=== PATIENT | male | born 1955 | race Caucasian/White ===

== ENCOUNTER 2020-05-30 06:30 | Day surgery (SDC) | payer BC, SELFPAY ==
[2020-05-26 14:44] VITALS: BMI 31.6
--- NOTE | 2020-05-29 09:39 | HO.ANESPROP2 ---
Documented by User: Eve Olivares 05/29/20 09:40 HPI - Anesthesia Eval Consult details Narrative: 64yo M for Colonoscopy FOR[facility]LY [facility] Past Medical History Medical History BPH (benign prostatic hyperplasia) Diabetes mellitus Elevated cholesterol HTN (hypertension) Renal calculi Surgical History Surgical History History of bilateral inguinal hernia repair Social History Social History Alcohol intake: current Alcohol intake frequency: a few times a month Use of substances other than those prescribed or required for medical reasons: No Advance Directives: No Advance Directives Information Provided: No Advance Directives on File: No Meds Allergies Allergy/AdvReac Type Severity Reaction Status Date / Time No Known Allergies Allergy Unverified 04/03/20 17:08 Home Medications Medication Instructions Recorded Confirmed Type atenolol 100 mg PO DAILY 05/26/20 05/26/20 History cholecalciferol (vitamin D3) 25 mcg PO DAILY 05/26/20 05/26/20 History [Vitamin D3] lisinopril 40 mg PO DAILY 05/26/20 05/26/20 History metformin 500 mg PO BID 05/26/20 05/26/20 History nifedipine 30 mg PO DAILY 05/26/20 05/26/20 History oxybutynin chloride 10 mg PO DAILY 05/26/20 05/26/20 History simvastatin 20 mg PO BEDTIME 05/26/20 05/26/20 History tamsulosin 0.4 mg PO BEDTIME 05/26/20 05/26/20 History Exam Exam Date and Time: May 29, 2020 0939 Height,Weight and Vital Signs: Height 5 ft 5 in Weight 86.183 kg Assessment and Plan Assessment Anesthesia Assessment: Chart Reviewed Documented by User: Dmitry Marks 05/30/20 07:53 [facility] Past Medical History Medical History BPH (benign prostatic hyperplasia) Diabetes mellitus Elevated cholesterol HTN (hypertension) Renal calculi Surgical History Surgical History History of bilateral inguinal hernia repair Social History Social History Alcohol intake: current Alcohol intake frequency: a few times a month Use of substances other than those prescribed or required for medical reasons: No Advance Directives: No Advance Directives Information Provided: No Advance Directives on File: No Meds Allergies Allergy/AdvReac Type Severity Reaction Status Date / Time No Known Allergies Allergy Unverified 04/03/20 17:08 Home Medications Medication Instructions Recorded Confirmed Type atenolol 100 mg PO DAILY 05/26/20 05/26/20 History cholecalciferol (vitamin D3) 25 mcg PO DAILY 05/26/20 05/26/20 History [Vitamin D3] lisinopril 40 mg PO DAILY 05/26/20 05/26/20 History metformin 500 mg PO BID 05/26/20 05/26/20 History nifedipine 30 mg PO DAILY 05/26/20 05/26/20 History oxybutynin chloride 10 mg PO DAILY 05/26/20 05/26/20 History simvastatin 20 mg PO BEDTIME 05/26/20 05/26/20 History tamsulosin 0.4 mg PO BEDTIME 05/26/20 05/26/20 History Exam Airway Mallampati Class: II TM Dist: >3cm Neck ROM: Full Denture: Upper Loose/Missing/Broken Teeth: Yes (Lower poor dentition) Heart: [id number] Lungs: cta b/l Assessment and Plan Assessment Anesthesia Assessment: Anesthesia Plan Discussed, Smoking Cess. Discussed, PAT Visit and Chart Reviewed Final Anesthetic Review NPO: Yes ASA Class: III Final Preanesthetic Review: No Changes in Pt Med Stat, Meds/Allgs Chart Reviewed, Consent Obtained/Reviewed and Anes Risks/Benef Reviewed Patient Risk: Low Procedure Risk: Low Assessment/Block/Sedation in SS: Assess/Block/Sedation-SS Anesthetic Plan Anesthetic Plan: MAC: Disposition: Standard PACU
[2020-05-30 07:02] VITALS: BP 170/89; PULSE 72; RESP 18; TEMP 36.1; O2SAT 97
[2020-05-30 07:04] LABS: Glucose, Whole Blood 125 mg/dL (60-115)
[2020-05-30] MEDS: Lactated Ringers 1,000 ML 100 ML IVCONT (07:15)
[2020-05-30 08:35] VITALS: BP 98/63; PULSE 75; RESP 16; TEMP 36.4; O2SAT 96
--- NOTE | 2020-05-30 08:40 | PM.OP ---
Brief Operative Note Date of Service: 05/30/20 Pre-op diagnosis: Screening Post-op diagnosis: other (Colon polyp) Procedure: Colonoscopy to cecum with biopsy and removal of polyp Surgeon: Ravinder Montana Anesthesia: MAC Estimated blood loss (mL): 2.0 Pathology: other (A. Ascending colon polyp) Condition: stable Disposition: PACU
[2020-05-30 08:50] VITALS: BP 109/77; PULSE 69; RESP 17; TEMP 36.4; O2SAT 97
--- NOTE | 2020-05-30 09:05 | HO.POSTANES ---
Post Anesthesia Evaluation Post Anesthesia Evaluation Vital Signs: Vital Signs Temp Pulse Resp BP Pulse Ox 05/30/20 08:35 97.6 F 75 16 98/63 96 05/30/20 07:02 96.9 F 72 18 170/89 H 97 Anesthesia: Monitored Mental Status: Awake Pain Control: Satisfactory Nausea/Vomiting: None Hydration: Adequate Anesthesia-Related Issues: No Anes. Related Issues
--- NOTE | 2020-05-30 09:26 | OP_ITS ---
SURGEON: Ravinder Montana MD INDICATIONS: The patient presents for evaluation of colorectal cancer screening. Full consent obtained from him for this, including risks of bleeding and perforation. PREOPERATIVE DIAGNOSIS: Colorectal cancer screening. POSTOPERATIVE DIAGNOSIS: Colorectal cancer screening, small colon polyp, sigmoid diverticulosis, and internal hemorrhoids. PROCEDURE PERFORMED: Colonoscopy to cecum with biopsy and removal of polyp. ESTIMATED BLOOD LOSS: COMPLICATIONS: ANESTHESIA: Monitored anesthesia care. ASSISTANTS: SPECIMENS: DESCRIPTION OF PROCEDURE: The patient was placed in the left lateral decubitus position. The digital rectal exam revealed no abnormalities. The Olympus video pediatric colonoscope was entered into the rectum and advanced to the cecum with the assistance of abdominal wall pressure. Once in the cecum, I did identify normal-appearing cecal pouch with appendiceal orifice and a normal-appearing ileocecal valve. The entire cecum and ileocecal valve appeared normal. There was transillumination of light deep in the right lower quadrant. The scope was then slowly withdrawn assessing all mucosal surfaces carefully. Preparation was excellent. In the distal ascending colon was a flat approximately 4 mm polyp, which was biopsied and completely removed with cold biopsy forceps. I did not visualize any other polyps, colitis, nor angiodysplasia. There was a mild amount of sigmoid diverticulosis. In the rectum, scope was retroflexed visualizing small internal hemorrhoids, but no other pathology. The rectal mucosa appeared normal. The scope was straightened and withdrawn from the patient. He tolerated the procedure well and was returned to the recovery area in stable condition. IMPRESSION: 1. Small colon polyp, status post biopsy removal. 2. Sigmoid diverticulosis. 3. Internal hemorrhoids. PLAN: The results of the biopsy will be checked. If this is a tubular adenoma, I would recommend a followup colonoscopy in 5 years. If it is only hyperplastic, I would recommend a followup colonoscopy in 10 years. He will otherwise see me on a p.r.n. basis. This has been discussed with his . MD ELIE Oswald/SWATI / [id number]
== END 2020-05-30 09:20 | disposition home or self-care (01) ==
PROVIDERS: PCP Internal Medicine Medical Oncology; Visit Provider Internal Medicine
PROC: 0DJD8ZZ Inspection of Lower Intestinal Tract, Via Natural or Artificial Opening Endoscopic (ICD-10-PCS; CPT 45378; principal; 2020-05-30 07:30)
DX: Z12.11 Encounter for screening for malignant neoplasm of colon (principal); D12.2 Benign neoplasm of ascending colon; K57.30 Diverticulosis of large intestine without perforation or abscess without bleeding; K64.8 Other hemorrhoids; I10 Essential (primary) hypertension; E11.9 Type 2 diabetes mellitus without complications; N40.0 Benign prostatic hyperplasia without lower urinary tract symptoms; E78.00 Pure hypercholesterolemia, unspecified; Z79.84 Long term (current) use of oral hypoglycemic drugs; Z79.899 Other long term (current) drug therapy
CPT/HCPCS: 45380; 82947; 88305

== ENCOUNTER 2020-06-06 08:01 | Outpatient (REF) | payer BC, SELFPAY ==
[2020-06-06 10:06] LABS: MANUAL DIFF FLAG NO
[2020-06-06 10:13] LABS: Basophils Percent Auto 0.7 % (0-2); Eosinophils Absolute Auto 0.2 X10*3/uL (0.0-0.4); Eosinophils Percent Auto 3.6 % (0-4); Hemoglobin 15.6 g/dl (14.0-18.0); Imm Gran Abs Auto 0.02 X10*3/uL (0.00-0.03); Imm Gran Pct Auto 0.4 % (0.0-0.4); Lymphocytes Absolute Auto 1.5 X10*3/uL (1.2-4.9); Lymphocytes Percent Auto 27.2 % (20-40); Mean Corpuscular HGB Conc 33.9 g/dl (31.0-36.0); Mean Corpuscular Hemoglobin 29.8 pg (27.0-33.0); Mean Platelet Volume 10.4 fL (9.4-12.4); Monocytes Absolute Auto 0.4 X10*3/uL (0.1-1.2); Neutrophils Absolute Auto 3.3 X10*3/uL (2.0-8.3); Neutrophils Percent Auto 60.1 % (45-73); Platelet Count 208 X10*3/uL (160-400); Red Blood Count 5.23 X10*6/uL (4.60-5.80); Red Cell Distribution Width 11.9 % (11.0-16.0); White Blood Count 5.5 X10*3/uL (4.8-10.8)
[2020-06-06 10:36] LABS: Estimated Average Glucose 137 mg/dL; Hemoglobin A1c % 6.4 %
[2020-06-06 10:41] LABS: Alanine Aminotransferase 13 U/L (0-40); Albumin Level 4.3 g/dL (3.5-5.0); Alkaline Phosphatase 97 U/L (39-117); Anion Gap 11 (12-20); Aspartate Amino Transferase 10 U/L (5-37); Bilirubin Total 0.7 mg/dL (0.0-1.0); Blood Urea Nitrogen 14 mg/dL (9-16); Carbon Dioxide 29 mmol/L (22-29); Chloride 103 mmol/L (96-108); Cholesterol 156 mg/dL; Estimated Glomerular Filt Rate > 60; Glucose Fasting 139 mg/dL (60-99); HDL Cholesterol 46 mg/dL; LDL Cholesterol Calculated 89 mg/dl; Potassium 4.2 mmol/l (3.3-5.1); Sodium 139 mmol/L (135-145); Total Protein 6.8 g/dL (6.5-8.0); Triglycerides 108 mg/dL
== END 2020-06-06 08:02 | disposition home or self-care (01) ==
LOC: HO.10HDL 08:01
PROVIDERS: Visit Provider Internal Medicine Medical Oncology
DX: E11.9 Type 2 diabetes mellitus without complications (principal); E78.5 Hyperlipidemia, unspecified; I10 Essential (primary) hypertension
CPT/HCPCS: 36415; 80053; 80061; 83036; 85025

== ENCOUNTER 2020-08-18 12:47 | Outpatient (REF) | payer BC, SELFPAY | END 2020-08-18 12:48 | disposition home or self-care (01) | LOC: HO.LAB 12:47 | PROVIDERS: Visit Provider Internal Medicine | DX: Z20.822 Contact with and (suspected) exposure to COVID-19 (principal) | CPT/HCPCS: 36415; C9803; U0003; U0005 ==

== ENCOUNTER 2020-09-24 07:32 | Outpatient (REF) | payer BC, SELFPAY ==
[2020-09-24 09:57] LABS: MANUAL DIFF FLAG NO
[2020-09-24 10:07] LABS: Basophils Absolute Auto 0.1 X10*3/uL (0.0-0.2); Eosinophils Absolute Auto 0.3 X10*3/uL (0.0-0.4); Eosinophils Percent Auto 5.6 % (0-4); Hematocrit 42.4 % (42-52); Hemoglobin 14.5 g/dl (14.0-18.0); Imm Gran Abs Auto 0.02 X10*3/uL (0.00-0.03); Imm Gran Pct Auto 0.3 % (0.0-0.4); Lymphocytes Absolute Auto 1.6 X10*3/uL (1.2-4.9); Lymphocytes Percent Auto 26.1 % (20-40); Mean Corpuscular HGB Conc 34.2 g/dl (31.0-36.0); Mean Corpuscular Hemoglobin 29.7 pg (27.0-33.0); Mean Corpuscular Volume 86.9 fL (80-98); Mean Platelet Volume 10.3 fL (9.4-12.4); Monocytes Absolute Auto 0.6 X10*3/uL (0.1-1.2); Monocytes Percent Auto 9.4 % (2-11); Neutrophils Absolute Auto 3.5 X10*3/uL (2.0-8.3); Neutrophils Percent Auto 57.6 % (45-73); Platelet Count 230 X10*3/uL (160-400); Red Blood Count 4.88 X10*6/uL (4.60-5.80); Red Cell Distribution Width 12.9 % (11.0-16.0); White Blood Count 6.1 X10*3/uL (4.8-10.8)
[2020-09-24 10:41] LABS: Alanine Aminotransferase 12 U/L (0-40); Albumin Level 4.4 g/dL (3.5-5.0); Alkaline Phosphatase 94 U/L (39-117); Anion Gap 13 (12-20); Aspartate Amino Transferase 10 U/L (5-37); Blood Urea Nitrogen 15 mg/dL (9-16); Carbon Dioxide 27 mmol/L (22-29); Chloride 104 mmol/L (96-108); Cholesterol 162 mg/dL; Estimated Glomerular Filt Rate > 60; Glucose Fasting 146 mg/dL (60-99); HDL Cholesterol 44 mg/dL; LDL Cholesterol Calculated 103 mg/dl; Potassium 3.9 mmol/L (3.3-5.1); Sodium 140 mmol/L (135-145); Total Protein 6.8 g/dL (6.5-8.0); Triglycerides 76 mg/dL
[2020-09-24 11:04] LABS: Prostate Specific Antigen 1.26 ng/mL (<0.05-4.0)
== END 2020-09-24 07:33 | disposition home or self-care (01) ==
LOC: HO.10HDL 07:32
PROVIDERS: Visit Provider Internal Medicine Medical Oncology
DX: E78.5 Hyperlipidemia, unspecified (principal); E11.9 Type 2 diabetes mellitus without complications; I10 Essential (primary) hypertension; N40.1 Benign prostatic hyperplasia with lower urinary tract symptoms
CPT/HCPCS: 36415; 80053; 80061; 84153; 85025

== ENCOUNTER 2021-02-04 07:34 | Outpatient (REF) | payer MEDICARE, SELFPAY ==
[2021-02-04 10:24] LABS: MANUAL DIFF FLAG NO
[2021-02-04 10:29] LABS: Basophils Percent Auto 0.6 % (0-2); Eosinophils Absolute Auto 0.4 X10*3/uL (0.0-0.4); Eosinophils Percent Auto 5.2 % (0-4); Hematocrit 43.4 % (42-52); Hemoglobin 14.6 g/dl (14.0-18.0); Imm Gran Abs Auto 0.03 X10*3/uL (0.00-0.03); Imm Gran Pct Auto 0.4 % (0.0-0.4); Lymphocytes Absolute Auto 1.8 X10*3/uL (1.2-4.9); Lymphocytes Percent Auto 24.5 % (20-40); Mean Corpuscular HGB Conc 33.6 g/dl (31.0-36.0); Mean Corpuscular Hemoglobin 29.5 pg (27.0-33.0); Mean Corpuscular Volume 87.7 fL (80-98); Mean Platelet Volume 10.6 fL (9.4-12.4); Monocytes Absolute Auto 0.6 X10*3/uL (0.1-1.2); Monocytes Percent Auto 8.8 % (2-11); Neutrophils Absolute Auto 4.4 X10*3/uL (2.0-8.3); Neutrophils Percent Auto 60.5 % (45-73); Platelet Count 212 X10*3/uL (160-400); Red Blood Count 4.95 X10*6/uL (4.60-5.80); Red Cell Distribution Width 12.8 % (11.0-16.0); White Blood Count 7.3 X10*3/uL (4.8-10.8)
[2021-02-04 10:40] LABS: Alanine Aminotransferase 10 U/L (0-40); Albumin Level 4.3 g/dL (3.5-5.0); Alkaline Phosphatase 101 U/L (39-117); Anion Gap 14 (12-20); Aspartate Amino Transferase 12 U/L (5-37); Bilirubin Total 1.1 mg/dL (0.0-1.0); Blood Urea Nitrogen 14 mg/dL (9-16); Calcium 9.3 mg/dL (8.4-10.2); Carbon Dioxide 25 mmol/L (22-29); Chloride 105 mmol/L (96-108); Cholesterol 146 mg/dL; Estimated Glomerular Filt Rate > 60; Glucose Fasting 145 mg/dL (60-99); HDL Cholesterol 46 mg/dL; LDL Cholesterol Calculated 80 mg/dl; Potassium 3.6 mmol/L (3.3-5.1); Sodium 140 mmol/L (135-145); Total Protein 6.9 g/dL (6.5-8.0); Triglycerides 102 mg/dL
[2021-02-04 10:41] LABS: Estimated Average Glucose 148 mg/dL; Hemoglobin A1c % 6.8 %
[2021-02-04 10:53] LABS: Creatinine Urine 70.66 mg/dL; Microalbum/Creatinine Ratio Ur 50.9 ug/mg cr
== END 2021-02-04 07:35 | disposition home or self-care (01) ==
LOC: HO.10HDL 07:34
PROVIDERS: PCP Internal Medicine Medical Oncology; Visit Provider Internal Medicine Medical Oncology
DX: E11.9 Type 2 diabetes mellitus without complications (principal); E78.5 Hyperlipidemia, unspecified; I10 Essential (primary) hypertension; E66.9 Obesity, unspecified
CPT/HCPCS: 36415; 80053; 80061; 82043; 83036; 85025

== ENCOUNTER 2021-06-17 08:13 | Outpatient (REF) | payer MEDICARE, SELFPAY ==
[2021-06-17 10:11] LABS: MANUAL DIFF FLAG NO
[2021-06-17 10:18] LABS: Basophils Absolute Auto 0.1 X10*3/uL (0.0-0.2); Basophils Percent Auto 0.8 % (0-2); Eosinophils Absolute Auto 0.3 X10*3/uL (0.0-0.4); Eosinophils Percent Auto 4.8 % (0-4); Hematocrit 46.4 % (42.0-52.0); Hemoglobin 15.8 g/dl (14.0-18.0); Imm Gran Abs Auto 0.02 X10*3/uL (0.00-0.03); Imm Gran Pct Auto 0.3 % (0.0-0.4); Lymphocytes Absolute Auto 1.5 X10*3/uL (1.2-4.9); Lymphocytes Percent Auto 23.3 % (20-40); Mean Corpuscular HGB Conc 34.1 g/dl (31.0-36.0); Mean Corpuscular Hemoglobin 29.8 pg (27.0-33.0); Mean Corpuscular Volume 87.4 fL (80.0-98.0); Mean Platelet Volume 10.5 fL (9.4-12.4); Monocytes Absolute Auto 0.5 X10*3/uL (0.1-1.2); Neutrophils Absolute Auto 3.9 x10*3/uL (2.0-8.3); Neutrophils Percent Auto 62.8 % (45-73); Platelet Count 217 X10*3/uL (160-400); Red Blood Count 5.31 X10*6/uL (4.60-5.80); White Blood Count 6.3 X10*3/uL (4.8-10.8)
[2021-06-17 10:28] LABS: Estimated Average Glucose 140 mg/dL; Hemoglobin A1c % 6.5 %
[2021-06-17 10:53] LABS: Alanine Aminotransferase 14 U/L (0-40); Albumin Level 4.5 g/dL (3.5-5.0); Alkaline Phosphatase 101 U/L (39-117); Anion Gap 14 (12-20); Aspartate Amino Transferase 12 U/L (5-37); Blood Urea Nitrogen 15 mg/dL (9-16); Calcium 9.6 mg/dL (8.4-10.2); Carbon Dioxide 26 mmol/L (22-29); Chloride 103 mmol/L (96-108); Cholesterol 176 mg/dL; Estimated Glomerular Filt Rate > 60; Glucose Fasting 160 mg/dL (60-99); HDL Cholesterol 41 mg/dL; LDL Cholesterol Calculated 112 mg/dl; Potassium 3.7 mmol/L (3.3-5.1); Sodium 139 mmol/L (135-145); Total Protein 7.1 g/dL (6.5-8.0); Triglycerides 115 mg/dL
[2021-06-17 11:02] LABS: Prostate Specific Antigen 1.28 ng/mL (<0.05-4.0)
== END 2021-06-17 08:14 | disposition home or self-care (01) ==
LOC: HO.10HDL 08:13
PROVIDERS: Visit Provider Internal Medicine Medical Oncology
DX: Z12.5 Encounter for screening for malignant neoplasm of prostate (principal); E11.9 Type 2 diabetes mellitus without complications; E78.5 Hyperlipidemia, unspecified; E66.9 Obesity, unspecified
CPT/HCPCS: 36415; 80053; 80061; 83036; 84153; 85025

== ENCOUNTER 2021-09-18 08:27 | Outpatient (REF) | payer MEDICARE, SELFPAY ==
[2021-09-18 12:06] LABS: MANUAL DIFF FLAG NO
[2021-09-18 12:09] LABS: Basophils Absolute Auto 0.1 X10*3/uL (0.0-0.2); Basophils Percent Auto 0.8 % (0-2); Eosinophils Absolute Auto 0.3 X10*3/uL (0.0-0.4); Eosinophils Percent Auto 4.6 % (0-4); Hematocrit 46.1 % (42.0-52.0); Hemoglobin 15.7 g/dl (14.0-18.0); Imm Gran Abs Auto 0.03 X10*3/uL (0.00-0.03); Imm Gran Pct Auto 0.4 % (0.0-0.4); Lymphocytes Absolute Auto 1.5 X10*3/uL (1.2-4.9); Lymphocytes Percent Auto 20.8 % (20-40); Mean Corpuscular HGB Conc 34.1 g/dl (31.0-36.0); Mean Platelet Volume 10.9 fL (9.4-12.4); Monocytes Absolute Auto 0.6 X10*3/uL (0.1-1.2); Monocytes Percent Auto 7.8 % (2-11); Neutrophils Absolute Auto 4.8 x10*3/uL (2.0-8.3); Neutrophils Percent Auto 65.6 % (45-73); Platelet Count 209 X10*3/uL (160-400); Red Blood Count 5.24 X10*6/uL (4.60-5.80); Red Cell Distribution Width 12.3 % (11.0-16.0); White Blood Count 7.3 X10*3/uL (4.8-10.8)
[2021-09-18 12:21] LABS: Estimated Average Glucose 146 mg/dL; Hemoglobin A1c % 6.7 %
[2021-09-18 12:32] LABS: Alanine Aminotransferase 14 U/L (0-40); Albumin Level 4.3 g/dL (3.5-5.0); Alkaline Phosphatase 101 U/L (39-117); Anion Gap 14 (12-20); Aspartate Amino Transferase 10 U/L (5-37); Bilirubin Total 1.1 mg/dL (0.0-1.0); Blood Urea Nitrogen 15 mg/dL (9-16); Calcium 9.7 mg/dL (8.4-10.2); Carbon Dioxide 27 mmol/L (22-29); Chloride 102 mmol/L (96-108); Cholesterol 172 mg/dL; Estimated Glomerular Filt Rate > 60; Glucose Fasting 166 mg/dL (60-99); HDL Cholesterol 43 mg/dL; LDL Cholesterol Calculated 102 mg/dl; Potassium 3.8 mmol/L (3.3-5.1); Sodium 139 mmol/L (135-145); Total Protein 6.9 g/dL (6.5-8.0); Triglycerides 136 mg/dL
[2021-09-18 12:42] LABS: Creatinine Urine 55.56 mg/dL; Microalbum/Creatinine Ratio Ur 21.5 ug/mg cr
== END 2021-09-18 08:28 | disposition home or self-care (01) ==
LOC: HO.10HDL 08:27
PROVIDERS: Visit Provider Internal Medicine Medical Oncology
DX: E11.9 Type 2 diabetes mellitus without complications (principal); E78.5 Hyperlipidemia, unspecified
CPT/HCPCS: 36415; 80053; 80061; 82043; 83036; 85025

== ENCOUNTER 2021-12-17 06:22 | Outpatient (REF) | payer MEDICARE, SELFPAY ==
[2021-12-17 11:19] LABS: MANUAL DIFF FLAG NO
[2021-12-17 11:27] LABS: Basophils Absolute Auto 0.1 X10*3/uL (0.0-0.2); Basophils Percent Auto 0.9 % (0-2); Eosinophils Absolute Auto 0.4 X10*3/uL (0.0-0.4); Eosinophils Percent Auto 5.7 % (0-4); Hematocrit 45.5 % (42.0-52.0); Hemoglobin 15.3 g/dl (14.0-18.0); Imm Gran Abs Auto 0.02 X10*3/uL (0.00-0.03); Imm Gran Pct Auto 0.3 % (0.0-0.4); Lymphocytes Absolute Auto 1.4 X10*3/uL (1.2-4.9); Lymphocytes Percent Auto 22.1 % (20-40); Mean Corpuscular HGB Conc 33.6 g/dl (31.0-36.0); Mean Corpuscular Hemoglobin 30.3 pg (27.0-33.0); Mean Corpuscular Volume 90.1 fL (80.0-98.0); Mean Platelet Volume 10.7 fL (9.4-12.4); Monocytes Absolute Auto 0.5 X10*3/uL (0.1-1.2); Monocytes Percent Auto 8.3 % (2-11); Neutrophils Absolute Auto 4.1 x10*3/uL (2.0-8.3); Neutrophils Percent Auto 62.7 % (45-73); Platelet Count 225 X10*3/uL (160-400); Red Blood Count 5.05 X10*6/uL (4.60-5.80); Red Cell Distribution Width 12.7 % (11.0-16.0); White Blood Count 6.5 X10*3/uL (4.8-10.8)
[2021-12-17 11:31] LABS: Estimated Average Glucose 146 mg/dL; Hemoglobin A1c % 6.7 %
[2021-12-17 11:42] LABS: Microalbum/Creatinine Ratio Ur 27.8 ug/mg cr
[2021-12-17 11:45] LABS: Alanine Aminotransferase 12 U/L (0-40); Albumin Level 4.4 g/dL (3.5-5.0); Alkaline Phosphatase 104 U/L (39-117); Anion Gap 11 (12-20); Aspartate Amino Transferase 11 U/L (5-37); Bilirubin Total 0.8 mg/dL (0.0-1.0); Blood Urea Nitrogen 10 mg/dL (9-16); Calcium 9.5 mg/dL (8.4-10.2); Carbon Dioxide 26 mmol/L (22-29); Chloride 103 mmol/L (96-108); Cholesterol 162 mg/dL; Estimated Glomerular Filt Rate > 60; Glucose Fasting 163 mg/dL (60-99); HDL Cholesterol 43 mg/dL; LDL Cholesterol Calculated 99 mg/dl; Potassium 3.7 mmol/L (3.3-5.1); Sodium 136 mmol/L (135-145); Total Protein 6.9 g/dL (6.5-8.0); Triglycerides 103 mg/dL
[2021-12-17 12:10] LABS: Prostate Specific Antigen 1.56 ng/mL (<0.05-4.0)
== END 2021-12-17 06:23 | disposition home or self-care (01) ==
LOC: HO.HMGCLDS 06:22
PROVIDERS: PCP Internal Medicine Medical Oncology; Visit Provider Internal Medicine Medical Oncology
DX: E11.9 Type 2 diabetes mellitus without complications (principal); E78.5 Hyperlipidemia, unspecified; I10 Essential (primary) hypertension; N40.1 Benign prostatic hyperplasia with lower urinary tract symptoms; Z12.5 Encounter for screening for malignant neoplasm of prostate
CPT/HCPCS: 36415; 80053; 80061; 82043; 83036; 84153; 85025

== ENCOUNTER 2022-03-18 06:57 | Outpatient (REF) | payer MEDICARE, SELFPAY ==
[2022-03-18 11:36] LABS: MANUAL DIFF FLAG NO
[2022-03-18 11:42] LABS: Basophils Absolute Auto 0.1 X10*3/uL (0.0-0.2); Basophils Percent Auto 0.6 % (0-2); Eosinophils Absolute Auto 0.4 X10*3/uL (0.0-0.4); Eosinophils Percent Auto 5.5 % (0-4); Hematocrit 42.6 % (42.0-52.0); Hemoglobin 14.6 g/dl (14.0-18.0); Imm Gran Abs Auto 0.06 X10*3/uL (0.00-0.03); Imm Gran Pct Auto 0.7 % (0.0-0.4); Lymphocytes Percent Auto 24.3 % (20-40); Mean Corpuscular HGB Conc 34.3 g/dl (31.0-36.0); Mean Corpuscular Volume 87.7 fL (80.0-98.0); Mean Platelet Volume 10.5 fL (9.4-12.4); Monocytes Absolute Auto 0.7 X10*3/uL (0.1-1.2); Monocytes Percent Auto 8.2 % (2-11); Neutrophils Absolute Auto 4.9 x10*3/uL (2.0-8.3); Neutrophils Percent Auto 60.7 % (45-73); Platelet Count 263 X10*3/uL (160-400); Red Blood Count 4.86 X10*6/uL (4.60-5.80); White Blood Count 8.1 X10*3/uL (4.8-10.8)
[2022-03-18 11:51] LABS: Estimated Average Glucose 146 mg/dL; Hemoglobin A1c % 6.7 %
[2022-03-18 11:58] LABS: Alanine Aminotransferase 14 U/L (0-40); Albumin Level 4.3 g/dL (3.5-5.0); Alkaline Phosphatase 103 U/L (39-117); Anion Gap 17 (12-20); Aspartate Amino Transferase 11 U/L (5-37); Bilirubin Total 0.7 mg/dL (0.0-1.0); Blood Urea Nitrogen 16 mg/dL (9-16); Calcium 9.5 mg/dL (8.4-10.2); Carbon Dioxide 24 mmol/L (22-29); Chloride 103 mmol/L (96-108); Cholesterol 164 mg/dL; Estimated Glomerular Filt Rate > 60; Glucose Fasting 200 mg/dL (60-99); HDL Cholesterol 42 mg/dL; LDL Cholesterol Calculated 100 mg/dl; Sodium 140 mmol/L (135-145); Total Protein 6.9 g/dL (6.5-8.0); Triglycerides 114 mg/dL
== END 2022-03-18 06:58 | disposition home or self-care (01) ==
LOC: HO.HMGCLDS 06:57
PROVIDERS: PCP Internal Medicine Medical Oncology; Visit Provider Internal Medicine Medical Oncology
DX: E11.9 Type 2 diabetes mellitus without complications (principal); E78.5 Hyperlipidemia, unspecified; I10 Essential (primary) hypertension
CPT/HCPCS: 36415; 80053; 80061; 83036; 85025

== ENCOUNTER 2022-06-03 06:22 | Outpatient (REF) | payer MEDICARE, SELFPAY ==
[2022-06-03 11:24] LABS: MANUAL DIFF FLAG NO
[2022-06-03 11:43] LABS: Basophils Absolute Auto 0.1 X10*3/uL (0.0-0.2); Basophils Percent Auto 0.9 % (0-2); Eosinophils Absolute Auto 0.3 X10*3/uL (0.0-0.4); Eosinophils Percent Auto 5.3 % (0-4); Hematocrit 44.9 % (42.0-52.0); Imm Gran Abs Auto 0.02 X10*3/uL (0.00-0.03); Imm Gran Pct Auto 0.3 % (0.0-0.4); Lymphocytes Absolute Auto 1.8 X10*3/uL (1.2-4.9); Lymphocytes Percent Auto 28.5 % (20-40); Mean Corpuscular HGB Conc 33.4 g/dl (31.0-36.0); Mean Corpuscular Hemoglobin 29.8 pg (27.0-33.0); Mean Corpuscular Volume 89.3 fL (80.0-98.0); Mean Platelet Volume 10.9 fL (9.4-12.4); Monocytes Absolute Auto 0.5 X10*3/uL (0.1-1.2); Monocytes Percent Auto 8.1 % (2-11); Neutrophils Absolute Auto 3.7 x10*3/uL (2.0-8.3); Neutrophils Percent Auto 56.9 % (45-73); Platelet Count 210 X10*3/uL (160-400); Red Blood Count 5.03 X10*6/uL (4.60-5.80); Red Cell Distribution Width 12.7 % (11.0-16.0); White Blood Count 6.5 X10*3/uL (4.8-10.8)
[2022-06-03 12:10] LABS: Alanine Aminotransferase 13 U/L (0-40); Albumin Level 4.2 g/dL (3.5-5.0); Alkaline Phosphatase 94 U/L (39-117); Anion Gap 12 (12-20); Aspartate Amino Transferase 10 U/L (5-37); Bilirubin Total 0.8 mg/dL (0.0-1.0); Blood Urea Nitrogen 16 mg/dL (9-16); Calcium 9.3 mg/dL (8.4-10.2); Carbon Dioxide 29 mmol/L (22-29); Chloride 102 mmol/L (96-108); Cholesterol 158 mg/dL; Estimated Glomerular Filt Rate > 60; Glucose Fasting 176 mg/dL (60-99); HDL Cholesterol 46 mg/dL; LDL Cholesterol Calculated 94 mg/dl; Sodium 139 mmol/L (135-145); Total Protein 6.6 g/dL (6.5-8.0); Triglycerides 94 mg/dL
[2022-06-03 12:16] LABS: Creatinine Urine 96.59 mg/dL; Microalbum/Creatinine Ratio Ur 25.8 ug/mg cr
[2022-06-03 12:43] LABS: Estimated Average Glucose 151 mg/dL; Hemoglobin A1c % 6.9 %
== END 2022-06-03 06:23 | disposition home or self-care (01) ==
LOC: HO.HMGCLDS 06:22
PROVIDERS: PCP Internal Medicine Medical Oncology; Visit Provider Internal Medicine Medical Oncology
DX: E11.9 Type 2 diabetes mellitus without complications (principal); E66.9 Obesity, unspecified; E78.5 Hyperlipidemia, unspecified; I10 Essential (primary) hypertension
CPT/HCPCS: 36415; 80053; 80061; 82043; 83036; 85025

== ENCOUNTER 2022-10-06 07:57 | Outpatient (REF) | payer MEDICARE, SELFPAY ==
[2022-10-06 11:52] LABS: MANUAL DIFF FLAG NO
[2022-10-06 12:12] LABS: Basophils Absolute Auto 0.1 X10*3/uL (0.0-0.2); Basophils Percent Auto 1.1 % (0-2); Eosinophils Absolute Auto 0.4 X10*3/uL (0.0-0.4); Hematocrit 45.4 % (42.0-52.0); Hemoglobin 15.3 g/dl (14.0-18.0); Imm Gran Abs Auto 0.04 X10*3/uL (0.00-0.03); Imm Gran Pct Auto 0.6 % (0.0-0.4); Lymphocytes Absolute Auto 1.5 X10*3/uL (1.2-4.9); Lymphocytes Percent Auto 23.1 % (20-40); Mean Corpuscular HGB Conc 33.7 g/dl (31.0-36.0); Mean Corpuscular Hemoglobin 29.3 pg (27.0-33.0); Mean Platelet Volume 10.8 fL (9.4-12.4); Monocytes Absolute Auto 0.5 X10*3/uL (0.1-1.2); Monocytes Percent Auto 7.4 % (2-11); Neutrophils Absolute Auto 3.9 x10*3/uL (2.0-8.3); Neutrophils Percent Auto 60.8 % (45-73); Platelet Count 226 X10*3/uL (160-400); Red Blood Count 5.22 X10*6/uL (4.60-5.80); Red Cell Distribution Width 12.6 % (11.0-16.0); White Blood Count 6.3 X10*3/uL (4.8-10.8)
[2022-10-06 12:50] LABS: Estimated Average Glucose 189 mg/dL; Hemoglobin A1c % 8.2 %
[2022-10-06 12:54] LABS: Alanine Aminotransferase 12 U/L (0-40); Albumin Level 4.2 g/dL (3.5-5.0); Alkaline Phosphatase 105 U/L (39-117); Anion Gap 13 (12-20); Aspartate Amino Transferase 10 U/L (5-37); Blood Urea Nitrogen 13 mg/dL (9-16); Calcium 9.3 mg/dL (8.4-10.2); Carbon Dioxide 27 mmol/L (22-29); Chloride 103 mmol/L (96-108); Cholesterol 160 mg/dL; Estimated Glomerular Filt Rate > 60; Glucose Fasting 262 mg/dL (60-99); HDL Cholesterol 43 mg/dL; LDL Cholesterol Calculated 95 mg/dl; Potassium 3.9 mmol/L (3.3-5.1); Prostate Specific Antigen 1.47 ng/mL (<0.05-4.0); Sodium 139 mmol/L (135-145); Total Protein 6.5 g/dL (6.5-8.0); Triglycerides 110 mg/dL
== END 2022-10-06 07:58 | disposition home or self-care (01) ==
LOC: HO.HMGCLDS 07:57
PROVIDERS: PCP Internal Medicine Medical Oncology; Visit Provider Internal Medicine Medical Oncology
DX: Z00.00 Encounter for general adult medical examination without abnormal findings (principal); E11.9 Type 2 diabetes mellitus without complications; Z12.5 Encounter for screening for malignant neoplasm of prostate
CPT/HCPCS: 36415; 80053; 80061; 83036; 84153; 85025

== ENCOUNTER 2023-02-08 06:42 | Outpatient (REF) | payer MEDICARE, SELFPAY ==
[2023-02-08 11:12] LABS: MANUAL DIFF FLAG NO
[2023-02-08 12:00] LABS: Basophils Absolute Auto 0.1 X10*3/uL (0.0-0.2); Basophils Percent Auto 0.8 % (0-2); Eosinophils Absolute Auto 0.3 X10*3/uL (0.0-0.4); Eosinophils Percent Auto 5.1 % (0-4); Hematocrit 44.4 % (42.0-52.0); Hemoglobin 14.7 g/dl (14.0-18.0); Imm Gran Abs Auto 0.01 X10*3/uL (0.00-0.03); Imm Gran Pct Auto 0.2 % (0.0-0.4); Lymphocytes Absolute Auto 1.6 X10*3/uL (1.2-4.9); Lymphocytes Percent Auto 26.8 % (20-40); Mean Corpuscular HGB Conc 33.1 g/dl (31.0-36.0); Mean Corpuscular Hemoglobin 29.9 pg (27.0-33.0); Mean Corpuscular Volume 90.4 fL (80.0-98.0); Mean Platelet Volume 10.9 fL (9.4-12.4); Monocytes Absolute Auto 0.5 X10*3/uL (0.1-1.2); Monocytes Percent Auto 8.8 % (2-11); Neutrophils Absolute Auto 3.5 x10*3/uL (2.0-8.3); Neutrophils Percent Auto 58.3 % (45-73); Platelet Count 221 X10*3/uL (160-400); Red Blood Count 4.91 X10*6/uL (4.60-5.80); Red Cell Distribution Width 12.3 % (11.0-16.0); White Blood Count 6.1 X10*3/uL (4.8-10.8)
[2023-02-08 12:09] LABS: Estimated Average Glucose 169 mg/dL; Hemoglobin A1c % 7.5 %
[2023-02-08 12:32] LABS: Alanine Aminotransferase 14 U/L (0-40); Albumin Level 4.2 g/dL (3.5-5.0); Alkaline Phosphatase 87 U/L (39-117); Anion Gap 10 (12-20); Aspartate Amino Transferase 14 U/L (5-37); Bilirubin Total 0.6 mg/dL (0.0-1.0); Blood Urea Nitrogen 13 mg/dL (9-16); Calcium 9.2 mg/dL (8.4-10.2); Carbon Dioxide 28 mmol/L (22-29); Chloride 105 mmol/L (96-108); Cholesterol 139 mg/dL; Estimated Glomerular Filt Rate > 60; Glucose Fasting 178 mg/dL (60-99); HDL Cholesterol 38 mg/dL; LDL Cholesterol Calculated 75 mg/dl; Potassium 3.7 mmol/L (3.3-5.1); Sodium 139 mmol/L (135-145); Total Protein 6.8 g/dL (6.5-8.0); Triglycerides 132 mg/dL
[2023-02-08 12:45] LABS: Creatinine Urine 58.19 mg/dL
== END 2023-02-08 06:43 | disposition home or self-care (01) ==
LOC: HO.HMGCLDS 06:42
PROVIDERS: PCP Internal Medicine Medical Oncology; Visit Provider Internal Medicine Medical Oncology
DX: E11.9 Type 2 diabetes mellitus without complications (principal); E78.5 Hyperlipidemia, unspecified; I10 Essential (primary) hypertension; E66.9 Obesity, unspecified
CPT/HCPCS: 36415; 80053; 80061; 82043; 83036; 85025

== ENCOUNTER 2023-06-06 07:41 | Outpatient (REF) | payer MEDICARE, SELFPAY ==
[2023-06-06 11:31] LABS: MANUAL DIFF FLAG NO
[2023-06-06 11:38] LABS: Basophils Absolute Auto 0.1 X10*3/uL (0.0-0.2); Basophils Percent Auto 0.9 % (0-2); Eosinophils Absolute Auto 0.3 X10*3/uL (0.0-0.4); Hematocrit 43.6 % (42.0-52.0); Hemoglobin 14.9 g/dl (14.0-18.0); Imm Gran Abs Auto 0.01 X10*3/uL (0.00-0.03); Imm Gran Pct Auto 0.2 % (0.0-0.4); Lymphocytes Absolute Auto 1.5 X10*3/uL (1.2-4.9); Lymphocytes Percent Auto 26.8 % (20-40); Mean Corpuscular HGB Conc 34.2 g/dl (31.0-36.0); Mean Corpuscular Volume 87.7 fL (80.0-98.0); Mean Platelet Volume 10.8 fL (9.4-12.4); Monocytes Absolute Auto 0.5 X10*3/uL (0.1-1.2); Monocytes Percent Auto 8.8 % (2-11); Neutrophils Absolute Auto 3.2 x10*3/uL (2.0-8.3); Neutrophils Percent Auto 58.3 % (45-73); Platelet Count 202 X10*3/uL (160-400); Red Blood Count 4.97 X10*6/uL (4.60-5.80); White Blood Count 5.5 X10*3/uL (4.8-10.8)
[2023-06-06 11:48] LABS: Estimated Average Glucose 197 mg/dL; Hemoglobin A1c % 8.5 % (<6.0)
[2023-06-06 12:03] LABS: Creatinine Urine 63.66 mg/dL; Microalbum/Creatinine Ratio Ur 21.9 ug/mg cr (<30)
[2023-06-06 13:01] LABS: Alanine Aminotransferase 12 U/L (0-40); Albumin Level 4.2 g/dL (3.5-5.0); Alkaline Phosphatase 87 U/L (39-117); Anion Gap 11 (12-20); Aspartate Amino Transferase 10 U/L (5-37); Bilirubin Total 0.7 mg/dL (0.0-1.0); Blood Urea Nitrogen 17 mg/dL (9-16); Carbon Dioxide 28 mmol/L (22-29); Chloride 105 mmol/L (96-108); Cholesterol 163 mg/dL (<200); Estimated Glomerular Filt Rate > 60; Glucose Fasting 201 mg/dL (60-99); HDL Cholesterol 44 mg/dL (>40); LDL Cholesterol Calculated 96 mg/dL (<100); Potassium 3.5 mmol/L (3.3-5.1); Sodium 140 mmol/L (135-145); Total Protein 6.6 g/dL (6.5-8.0); Triglycerides 115 mg/dL (<150)
== END 2023-06-06 07:42 | disposition home or self-care (01) ==
LOC: HO.HMGCLDS 07:41
PROVIDERS: PCP Internal Medicine Medical Oncology; Visit Provider Internal Medicine Medical Oncology
DX: Z12.5 Encounter for screening for malignant neoplasm of prostate (principal); E11.9 Type 2 diabetes mellitus without complications; E78.5 Hyperlipidemia, unspecified; I10 Essential (primary) hypertension; E66.9 Obesity, unspecified; N40.1 Benign prostatic hyperplasia with lower urinary tract symptoms
CPT/HCPCS: 36415; 80053; 80061; 82043; 82570; 83036; 84153; 85025

== ENCOUNTER 2023-09-24 06:41 | Outpatient (REF) | payer MEDICARE, SELFPAY ==
[2023-09-24 11:09] LABS: MANUAL DIFF FLAG NO
[2023-09-24 11:11] LABS: Basophils Absolute Auto 0.1 X10*3/uL (0.0-0.2); Basophils Percent Auto 1.2 % (0-2); Eosinophils Absolute Auto 0.3 X10*3/uL (0.0-0.4); Eosinophils Percent Auto 5.7 % (0-4); Hematocrit 44.6 % (42.0-52.0); Imm Gran Abs Auto 0.01 X10*3/uL (0.00-0.03); Imm Gran Pct Auto 0.2 % (0.0-0.4); Lymphocytes Absolute Auto 1.6 X10*3/uL (1.2-4.9); Lymphocytes Percent Auto 27.2 % (20-40); Mean Corpuscular HGB Conc 33.6 g/dl (31.0-36.0); Mean Corpuscular Hemoglobin 29.5 pg (27.0-33.0); Mean Corpuscular Volume 87.8 fL (80.0-98.0); Mean Platelet Volume 10.6 fL (9.4-12.4); Monocytes Absolute Auto 0.6 X10*3/uL (0.1-1.2); Monocytes Percent Auto 9.2 % (2-11); Neutrophils Absolute Auto 3.4 x10*3/uL (2.0-8.3); Neutrophils Percent Auto 56.5 % (45-73); Platelet Count 219 X10*3/uL (160-400); Red Blood Count 5.08 X10*6/uL (4.60-5.80); Red Cell Distribution Width 12.7 % (11.0-16.0)
[2023-09-24 11:23] LABS: Estimated Average Glucose 169 mg/dL; Hemoglobin A1c % 7.5 % (<6.0)
[2023-09-24 11:58] LABS: Creatinine Urine 114.39 mg/dL; Microalbum/Creatinine Ratio Ur 24.4 ug/mg cr (<30)
[2023-09-24 12:13] LABS: Alanine Aminotransferase 13 U/L (0-40); Albumin Level 4.4 g/dL (3.5-5.0); Alkaline Phosphatase 85 U/L (39-117); Anion Gap 13 (12-20); Aspartate Amino Transferase 11 U/L (5-37); Bilirubin Total 1.1 mg/dL (0.0-1.0); Blood Urea Nitrogen 16 mg/dL (9-16); Calcium 9.4 mg/dL (8.4-10.2); Carbon Dioxide 26 mmol/L (22-29); Chloride 106 mmol/L (96-108); Cholesterol 154 mg/dL (<200); Estimated Glomerular Filt Rate > 60; Glucose Fasting 183 mg/dL (60-99); HDL Cholesterol 45 mg/dL (>40); LDL Cholesterol Calculated 91 mg/dL (<100); Potassium 3.4 mmol/L (3.3-5.1); Sodium 142 mmol/L (135-145); Triglycerides 90 mg/dL (<150)
== END 2023-09-24 06:42 | disposition home or self-care (01) ==
LOC: HO.HMGCLDS 06:41
PROVIDERS: PCP Internal Medicine Medical Oncology; Visit Provider Internal Medicine Medical Oncology
DX: E11.9 Type 2 diabetes mellitus without complications (principal); E78.5 Hyperlipidemia, unspecified; E66.9 Obesity, unspecified
CPT/HCPCS: 36415; 80053; 80061; 82043; 82570; 83036; 85025

== ENCOUNTER 2023-12-29 06:15 | Outpatient (REF) | payer MEDICARE, SELFPAY ==
[2023-12-29 11:03] LABS: Prostate Specific Antigen 1.57 ng/mL (<0.05-4.0)
== END 2023-12-29 06:16 | disposition home or self-care (01) ==
LOC: HO.HMGCLDS 06:15
PROVIDERS: PCP Internal Medicine Medical Oncology; Visit Provider Nurse Practitioner Family
DX: Z12.5 Encounter for screening for malignant neoplasm of prostate (principal); N40.1 Benign prostatic hyperplasia with lower urinary tract symptoms
CPT/HCPCS: 36415; 84153

== ENCOUNTER 2024-01-20 06:23 | Outpatient (REF) | payer MEDICARE, SELFPAY ==
[2024-01-20 10:24] LABS: MANUAL DIFF FLAG NO
[2024-01-20 10:32] LABS: Basophils Absolute Auto 0.1 X10*3/uL (0.0-0.2); Basophils Percent Auto 1.2 % (0-2); Eosinophils Absolute Auto 0.3 X10*3/uL (0.0-0.4); Eosinophils Percent Auto 4.5 % (0-4); Hematocrit 43.6 % (42.0-52.0); Hemoglobin 15.1 g/dl (14.0-18.0); Imm Gran Abs Auto 0.02 X10*3/uL (0.00-0.03); Imm Gran Pct Auto 0.3 % (0.0-0.4); Lymphocytes Absolute Auto 1.5 X10*3/uL (1.2-4.9); Lymphocytes Percent Auto 25.5 % (20-40); Mean Corpuscular HGB Conc 34.6 g/dl (31.0-36.0); Mean Corpuscular Hemoglobin 30.7 pg (27.0-33.0); Mean Corpuscular Volume 88.6 fL (80.0-98.0); Monocytes Absolute Auto 0.5 X10*3/uL (0.1-1.2); Monocytes Percent Auto 8.8 % (2-11); Neutrophils Absolute Auto 3.6 x10*3/uL (2.0-8.3); Neutrophils Percent Auto 59.7 % (45-73); Platelet Count 211 X10*3/uL (160-400); Red Blood Count 4.92 X10*6/uL (4.60-5.80); Red Cell Distribution Width 12.7 % (11.0-16.0); White Blood Count 6.1 X10*3/uL (4.8-10.8)
[2024-01-20 10:41] LABS: Alanine Aminotransferase 13 U/L (0-40); Albumin Level 4.2 g/dL (3.5-5.0); Alkaline Phosphatase 86 U/L (39-117); Anion Gap 13 (12-20); Aspartate Amino Transferase 12 U/L (5-37); Bilirubin Total 0.9 mg/dL (0.0-1.0); Blood Urea Nitrogen 10 mg/dL (9-16); Calcium 9.2 mg/dL (8.4-10.2); Carbon Dioxide 26 mmol/L (22-29); Chloride 102 mmol/L (96-108); Cholesterol 148 mg/dL (<200); Estimated Glomerular Filt Rate > 60; Glucose Fasting 227 mg/dL (60-99); HDL Cholesterol 46 mg/dL (>40); LDL Cholesterol Calculated 81 mg/dL (<100); Potassium 3.4 mmol/L (3.3-5.1); Sodium 138 mmol/L (135-145); Total Protein 6.7 g/dL (6.5-8.0); Triglycerides 106 mg/dL (<150)
[2024-01-20 10:43] LABS: Estimated Average Glucose 197 mg/dL; Hemoglobin A1c % 8.5 % (<6.0)
[2024-01-20 11:12] LABS: Creatinine Urine 50.68 mg/dL; Microalbum/Creatinine Ratio Ur 25.6 ug/mg cr (<30)
== END 2024-01-20 06:24 | disposition home or self-care (01) ==
LOC: HO.HMGCLDS 06:23
PROVIDERS: PCP Internal Medicine Medical Oncology; Visit Provider Internal Medicine Medical Oncology
DX: Z00.00 Encounter for general adult medical examination without abnormal findings (principal); E11.9 Type 2 diabetes mellitus without complications; E78.5 Hyperlipidemia, unspecified; N40.1 Benign prostatic hyperplasia with lower urinary tract symptoms; E66.9 Obesity, unspecified; Z12.5 Encounter for screening for malignant neoplasm of prostate
CPT/HCPCS: 36415; 80053; 80061; 82043; 82570; 83036; 84153; 85025

== ENCOUNTER 2024-04-27 06:27 | Outpatient (REF) | payer MEDICARE, SELFPAY ==
[2024-04-27 10:12] LABS: MANUAL DIFF FLAG NO
[2024-04-27 10:21] LABS: Basophils Absolute Auto 0.1 X10*3/uL (0.0-0.2); Basophils Percent Auto 1.2 % (0-2); Eosinophils Absolute Auto 0.5 X10*3/uL (0.0-0.4); Eosinophils Percent Auto 8.6 % (0-4); Hemoglobin 14.4 g/dl (14.0-18.0); Imm Gran Abs Auto 0.01 X10*3/uL (0.00-0.03); Imm Gran Pct Auto 0.2 % (0.0-0.4); Lymphocytes Absolute Auto 1.6 X10*3/uL (1.2-4.9); Lymphocytes Percent Auto 29.9 % (20-40); Mean Corpuscular HGB Conc 35.1 g/dl (31.0-36.0); Mean Corpuscular Hemoglobin 31.1 pg (27.0-33.0); Mean Corpuscular Volume 88.6 fL (80.0-98.0); Mean Platelet Volume 10.7 fL (9.4-12.4); Monocytes Absolute Auto 0.5 X10*3/uL (0.1-1.2); Neutrophils Absolute Auto 2.7 x10*3/uL (2.0-8.3); Neutrophils Percent Auto 51.1 % (45-73); Platelet Count 212 X10*3/uL (160-400); Red Blood Count 4.63 X10*6/uL (4.60-5.80); Red Cell Distribution Width 12.4 % (11.0-16.0); White Blood Count 5.2 X10*3/uL (4.8-10.8)
[2024-04-27 10:56] LABS: Estimated Average Glucose 166 mg/dL; Hemoglobin A1C 208.9826 umol/L; Hemoglobin A1c % 7.4 % (<6.0); Total Hemoglobin (HGBA1C) 3667.3716 umol/L
[2024-04-27 10:57] LABS: Alanine Aminotransferase 13 U/L (0-40); Albumin Level 4.3 g/dL (3.5-5.0); Alkaline Phosphatase 74 U/L (39-117); Anion Gap 11 (12-20); Aspartate Amino Transferase 14 U/L (5-37); Bilirubin Total 1.2 mg/dL (0.0-1.0); Blood Urea Nitrogen 15 mg/dL (9-16); Calcium 9.1 mg/dL (8.4-10.2); Carbon Dioxide 26 mmol/L (22-29); Chloride 108 mmol/L (96-108); Cholesterol 134 mg/dL (<200); Estimated Glomerular Filt Rate > 60; Glucose Fasting 178 mg/dL (60-99); HDL Cholesterol 46 mg/dL (>40); LDL Cholesterol Calculated 76 mg/dL (<100); Potassium 3.4 mmol/L (3.3-5.1); Sodium 142 mmol/L (135-145); Total Protein 6.5 g/dL (6.5-8.0); Triglycerides 61 mg/dL (<150)
[2024-04-27 11:17] LABS: Creatinine Urine 149.09 mg/dL; Microalbum/Creatinine Ratio Ur 18.7 ug/mg cr (<30)
== END 2024-04-27 06:28 | disposition home or self-care (01) ==
LOC: HO.HMGCLDS 06:27
PROVIDERS: Visit Provider Internal Medicine Medical Oncology
DX: H18.892 Other specified disorders of cornea, left eye (principal); E11.9 Type 2 diabetes mellitus without complications; E78.5 Hyperlipidemia, unspecified; E66.9 Obesity, unspecified
CPT/HCPCS: 36415; 80053; 80061; 82043; 82570; 83036; 85025; 99212

== ENCOUNTER 2024-04-27 14:00 | Outpatient (AMB) | payer MEDICARE, SELFPAY ==
--- NOTE | 2024-04-27 15:16 | AM.OFFWIN_ITS ---
Intake Vital Signs 04/27/24 15:18 Height 5 ft 5 in Weight 141 lb BMI 23.5 BP 180/100 H Blood Pressure Location Lt brachial Position Sitting Pulse 55 Pulse Oximetry (%) 97 Oxygen Delivery Method Room Air Intake Visit Reasons: EP ? something inside the left eye Intake Note: PAtient here for something in his left eye that he noticed this morning and is having blurred vision Patient Tobacco Use Status: Never used Tobacco Allergies No Known Allergies Allergy (Unverified 04/27/24 15:19) Do you need a note to return to daycare/school/sports/work: No HPI HPI Comments History of Present Illness Details This is a 68-year-old male who presented to the walk-in clinic complaining of irritation of his left eye. Patient states he feels as though there is a foreign body in his left eye. His symptoms started this morning. He reports some blurry vision due to eye watering and irritation but otherwise denies any visual disturbances. He denies any eye pain. Patient otherwise denies any acute or active complaints. [facility] Medical History BPH (benign prostatic hyperplasia) Diabetes mellitus Elevated cholesterol HTN (hypertension) Renal calculi Surgical History History of bilateral inguinal hernia repair Social History Alcohol intake: current Alcohol intake frequency: a few times a month Patient Tobacco Use Status: Never used Tobacco Review of Systems Const All systems reviewed & are unremarkable except as noted in HPI and below Reports no additional complaints Eyes Reports no additional complaints ENT Reports no additional complaints Card Reports no additional complaints Resp Reports no additional complaints GI Reports no additional complaints Reports no additional complaints Musc Reports no additional complaints Skin/Breast Reports system reviewed and no additional complaints, except as documented Neuro Reports no additional complaints Psych Reports no additional complaints Endo Reports no additional complaints Kem/Lymph Reports no additional complaints Aller/Immun Reports no additional complaints Physical Exam Vital Signs: Last Vital Signs Pulse 55 04/27/24 15:18 BP 180/100 H 04/27/24 15:18 Pulse Ox 97 04/27/24 15:18 Oxygen Delivery Method Room Air 04/27/24 15:18 BMI result Body Mass Index 23.5 Const Other: Vital signs reviewed. Constitutional: Non-toxic appearing. No acute distress. Well-developed and well-nourished. HEENT: Normocephalic and atraumatic. Mild left conjunctival injection. The left eye was evaluated using fluorescein and Wood's lamp. There was no evidence of foreign body or obvious corneal abrasion. He did have some purulent discharge of the left eye. For/EOMI. Skin: Warm and dry. No rashes or lesions noted. Neck: Full and painless range of motion. No cervical lymphadenopathy. Cardio: Regular rate. No lower extremity edema. No JVD. Pulmonary: No respiratory distress. No accessory muscle usage. Gastrointestinal: Soft, nontender, and nondistended in all 4 quadrants. Musculoskeletal: Normal range of motion in joints throughout the body. No deformity or other signs of injury. Neuro: Alert and oriented x4. Cranial nerves 2-12 grossly intact. No focal deficits appreciated. Psych: Normal mood and affect. Assessment & Plan Assessment & Plan (1) Corneal irritation of left eye: Code(s): H18.892 - Other specified disorders of cornea, left eye Plan: This is a 68-year-old male who presented to the walk-in clinic complaining of left eye irritation. He has a foreign body sensation in his left eye. His left eye was evaluated using fluorescein and Wood's lamp without evidence of foreign body or corneal abrasion although he did have some purulent drainage. Patient possibly had a foreign body that was dislodged and caused some corneal irritation. Recommended symptomatic management including warm/cool compresses. Patient was given a prescription for erythromycin ophthalmic ointment 4 times daily given evidence of purulent drainage. Patient was advised to follow-up here if he were to develop persistent or worsening symptoms. Patient verbalizes understanding and he is in agreement with the plan. Medications: New erythromycin 0.5 inches ophthalmic (eye) QID 3.5 grams 0RF Coding Level of Care Code Est Pt Level 3 (18423) Diagnoses Corneal irritation of left eye H18.892
[2024-04-27 15:18] VITALS: BP 180/100; PULSE 55; O2SAT 97; BMI 23.5
== END 2024-04-27 16:08 | disposition home or self-care (01) ==
PROVIDERS: PCP Internal Medicine Medical Oncology; Visit Provider Physician Assistant Medical
DX: H18.892 Other specified disorders of cornea, left eye (principal)

== ENCOUNTER 2024-09-25 06:13 | Outpatient (REF) | payer MEDICARE, SELFPAY ==
--- OUTSIDE RECORDS SUMMARY | 2024-09-25 06:16 | XMS_ITS | Patient Health Record ---
Author Organization [facility] Address [address] [place] [id number] Care Team Providers Care Automation Consultant Name Role Phone Ravinder Ortiz MD Primary Care Provider Unavailab Ravinder Agustin Unavailable [phone] Reason For Referral No Information Medications Medication SIG (Take, Route, Frequency, Duration) Notes Start Date End Date Status oxyBUTYnin Chloride ER 10 MG TAKE 1 TABLET BY MOUTH EVERY MORNING Oral for 90 Active Sildenafil Citrate 50 MG TAKE 1 TABLET B Y MOUTH EVERY DAY NEEDED *NOT COVERED* Oral for 6 Active Vitamin D 25 MCG (1000 UT) 1 tablet Oral ly Once a day for 30 day(s) Active Tamsulosin HCl 0.4 MG TAKE 1 CAPSULE BY MOUTH EVERYDAY AT BEDTIME Oral for 90 Active Atenolol 100 MG TAKE 1 TABLET BY BRAD TH EVERY DAY Oral for 90 Active Lisinopril 40 MG TAKE 1 TABLET BY BRAD TH EVERY DAY Oral for 90 Active metFORMIN HCl 500 MG TAKE 1 TABLET BY MO UTH TWICE A DAY WITH A MEAL Oral for 90 Active Simvastatin 20 MG TAKE 1 TABLET BY BRAD TH IN THE EVENING Oral for 90 Active NIFEdipine ER 30 MG TAKE 1 TABLET ON AN EMPTY STOMACH ONCE A DAY ORALLY 90 Oral for 90 Active Immunizations Vaccine Route Administration Date Status Comme nts Influenza Unknown 04/10/2020 Refused Social History Tobacco Use: Social History Observation Description Date Details (start date - stop date) Never Smoker NA - NA Tobacco Use/Smoking Question Answer Notes Patient is a nonsmoker Alcohol Screen Question Answer Notes Did you have a drink contain ing alcohol in the past year? Yes How often did you have a dri nk containing alcohol in the past year? 2 to 3 times a week (3 points) How many drinks did you have on a typical day when you were drinking in the past year? 1 or 2 drinks (0 point) Points 3 Interpretation Negative Section Notes: Nosmoker; occ alcohol Problems Problem Type SNOMED Code ICD Code Onset Dates Problem Status W/U Status Risk Notes Problem [id number] Encounter for screening for malignant neoplasm of colon (Z12.11) Active confirmed Problem [id number] Preprocedural examination (Z01.818) Active confirmed Plan Of Treatment Future Test Test Name Order Date COLONOSCOPY 04/10/2020 Insurance Providers Payer Name Payer Address Payer Phone Subscriber Number Group Number Insured Name Patient Relationship to Insured Coverage Start Date Coverage End Date [facility] [address] [place] [address] [id number] YAMILEX IBARRA Self - patient is the insured Medicare of [place] [employer] [address] [place] [address] [id number] YAMILEX IBARRA Self - patient is the insured Medical (General) History Medical History History ICD Code Hypertension Kidney stones NIDDM BPH Hyperlipidemia Denies MS,CVA,Lung disease,renal disease Surgical History Surgery Date(Month/Year) Bilateral inguinal hernia repair
--- OUTSIDE RECORDS SUMMARY | 2024-09-25 06:17 | XMS_ITS ---
Author Organization Ravinder Ortiz III, MD Address [address] [place] [address] [place] [address] Care Team Providers Care Telemarketing Fundraiser Name Role Phone Ravinder Ortiz Primary Care Provider Allergies Allergen (clinical drug [...] Date Provider Diagnosis Ravinder Ortiz III, MD [address] [place] [address] [place] [address] 05/03/2024 Ravinder Ortiz Type 2 diabetes jordy [...] Appt Details Follow Up: As Scheduled, [facility], Reason: OV, Regular check-up Provider Name:Ravinder Ortiz, 10/01/2024 10:00:00 AM, [address] [place] [address] [address] [address], [place], [phone], Progress Notes * YAMILEX IBARRADOB: 5 (68 yo M)Acc No.[id number]:05/03/2024 Progress Notes Patient:?EVGENY IBARRAES Provider:?Ravinder Ortiz MD :1955???Age:68 Y???Sex:Male Genaro e:05/03/2024 Address:[address] [place] [address], [place] [phone] Subjective: * Chief Complaints: * ???DiabetesHyperlipidemiaHyp ertensionObesity * HPI: ???COVID-19 Screening:?Questions?Have you experienced fever, chills, cough, sore throat, shortness of breath, difficulty breathing, muscle aches, loss of taste or smell??No ?Have you been exposed to the virus within the last 10 days??No ?Have you travelled internationally in the last 10 days??No ?Have you been exposed to COVID-19 in the past??Yes ???:? The 68-year-old male patient came in for [...] normal. Blood Sugar Level is 178. * ROS:?General/Constitutional:?pain?only normal aches and pains.?Chills?denies.?Fatigue?admits.?Fever?denies.?ENT:?Decreased hearing?denies.?Respiratory:?Cough?denies.?Cardiovascular:?Chest pain with exertion?denies.?Dyspnea on exertion?denies.?Shortness of breath?denies.?Gastrointestinal:?Constipation?occasional.?Decreased appetite?denies.?Diarrhea?denies.?Heartburn?denies.?Nausea?denies.?Rectal bleeding?denies.?Vomiting?denies.?Hematology:?bruising?denies.?petechiae?denies.?Swollen glands?none have been noted.?Genitourinary:?Frequent urination?once a night.?Musculoskeletal:?Muscle aches?denies.?Painful joints?denies.?Sciatica?denies.?Weakness?denies.?Skin:?Itching?denies.?Rash?denies.?Skin lesion(s)?denies.?Neurologic:?Difficulty speaking?denies.?Dizziness?denies.?Headache?denies.?Low back pain?denies.?Psychiatric:?Depressed mood?denies.? * Medical History:? * Surgical History:?appendecto my 1976hernia removal 1999colonoscopy,, [facility] 05/2020No history * Hospitalization/Major Diagno stic Procedure:?No history * Family History:?Father: dece ased, diagnosed with HTN.?Mother: alive.?2 brother(s) , 3 sister(s) - healthy. 1 son(s) , 1 daughter(s) - healthy. .? His father had chronic lung disease and hypertension. His mother is living with macular degeneration. One daughter has arthritis. He has 2 brothers and 2 sisters. He is not aware of any inherited cancer family syndrome. He is not aware of any history of substance abuse or mental illness in the family. * Social History:?Tobacco Use:?Tobacco Use/Smoking?Patient is a?nonsmoker ?Additional Findings: Tobacco Non-User?Aggressive non-smoker ???He was born in [place] and raised at [facility] near [facility]. He has been to [place] for 44 years. 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 * Medications:?TakingNIFEdipin e ER 30 MG Tablet Extended Release 24 [...] reviewed and reconciled with the patient * Allergies:?No Known Drug All ergyno[Allergies Verified] Objective: * Vitals:?Ht: 65, Wt:193, BMI: 32.11, BP:139/75, HR:62, Temp:97.3, Wt-k.54. * ???Past Orders: Lab:[facility] * Collection Date 04/27/2024 01/20/2024 09/24/2023 Collection Time 06:33 AM 06:41 AM 07:09 AM Order Date 04/27/2024 01/20/2024 09/24/2023 Sodium 142 (Ref Range: 135-145 mmol/L) 138 (Ref Range: 135-145 mmol/L) 142 (Ref Range: 135-145 mmol/L) Bilirubin Total 1.2?H (Ref Range: 0.0-1.0 mg/dL) 0.9 (Ref Range: 0.0-1.0 mg/dL) 1.1?H (Ref Range: 0.0-1.0 mg/dL) Aspartate Amino Transferase [...] 26 (Ref Range: 22-29 mmol/L) Anion Gap 11?L (Ref Range: 12-20) 13 (Ref Range: 12-20) 13 (Ref Range: 12-20) Blood Urea Nitrogen 15 (Ref Range: 9-16 mg/dL) 10 (Ref Range: 9-16 mg/dL) 16 (Ref Range: 9-16 mg/dL) Creatinine 0.87 (Ref Range: 0.5-1.4 mg/dL) 0.86 (Ref Range: 0.5-1.4 mg/dL) 0.90 (Ref Range: 0.5-1.4 mg/dL) Estimated Glomerular Filt Rate > 60 > 60 > 60 Glucose Fasting 178?H (Ref Range: 60-99 mg/dL) 227?H (Ref Range: 60-99 mg/dL) 183?H (Ref Range: 60-99 mg/dL) Calcium 9.1 (Ref [...] Date 04/27/2024 01/20/2024 09/24/2023 Hemoglobin A1c % 7.4?H (Ref Range: <6.0 %) 8.5?H (Ref Range: <6.0 %) 7.5?H (Ref Range: <6.0 %) Estimated Average Glucose [...] g/dl) 15.0 (Ref Range: 14.0-18.0 g/dl) Hematocrit 41.0?L (Ref Range: 42.0-52.0 %) 43.6 (Ref Range: [...] (Ref Range: 2-11 %) Eosinophils Percent Auto 8.6?H (Ref Range: 0-4 %) 4.5?H (Ref Range: 0-4 %) 5.7?H (Ref Range: 0-4 %) Basophils Percent Auto [...] (Ref Range: 0.1-1.2 X10*3/uL) Eosinophils Absolute Auto 0.5?H (Ref Range: 0.0-0.4 X10*3/uL) 0.3 (Ref Range: 0.0-0.4 X10*3/uL) 0.3 (Ref Range: 0.0-0.4 X10*3/uL) Basophils Absolute Auto 0.1 (Ref Range: 0.0-0.2 X10*3/uL) 0.1 (Ref Range: 0.0-0.2 X10*3/uL) 0.1 (Ref Range: 0.0-0.2 X10*3/uL) NRBC Abs Auto 0.000 (Ref Range: 0.0-0.012 X10*3/uL) 0.000 (Ref Range: 0.0-0.012 X10*3/uL) 0.000 (Ref Range: 0.0-0.012 X10*3/uL) * Examination: ???General Examination: ?GENERAL APPEARANCE:?pleasant, well nourished, well developed, in no acute distress, calm and relaxed, obese, man.?HEAD:?atraumatic, normocephalic.?EYES:?eomi, perrla, anicteric, conjugate.?EARS:?normal.?NOSE:?septum intact.?ORAL CAVITY:?normal, unremarkable.?NECK/THYROID:?no jugular venous distention, no carotid bruit, thyroid normal.?LYMPH NODES:?no enlarged lymph nodes,spleen normal.?SKIN:?no suspicious lesions, anicteric.?HEART:?no clicks, gallops, murmurs, or rubs, regular rhythm, S1, S2 normal, no s3, or vascular bruits.?LUNGS:?clear to auscultation .?BREASTS:??no masses palpable bilaterally.?ABDOMEN:?bowel sounds normal, no ascites, no organomegaly, no mass, centripital obesity.?RECTAL EXAM:?not examined.?MUSCULOSKELETAL:?extremities unremarkable, no clubbing, cyanosis or edema.?PERIPHERAL PULSES:?normal.?NEUROLOGIC:?alert and oriented, cranial nerves 2-12 grossly intact, deep tendon reflexes 2+ symmetrical, motor strength normal upper and lower extremities, sensory exam intact.?PSYCH:?alert, oriented.? Assessment: * Assessment: 1.?Type 2 diabetes mellitus without complication, without long-term current use of insulin - E11.9 (Primary)???Notes :His hemoglobin A1c has decreased to 7.4.He was continued on the metformin dose of one thousand milligrams twice a day.???2.?Hyperlipidemia, unspecified hyperlipidemia type - E78.5???Notes :His lipids are currently stable.? No change in his medication was made.? I have encouraged aggrressive weight loss and adherence to a diabetic weight reduction diet.???3.?Obesity (BMI 30-39.9) - E66.9???Notes :His body mass index is 32 and his weight has been stable.? We reviewed his weight loss strategy in detail today.???4.?Benign prostatic hyperplasia with lower urinary tract symptoms - N40.1???Notes :He rises from sleep on the average of once a night to urinate.? We discussed lifestyle modifications he could make reduce this.??? Plan: * Treatment: 2.?Hyperlipidemia, unspecifi ed hyperlipidemia type?LAB: PROFILE, FASTING (COMPREHENSIVE METABOLIC) ?LAB: PSA, TOTAL ?LAB: CBC WITH AUTO DIFF ?LAB: Lipid Panel ?LAB: Microalbumin, Random ?LAB: Hemoglobin A1c 3.?Obesity (BMI 30-39.9)?LAB: PROFILE, FASTING (COMPREHENSIVE METABOLIC) ?LAB: PSA, TOTAL ?LAB: CBC WITH AUTO DIFF ?LAB: Lipid Panel ?LAB: Microalbumin, Random ?LAB: Hemoglobin A1c 4.?Benign prostatic hyperpla margo with lower urinary tract symptoms?LAB: PROFILE, FASTING (COMPREHENSIVE METABOLIC) ?LAB: PSA, TOTAL ?LAB: CBC WITH AUTO DIFF ?LAB: Lipid Panel ?LAB: Microalbumin, Random ?LAB: Hemoglobin A1c 5.?Others? Continue NIFEdipine ER Tablet Extended Release 24 Hour, 30 MG, TAKE 1 TABLET BY MOUTH EVERY DAY ON EMPTY STOMACH;?Continue Simvastatin Tablet, 20 MG, TAKE 1 TABLET BY MOUTH EVERY DAY IN THE EVENING;?Continue Paxlovid (300/100) Tablet Therapy Pack, 20 x 150 MG & 10 x 100MG, as directed, Orally, twice a day;?Continue Atenolol Tablet, 100 MG, TAKE 1 TABLET BY MOUTH EVERY DAY;?Continue Sildenafil Citrate Tablet, 50 MG, TAKE 1 TABLET BY MOUTH EVERY DAY NEEDED;?Continue metFORMIN HCl Tablet, 500 MG, TAKE 1 TABLET BY MOUTH TWICE A DAY WITH MEALS FOR 90 DAYS;?Continue Lisinopril Tablet, 40 MG, TAKE 1 TABLET BY MOUTH EVERY DAY.?? * Procedure Codes:? * Preventive Medicine:? ??Counseling:?Care goal follow-up plan:?Counseling for abnormal BMI given?Yes ?Above Normal BMI Follow-up?Dietary management education, guidance, and counseling, Dietary needs education, Exercise promotion: strength training, Exercise promotion: stretching, Feeding regime, Giving encouragement to exercise, Lifestyle education regarding diet, Nutrition / feeding management, Nutrition therapy, Prescribed activity/exercise education, Prescribed diet education, Prescribed dietary intake, Special diet education, Weight monitoring , Intervention, Order not done: Medical or Other reason not done ??DM Care Plan:?Patient Lifestyle Goals?Patient wants to be able to manage diabetes without too much effort.?Treatment Goals?Blood Sugars less than < 115.?Barriers?no barriers.?Self-Managment Goals?Work on weight loss, with a goal of losing 1 lb per week.? * Follow Up:?As Scheduled, [facility] (Reason: OV, Regular check-up) * Images: * Sign off status: Completed true * Provider:?Ravinder Ortiz MD Date:?04/17 Generated for Heriberto gill/Candida/Lanette on:?09/25/2024 06:16 AM EDT History and Physical Notes * HPI (History of Present Illness) Category Sub-Category Detail Notes COVID-19 Screening Questions Have you had any new onset fever, chills, cough, congestion, sore throat, shortness of breath, muscle aches?: No Have you been exposed to the virus with n the last 10 days?: No Have you travelled internationally in [facility] last 10 days?: No Have you [...]
--- OUTSIDE RECORDS SUMMARY | 2024-09-25 06:17 | XMS_ITS ---
Author Organization Ravinder Ortiz III, MD Address [address] [place] [address] [place] [address] Care Team Providers Care Practicing Md Anesthesiologist Name Role Phone Ravinder Ortiz Primary Care [...] 500 MG TAKE 1 TABLET BY MO [facility] TWICE A DAY WITH MEALS FOR 90 [...] Date Provider Diagnosis Ravinder Ortiz III, MD [address] [place] [address] [place] [address] 01/27/2024 Ravinder Ortiz Type 2 diabetes jordy [...] Up: 3 Months, Reason: OV Provider Name:Ravinder Ortiz, 10/01/2024 10:00:00 AM, [address] [place] [address] [address] [address], [place], [phone], Progress Notes * YAMILEX IBARRADOB: 5 (68 yo M)Acc No.[id number]:01/27/2024 Progress Notes Patient:?YAMILEX IBARRA Provider:?Ravinder Ortiz MD :1955???Age:68 Y???Sex:Male Genaro e:01/27/2024 Address:[address] [place] [address], [place], [id number] Subjective: * Chief Complaints: * ???DiabetesHyperlipidemiaHyp ertensionObesityBenign prostatic hypertrophyDJD L5-S1 * HPI: ???COVID-19 Screening:? He returns for management of his metabolic [...] work was reviewed with him in detail. ?Questions?Have you experienced fever, chills, cough, sore throat, shortness of breath, difficulty breathing, muscle aches, loss of taste or smell??No ?Have you been exposed to the virus within the last 10 days??No ?Have you travelled internationally in the last 10 days??No ?Have you been exposed to COVID-19 in the past??Yes * ROS:?General/Constitutional:?pain?only normal aches and pains.?Chills?denies.?Fatigue?admits.?Fever?denies.?ENT:?Decreased hearing?mild.?Respiratory:?Cough?denies.?Cardiovascular:?Chest pain with exertion?denies.?Dyspnea on exertion?denies.?Shortness of breath?denies.?Gastrointestinal:?Constipation?occasional.?Decreased appetite?denies.?Diarrhea?denies.?Heartburn?denies.?Nausea?denies.?Rectal bleeding?denies.?Vomiting?denies.?Hematology:?bruising?denies.?petechiae?denies.?Swollen glands?none have been noted.?Genitourinary:?Frequent urination?twice a night.?Musculoskeletal:?Muscle aches?denies.?Painful joints?denies.?Sciatica?denies.?Weakness?denies.?Skin:?Itching?denies.?Rash?denies.?Skin lesion(s)?denies.?Neurologic:?Difficulty speaking?denies.?Dizziness?denies.?Headache?denies.?Low back pain?denies.?Psychiatric:?Depressed mood?denies.? * Medical History:? * Surgical History:?appendecto my 1976hernia removal 1999colonoscopy,, [facility] 05/2020 * Hospitalization/Major Diagno stic Procedure:?Denies Past Hospitalization * Family History:?Father: dece ased, diagnosed with [...] Tobacco Non-User?Aggressive non-smoker ???He was born in [place] and raised at [facility] near [facility]. He has been to [place] for 44 years. 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 * Medications:?TakingSimvastat in 20 MG Tablet TAKE 1 TABLET BY [...] Objective: * Vitals:?Ht: 65, Wt:193, BMI: 32.11, BP:140/79, HR:62, Temp:98.2, Wt-k.54. * ???Past Orders: Lab:Prostate Specific Antige n * Order [...] 44 (Ref Range: >40 mg/dL) * Lab:[facility] [place] * Order Date 01/20/2024 09/24/2023 06/06/2023 Sodium 138 (Ref Range: 135-145 mmol/L) 142 (Ref Range: 135-145 mmol/L) 140 (Ref Range: 135-145 mmol/L) Bilirubin Total 0.9 (Ref Range: 0.0-1.0 mg/dL) 1.1?H (Ref Range: 0.0-1.0 mg/dL) 0.7 (Ref Range: [...] (Ref Range: 12-20) 13 (Ref Range: 12-20) 11?L (Ref Range: 12-20) Blood Urea Nitrogen 10 (Ref Range: 9-16 mg/dL) 16 (Ref Range: 9-16 mg/dL) 17?H (Ref Range: 9-16 mg/dL) Creatinine 0.86 (Ref Range: 0.5-1.4 mg/dL) 0.90 (Ref Range: 0.5-1.4 mg/dL) 0.81 (Ref Range: 0.5-1.4 mg/dL) Estimated Glomerular Filt Rate > 60 > 60 > 60 Glucose Fasting 227?H (Ref Range: 60-99 mg/dL) 183?H (Ref Range: 60-99 mg/dL) 201?H (Ref Range: 60-99 mg/dL) Calcium 9.2 (Ref [...] (Ref Range: 2-11 %) Eosinophils Percent Auto 4.5?H (Ref Range: 0-4 %) 5.7?H (Ref Range: 0-4 %) 5.0?H (Ref Range: 0-4 %) Basophils Percent Auto [...] Date 01/20/2024 09/24/2023 06/06/2023 Hemoglobin A1c % 8.5?H (Ref Range: <6.0 %) 7.5?H (Ref Range: <6.0 %) 8.5?H (Ref Range: <6.0 %) Estimated Average Glucose 197 (Ref Range: mg/dL) 169 (Ref Range: mg/dL) 197 (Ref Range: mg/dL) * Examination: ???General Examination: ?GENERAL APPEARANCE:?pleasant, well nourished, well developed, in no acute distress, calm and relaxed , obese , man.?HEAD:?atraumatic, normocephalic.?EYES:?eomi, perrla, anicteric, conjugate.?EARS:?normal.?NOSE:?septum intact.?ORAL CAVITY:?normal, unremarkable.?NECK/THYROID:?no jugular venous distention, no carotid bruit, thyroid normal.?LYMPH NODES:?no enlarged lymph nodes,spleen normal.?SKIN:?no suspicious lesions, anicteric.?HEART:?no clicks, gallops, murmurs, or rubs, regular rhythm, S1, S2 normal, no s3, or vascular bruits.?LUNGS:?clear to auscultation .?BREASTS:??no masses palpable bilaterally.?ABDOMEN:?bowel sounds normal, no ascites, no organomegaly, no mass , centripital obesity.?RECTAL EXAM:?not examined.?MUSCULOSKELETAL:?extremities unremarkable, no clubbing, [...] dose to one thousand milligrams twice a day.?2.?Hyperlipidemia, unspecified hyperlipidemia type - E78.5, His lipids are currently stable and no change in his medication was made.?3.?Obesity (BMI 30-39.9) - E66.9, We have reviewed his weight loss strategy and is diabetic diet. We made a plan to lose weight at a rate of one half of a pound per week.?4.?Essential hypertension - I10, His blood pressure is slightly high at 140/80. Will be rechecked again in the near future. We discussed diet and nutrition and the elements of sodium restriction and weight loss in great detail today. 5.?Benign prostatic hyperplasia with lower urinary tract symptoms - N40.1, He is rising from sleep once or twice a night to urinate. We have discussed lifestyle modification as a way to reduce this.? Plan: * Treatment: 2.?Hyperlipidemia, unspecifi ed hyperlipidemia type?LAB: PROFILE, FASTING (COMPREHENSIVE METABOLIC) ?LAB: CBC WITH AUTO DIFF ?LAB: Lipid Panel ?LAB: Microalbumin, Random ?LAB: Hemoglobin A1c 3.?Obesity (BMI 30-39.9)?LAB: PROFILE, FASTING (COMPREHENSIVE METABOLIC) ?LAB: CBC WITH AUTO DIFF ?LAB: Lipid Panel ?LAB: Microalbumin, Random ?LAB: Hemoglobin A1c 4.?Others? Continue NIFEdipine ER Tablet Extended Release 24 [...] much effort.?Treatment Goals?Blood Sugars less than < 115, HbA1C < 7.0.?Barriers?no barriers.?Self-Managment Goals?Work on weight loss, with a goal of losing 1 lb per week, Increase exercise to 3 times a week for 30 mins.? * Follow Up:?3 Months (Reason: OV) * Images: * Sign off status: Completed true * Provider:?Ravinder Ortiz MD Date:?01/15 Generated for Heriberto gill/Candida/eTransmitting on:?09/25/2024 06:16 AM EDT History and Physical Notes * HPI (History of Present Illness) Category Sub-Category Detail Notes COVID-19 Screening Questions Have you had any new onset fever, chills, cough, congestion, sore throat, shortness of breath, muscle aches?: No Have you been exposed to the virus withi n the last 10 days?: No Have you travelled internationally in last 10 days?: No Have you been [...]
--- OUTSIDE RECORDS SUMMARY | 2024-09-25 06:17 | XMS_ITS | Patient Health Record ---
Author Organization Ravinder Ortiz III, MD Address [address] [place] [address] Care Team Providers Care Cupola Repairer Name Role Phone Ravinder Ortiz Primary Care Provider [phone] Allergies Allergen (clinical drug ingredient) Drug/Non Drug Allergy documented on EMR Reaction Allergy Type Onset Date Status No Known Drug Allergy Unknown Drug Allergy Active Results Component Value Reference Range Notes URINE DIP STICK Reviewed date:09/26/2023 02:28:31 PM Interpretation: Performing Lab: Notes/Report: SG 1.020 1.005 - 1.025 pH 6.0 5.0 - 9.0 WAN 70 Negative - NIT Negative Negative - PRO 15 Negative - Trace GLU Negative Negative - KET Negative Negative - UBG 0.2 0.1 - 1.8 JENNIFER Negative 0.2 - 1.3 BLD 50 Negative - Prostate Specific Antigen Reviewed date:12/31/2023 05:39:08 PM Interpretation: Performing Lab:[facility], [address] [place] [phone] Notes/Report: Prostate Specific Antigen 1.57 <0.05-4.0 ng/mL PSA methodology: [place] Alinity i Chemiluminescent Microparticle Immunoassay (CMIA) Complete Blood Count Auto Di ff Reviewed date:01/21/2024 06:42:08 AM Interpretation: Performing Lab:[facility], [address] [place] [phone] Notes/Report: White Blood Count 6.1 4.8-10.8 X10*3/uL Red Blood Count 4.92 4.60-5.80 X10*6/uL Hemoglobin 15.1 14.0-18.0 g/dl Hematocrit 43.6 42.0-52.0 % Mean Corpuscular Volume 88.6 80.0-98.0 fL Mean Corpuscular Hemoglobin 30.7 27.0-33.0 pg Mean Corpuscular HGB Conc 34.6 31.0-36.0 g/dl Red Cell Distribution Width 12.7 11.0-16.0 % Platelet Count 211 160-400 X10*3/uL Mean Platelet Volume 11.0 9.4-12.4 fL Neutrophils Percent Auto 59.7 45-73 % Imm Gran Pct Auto 0.3 0.0-0.4 % Lymphocytes Percent Auto 25.5 20-40 % Monocytes Percent Auto 8.8 2-11 % Eosinophils Percent Auto 4.5 0-4 % Basophils Percent Auto 1.2 0-2 % NRBC Pct Auto 0.0 0.0-0.2 /100WBC Neutrophils Absolute Auto 3.6 2.0-8.3 x10*3/u L Imm Gran Abs Auto 0.02 0.00-0.03 X10*3/uL Lymphocytes Absolute Auto 1.5 1.2-4.9 X10*3/u L Monocytes Absolute Auto 0.5 0.1-1.2 X10*3/uL Eosinophils Absolute Auto 0.3 0.0-0.4 X10*3/u L Basophils Absolute Auto 0.1 0.0-0.2 X10*3/uL NRBC Abs Auto 0.000 0.0-0.012 X10*3/uL Comprehensive Tram. Panel Fa st Reviewed date:01/21/2024 06:42:08 AM Interpretation: Performing Lab:[facility], [address] [place] [phone] Notes/Report: Sodium 138 135-145 mmol/L Potassium 3.4 3.3-5.1 mmol/L Chloride 102 96-108 mmol/L Carbon Dioxide 26 22-29 mmol/L Anion Gap 13 12-20 Blood Urea Nitrogen 10 9-16 mg/dL Creatinine 0.86 0.5-1.4 mg/dL Estimated Glomerular Filt Rate > 60 NOTE: For -Moroccan individuals, multiply the result by 1.210. Chronic Kidney Disease: Estimated GFR < 60 mL/min/1.73m2 Severe Kidney Disease: Estimated GFR < 15 mL/min/1.73m2 Glucose Fasting 227 60-99 mg/dL A fasting glucose of 126 mg/dl or greater on more than one occasion is considered diagnostic of diabetes. Calcium 9.2 8.4-10.2 mg/dL Bilirubin Total 0.9 0.0-1.0 mg/dL Aspartate Amino Transferase 12 5-37 U/L Alanine Aminotransferase 13 0-40 U/L Total Protein 6.7 6.5-8.0 g/dL Albumin Level 4.2 3.5-5.0 g/dL Alkaline Phosphatase 86 39-117 U/L Lipid Panel Reviewed date:01/21/2024 06:42:08 AM Interpretation: Performing Lab:[address] [phone] Notes/Report: Triglycerides 106 <150 mg/dL Desirable Triglyceride: less than 150 mg/dL Borderline High Triglyceride 150-199 mg/dL High Triglyceride: 200-499 mg/dL Very High Triglyceride: greater than or equal to 5OO mg/dL Cholesterol 148 <200 mg/dL Desirable Cholesterol: less than 200 mg/dL Borderline High Cholesterol: 200-239 mg/dL High Cholesterol: greater than 239 mg/dL LDL Cholesterol Calculated 81 <100 mg/dL Desirable LDL: less than 100 mg/dL Near Optimal/Above Optimal LDL: 110-129 mg/dL Borderline High LDL: 130-159 mg/dL High LDL: 160-189 mg/dL Very High LDL: greater than or equal to 190 mg/dL HDL Cholesterol 46 >40 mg/dL Desirable HDL: greater than 40 mg/dL Note: This HDL assay may give artificially low results in patients with liver disease. Prostate Specific Antigen Reviewed date:01/21/2024 06:42:08 AM Interpretation: Performing Lab:[address] [phone] Notes/Report: Prostate Specific Antigen 1.50 <0.05-4.0 ng/mL PSA methodology: [place] Alinity i Chemiluminescent Microparticle Immunoassay (CMIA) Microalbumin, Random Reviewed date:01/21/2024 06:42:08 AM Interpretation: Performing Lab:[address] [place] [address] Notes/Report: Creatinine Urine 50.68 Microalbumin Urine 13.0 Microalbum/Creatinine Ratio Ur 25.6 <30 ug/mg cr Albumin/Creatinine Ratio Reference Ranges: Normal: < 30 ug/mg creatinine Microalbuminuria: 30 - 300 ug/mg creatinine Clinical Albuminuria: > 300 ug/mg creatinine Hemoglobin A1c Reviewed date:01/21/2024 06:42:08 AM Interpretation: Performing Lab:[address] [address] Notes/Report: Hemoglobin A1c % 8.5 <6.0 % Hemoglobin A1C Reference Range Adults: 4.8 - 6.0 % Non diabetic: < 6.0 % Goal: < 7.0 % Additional Action Suggested: > 8.0 % Note: Hemoglobin A1c results are invalid for patients with abnormal amounts of HbF. Blood transfusions may impact the HbA1c concentration in the patient sample. Estimated Average Glucose 197 eAG = Estimated average glucose which is %A1C expressed as average glucose, using the formula of the C2O-Lrnjkwq Average Glucose study (ADAG), Diabetes Care, Vol.31,#8, Feb. 2007 Complete Blood Count Auto Di ff Reviewed date:04/30/2024 07:08:24 AM Interpretation: Performing Lab:[facility], [address] [place] [phone] Notes/Report: White Blood Count 5.2 4.8-10.8 X10*3/uL Red Blood Count 4.63 4.60-5.80 X10*6/uL Hemoglobin 14.4 14.0-18.0 g/dl Hematocrit 41.0 42.0-52.0 % Mean Corpuscular Volume 88.6 80.0-98.0 fL Mean Corpuscular Hemoglobin 31.1 27.0-33.0 pg Mean Corpuscular HGB Conc 35.1 31.0-36.0 g/dl Red Cell Distribution Width 12.4 11.0-16.0 % Platelet Count 212 160-400 X10*3/uL Mean Platelet Volume 10.7 9.4-12.4 fL Neutrophils Percent Auto 51.1 45-73 % Imm Gran Pct Auto 0.2 0.0-0.4 % Lymphocytes Percent Auto 29.9 20-40 % Monocytes Percent Auto 9.0 2-11 % Eosinophils Percent Auto 8.6 0-4 % Basophils Percent Auto 1.2 0-2 % NRBC Pct Auto 0.0 0.0-0.2 /100WBC Neutrophils Absolute Auto 2.7 2.0-8.3 x10*3/u L Imm Gran Abs Auto 0.01 0.00-0.03 X10*3/uL Lymphocytes Absolute Auto 1.6 1.2-4.9 X10*3/u L Monocytes Absolute Auto 0.5 0.1-1.2 X10*3/uL Eosinophils Absolute Auto 0.5 0.0-0.4 X10*3/u L Basophils Absolute Auto 0.1 0.0-0.2 X10*3/uL NRBC Abs Auto 0.000 0.0-0.012 X10*3/uL Comprehensive Tram. Panel Fa st Reviewed date:04/30/2024 07:08:24 AM Interpretation: Performing Lab:[facility], [address] [place] [phone] Notes/Report: Sodium 142 135-145 mmol/L Potassium 3.4 3.3-5.1 mmol/L Chloride 108 96-108 mmol/L Carbon Dioxide 26 22-29 mmol/L Anion Gap 11 12-20 Blood Urea Nitrogen 15 9-16 mg/dL Creatinine 0.87 0.5-1.4 mg/dL Estimated Glomerular Filt Rate > 60 NOTE: For -Moroccan individuals, multiply the result by 1.210. Chronic Kidney Disease: Estimated GFR < 60 mL/min/1.73m2 Severe Kidney Disease: Estimated GFR < 15 mL/min/1.73m2 Glucose Fasting 178 60-99 mg/dL A fasting glucose of 126 mg/dl or greater on more than one occasion is considered diagnostic of diabetes. Calcium 9.1 8.4-10.2 mg/dL Bilirubin Total 1.2 0.0-1.0 mg/dL Aspartate Amino Transferase 14 5-37 U/L Alanine Aminotransferase 13 0-40 U/L Total Protein 6.5 6.5-8.0 g/dL Albumin Level 4.3 3.5-5.0 g/dL Alkaline Phosphatase 74 39-117 U/L Lipid Panel Reviewed date:04/30/2024 07:08:24 AM Interpretation: Performing Lab:[address] [phone] Notes/Report: Triglycerides 61 <150 mg/dL Desirable Triglyceride: less than 150 mg/dL Borderline High Triglyceride 150-199 mg/dL High Triglyceride: 200-499 mg/dL Very High Triglyceride: greater than or equal to 5OO mg/dL Cholesterol 134 <200 mg/dL Desirable Cholesterol: less than 200 mg/dL Borderline High Cholesterol: 200-239 mg/dL High Cholesterol: greater than 239 mg/dL LDL Cholesterol Calculated 76 <100 mg/dL Desirable LDL: less than 100 mg/dL Near Optimal/Above Optimal LDL: 110-129 mg/dL Borderline High LDL: 130-159 mg/dL High LDL: 160-189 mg/dL Very High LDL: greater than or equal to 190 mg/dL HDL Cholesterol 46 >40 mg/dL Desirable HDL: greater than 40 mg/dL Note: This HDL assay may give artificially low results in patients with liver disease. Microalbumin, Random Reviewed date:04/30/2024 07:08:24 AM Interpretation: Performing Lab:[facility], [address] [place] [phone] Notes/Report: Creatinine Urine 149.09 Microalbumin Urine 28.0 Microalbum/Creatinine Ratio Ur 18.7 <30 ug/mg cr Albumin/Creatinine Ratio Reference Ranges: Normal: < 30 ug/mg creatinine Microalbuminuria: 30 - 300 ug/mg creatinine Clinical Albuminuria: > 300 ug/mg creatinine Hemoglobin A1c Reviewed date:04/30/2024 07:08:24 AM Interpretation: Performing Lab:[address] [phone] Notes/Report: Hemoglobin A1c % 7.4 <6.0 % Hemoglobin A1C Reference Range Adults: 4.8 - 6.0 % Non diabetic: < 6.0 % Goal: < 7.0 % Additional Action Suggested: > 8.0 % Note: Hemoglobin A1c results are invalid for patients with abnormal amounts of HbF. Blood transfusions may impact the HbA1c concentration in the patient sample. Estimated Average Glucose 166 eAG = Estimated average glucose which is %A1C expressed as average glucose, using the formula of the B7T-Biagdad Average Glucose study (ADAG), Diabetes Care, Vol.31,#8, 2007 Reason For Referral No Information Medications Medication SIG (Take, Route, Frequency, Duration) Notes Start Date End Date Status Tamsulosin HCl 0.4 MG 2 capsules 30 vera savanah after the same meal each day Orally Once a day 05/04/2019 Active Loratadine 10 MG 1 tablet Orally Once a day Active oxyBUTYnin Chloride ER 10 MG 1 tablet Orally Once a day Active Sildenafil Citrate 50 MG TAKE 1 TABLET B Y MOUTH EVERY DAY NEEDED Active metFORMIN HCl 500 MG TAKE 1 TABLET BY MO UTH TWICE A DAY WITH MEALS FOR 90 DAYS Active Lisinopril 40 MG TAKE 1 TABLET BY BRAD TH EVERY DAY for 90 Active metFORMIN HCl 1000 MG 1 tablet with a me al Orally twice a day 01/27/2024 Active NIFEdipine ER 30 MG TAKE 1 TABLET BY BRAD TH EVERY DAY ON EMPTY STOMACH Active Simvastatin 20 MG TAKE 1 TABLET BY BRAD TH EVERY DAY IN THE EVENING Active Paxlovid (300/100) 20 x 150 MG & 10 x 100MG as directed Orally twice a day 07/07/2023 Active Atenolol 100 MG TAKE 1 TABLET BY BRAD TH EVERY DAY for 90 Active Immunizations Vaccine Route Administration Date Status Comme nts Influenza, quad IM Intramuscular 06/22/2021 Administered COVID- 19 Vaccine Unknown 10/09/2020 Administered COVID- 19 Vaccine Unknown 05/13/2021 Administered PCV13 Unknown 05/13/2021 Administered COVID- 19 Vaccine Unknown 09/11/2020 Administered COVID Moderna Bivalent Unknown 05/03/2022 Administered COVID-19 Comirnaty Pfizer-BioNTech Unknown 08/15/2023 Administered Influenza-iiv4 p-free high dose Unknown 05/03/2022 Administered Social History Tobacco Use: Social History Observation Description Date Details (start date - stop date) Never Smoker NA - NA Sex Assigned At : Social History Observation Description Sex Assigned At Male Tobacco Use/Smoking Question Answer Notes Patient is a nonsmoker Additional Findings: Tobacco Non-User Aggressive non-smoker Alcohol Screen Question Answer Notes Did you have a drink contain ing alcohol in the past year? Yes How often did you have a dri nk containing alcohol in the past year? 4 or more times a week (4 points) How many drinks did you have on a typical day when you were drinking in the past year? 1 or 2 drinks (0 point) How often did you have 6 or more drinks on one occasion in the past year? Never (0 point) Points 4 Interpretation Positive Problems Problem Type SNOMED Code ICD Code Onset Dates Problem Status W/U Status Risk Notes Problem 103305940 Nocturia (R35.1) Active confirmed He says he has been rising at most once a night. No change in his regimen was indicated. We discussed lifestyle modification as a means to reduce nocturia. Problem 036085709 Obesity (BMI 30-39.9) (E66.9) Active confirmed His body ma ss index is 32 and his weight has been stable. We reviewed his weight loss strategy in detail today. Problem [id number] Erectile dysfunction, unspecified erectile dysfunction type (N52.9) Active confirmed He has an established relationship now with a urologist. Problem 62110434 Essential hypertension (I10) Active confirmed His blood pressure is slightly high at 140/80. Will be rechecked again in the near future. We discussed diet and nutrition and the elements of sodium restriction and weight loss in great detail today. Problem Hyperlipidaemia (73632341) Hyperlipidemia, unspecified hyperlipidemia type (E78.5) Active confirmed His lipids are currently stable. No change in his medication was made. I have encouraged aggrressive weight loss and adherence to a diabetic weight reduction diet. Problem 176686072 Renal cyst (N28.1) Active confirmed He will continue to be followed by the radiologist. He has had no hematuria. Problem 833342861 Benign prostatic hyperplasia with lower urinary tract symptoms (N40.1) Active confirmed He rises from sleep on the average of once a night to urinate. We discussed lifestyle modifications he could make reduce this. Problem Type 2 diabetes mellitus without complication (353059348) Type 2 diabetes mellitus without complication, without long-term current use of insulin (E11.9) Active confirmed His hemoglob in A1c has decreased to 7.4.He was continued on the metformin dose of one thousand milligrams twice a day. Problem 81874975 Degenerative disc disease at L5-S1 level (M51.36) Active confirmed This is a minor problem at this time is well controlled with ibuprofen or naproxen. Problem 4983672 Adrenal nodule (E27.9) Active confirmed On a recent CT scan of the abdomen done for other reasons. He had a nodularity in his right adrenal gland measuring 1.7 cm. This will be followed with imaging. This will be imaged as well with the kidney. Vital Signs Heart Rate 62 /min 05/03/2024 Temperature 97.3 degrees Fahrenheit 05/03/2024 Blood pressure diastolic 75 mm Hg 05/03/2024 Height 65 in 05/03/2024 Blood pressure systolic 139 mm Hg 05/03/2024 Weight 193 lbs 05/03/2024 BMI 32.11 kg/m2 05/03/2024 Encounters Encounter Location Date Provider Diagnosis Ravinder Ortiz III, MD [address] [place] [address] [place] [address] 09/26/2023 Ravinder Ortiz Type 2 diabetes jordy itus without complication, without long-term current use of insulin E11.9 ; Hyperlipidemia, unspecified hyperlipidemia type E78.5 ; Obesity (BMI 30-39.9) E66.9 ; Benign prostatic hyperplasia with lower urinary tract symptoms N40.1 and Essential hypertension I10 Ravinder Ortiz III, MD [address] [place] [address] [place] [address] 01/27/2024 Ravinder Ortiz Type 2 diabetes jordy itus without complication, without long-term current use of insulin E11.9 ; Hyperlipidemia, unspecified hyperlipidemia type E78.5 ; Obesity (BMI 30-39.9) E66.9 ; Essential hypertension I10 and Benign prostatic hyperplasia with lower urinary tract symptoms N40.1 Ravinder Ortiz III, MD [address] [place] [address] [place] [address] 05/03/2024 Ravinder Ortiz Type 2 diabetes jordy itus without complication, without long-term current use of insulin E11.9 ; Hyperlipidemia, unspecified hyperlipidemia type E78.5 ; Obesity (BMI 30-39.9) E66.9 and Benign prostatic hyperplasia with lower urinary tract symptoms N40.1 Assessments Encounter Date Diagnosis (ICD Code) Assessment Notes Treat ment Notes Treatment Clinical Notes 09/26/2023 Hyperlipidemia, unspecified hyperlipidemia type (ICD-10 - E78.5) His lipids are stable and in near target range. No change in his regimen was needed. 09/26/2023 Type 2 diabetes mellitus without complication, without long-term current use of insulin (ICD-10 - E11.9) He is trying to lose weight and consume a healthy diabetic diet, low in animal fat. His fasting blood glucose was 183. His hemoglobin A1c has decreased to 7.5.. His fasting cholesterol is 163. I have recommended aggressive continued weight loss and a healthy diet and physical activity. No change in his medications was made. 01/27/2024 Hyperlipidemia, unspecified hyperlipidemia type (ICD-10 - E78.5) His lipids are currently stable and no change in his medication was made. 01/27/2024 Type 2 diabetes mellitus without complication, without long-term current use of insulin (ICD-10 - E11.9) His hemoglobin A1c has increased to 8.5. I increased the metformin dose to one thousand milligrams twice a day. 05/03/2024 Hyperlipidemia, unspecified hyperlipidemia type (ICD-10 - E78.5) His lipids are currently stable. No change in his medication was made. I have encouraged aggrressive weight loss and adherence to a diabetic weight reduction diet. 05/03/2024 Type 2 diabetes mellitus without complication, without long-term current use of insulin (ICD-10 - E11.9) His hemoglobin A1c has decreased to 7.4.He was continued on the metformin dose of one thousand milligrams twice a day. 09/26/2023 Obesity (BMI 30-39.9 ) (ICD-10 - E66.9) He has lost 2 pounds. His BMI is 31.9. We discussed a weight loss diabetic diet at length today. We made a plan to lose weight at a rate of one half of a pound per week. 01/27/2024 Obesity (BMI 30-39.9 ) (ICD-10 - E66.9) We have reviewed his weight loss strategy and is diabetic diet. We made a plan to lose weight at a rate of one half of a pound per week. 05/03/2024 Obesity (BMI 30-39.9 ) (ICD-10 - E66.9) His body mass index is 32 and his weight has been stable. We reviewed his weight loss strategy in detail today. 09/26/2023 Benign prostatic hyperplasia with lower urinary tract symptoms (ICD-10 - N40.1) He is rising from sleep once or twice a night to urinate. We have discussed lifestyle modification as a way to reduce this. 01/27/2024 Essential hypertension (ICD-10 - I10) His blood pressure is slightly high at 140/80. Will be rechecked again in the near future. We discussed diet and nutrition and the elements of sodium restriction and weight loss in great detail today. 05/03/2024 Benign prostatic hyperplasia with lower urinary tract symptoms (ICD-10 - N40.1) He rises from sleep on the average of once a night to urinate. We discussed lifestyle modifications he could make reduce this. 09/26/2023 Essential hypertension (ICD-10 - I10) His blood [...] way to reduce this. Plan Of Treatment Pending Test Test Name Order Date PROFILE, FASTING (COMPREHENSIVE METABOLI C) 06/08/2022 PROFILE, FASTING (COMPREHENSIVE METABOLI C) 04/06/2022 PROFILE, FASTING (COMPREHENSIVE METABOLI C) 02/17/2023 PROFILE, FASTING (COMPREHENSIVE METABOLI C) 05/12/2018 PROFILE, FASTING (COMPREHENSIVE METABOLI C) 10/14/2022 PROFILE, FASTING (COMPREHENSIVE METABOLI C) 09/22/2021 PROFILE, FASTING (COMPREHENSIVE METABOLI C) 03/03/2018 PROFILE, FASTING (COMPREHENSIVE METABOLI C) 06/22/2021 PROFILE, FASTING (COMPREHENSIVE METABOLI C) 12/22/2021 PROFILE, FASTING (COMPREHENSIVE METABOLI C) 02/18/2021 PROFILE, FASTING (COMPREHENSIVE METABOLI C) 10/16/2020 PROFILE, FASTING (COMPREHENSIVE METABOLI C) 06/19/2020 PROFILE, FASTING (COMPREHENSIVE METABOLI C) 09/26/2023 PROFILE, FASTING (COMPREHENSIVE METABOLI C) 09/22/2018 PROFILE, FASTING (COMPREHENSIVE METABOLI C) 05/03/2024 PROFILE, FASTING (COMPREHENSIVE METABOLI C) 06/16/2023 PROFILE, FASTING (COMPREHENSIVE METABOLI C) 01/27/2024 PROFILE, FASTING (COMPREHENSIVE METABOLI C) 05/04/2019 PROFILE, RANDOM (COMPREHENSIVE METABOLIC ) 12/29/2018 PROFILE, RANDOM (COMPREHENSIVE METABOLIC ) 09/14/2019 PROFILE, RANDOM (COMPREHENSIVE METABOLIC ) 02/14/2020 HEMOGLOBIN A1C (GLYCOHEMOGLOBIN) 019 HEMOGLOBIN A1C (GLYCOHEMOGLOBIN) 020 HEMOGLOBIN A1C (GLYCOHEMOGLOBIN) 019 HEMOGLOBIN A1C (GLYCOHEMOGLOBIN) 022 HEMOGLOBIN A1C (GLYCOHEMOGLOBIN) 019 HEMOGLOBIN A1C (GLYCOHEMOGLOBIN) 022 HEMOGLOBIN A1C (GLYCOHEMOGLOBIN) 023 HEMOGLOBIN A1C (GLYCOHEMOGLOBIN) 018 HEMOGLOBIN A1C (GLYCOHEMOGLOBIN) 023 HEMOGLOBIN A1C (GLYCOHEMOGLOBIN) 022 HEMOGLOBIN A1C (GLYCOHEMOGLOBIN) 018 HEMOGLOBIN A1C (GLYCOHEMOGLOBIN) 021 HEMOGLOBIN A1C (GLYCOHEMOGLOBIN) 022 HEMOGLOBIN A1C (GLYCOHEMOGLOBIN) 020 HEMOGLOBIN A1C (GLYCOHEMOGLOBIN) 021 LIPID PANEL 09/22/2018 LIPID PANEL 02/14/2020 LIPID PANEL 06/08/2022 LIPID PANEL 12/29/2018 LIPID PANEL 04/06/2022 LIPID PANEL 02/17/2023 LIPID PANEL 05/12/2018 LIPID PANEL 10/14/2022 LIPID PANEL 02/18/2021 LIPID PANEL 09/22/2021 LIPID PANEL 03/03/2018 LIPID PANEL 12/22/2021 LIPID PANEL 10/16/2020 LIPID PANEL 06/19/2020 PSA, TOTAL 09/26/2023 PSA, TOTAL 06/19/2020 PSA, TOTAL 05/03/2024 PSA, TOTAL 09/22/2018 PSA, TOTAL 06/08/2022 PSA, TOTAL 02/17/2023 PSA, TOTAL 02/18/2021 PSA, TOTAL 09/22/2021 PSA, TOTAL 03/03/2018 MICROALBUMIN, RANDOM 12/29/2018 MICROALBUMIN, RANDOM 04/06/2022 MICROALBUMIN, RANDOM 09/22/2018 MICROALBUMIN, RANDOM 10/14/2022 MICROALBUMIN, RANDOM 06/08/2022 MICROALBUMIN, RANDOM 02/17/2023 MICROALBUMIN, RANDOM 09/22/2021 MICROALBUMIN, RANDOM 10/16/2020 CBC w DIFF 09/22/2021 CBC w DIFF 10/16/2020 CBC w DIFF 06/19/2020 CBC w DIFF 02/14/2020 CBC w DIFF 06/22/2021 CBC w DIFF 05/12/2018 CBC w DIFF 09/14/2019 CBC w DIFF 02/17/2023 CBC w DIFF 12/29/2018 CBC w DIFF 04/06/2022 CBC w DIFF 09/22/2018 CBC w DIFF 12/22/2021 CBC w DIFF 10/14/2022 CBC w DIFF 02/18/2021 CBC w DIFF 03/03/2018 CBC w DIFF 06/08/2022 CBC WITH AUTO DIFF 06/16/2023 CBC WITH AUTO DIFF 01/27/2024 CBC WITH AUTO DIFF 09/26/2023 CBC WITH AUTO DIFF 05/03/2024 Lipid Panel 06/16/2023 Lipid Panel 01/27/2024 Lipid Panel 09/26/2023 Lipid Panel 05/03/2024 Lipid Panel 06/22/2021 Microalbumin, Random 06/22/2021 Microalbumin, Random 06/16/2023 Microalbumin, Random 01/27/2024 Microalbumin, Random 09/26/2023 Microalbumin, Random 05/03/2024 Hemoglobin A1c 02/18/2021 Hemoglobin A1c 06/16/2023 Hemoglobin A1c 01/27/2024 Hemoglobin A1c 09/26/2023 Hemoglobin A1c 05/03/2024 Next Appt Details Provider Name:Ravinder Ortiz, 10/01/2024 10:00:00 AM, [address] [place] [address] [address] [facility] [address], [place], [address], Insurance Providers Payer Name Payer Address Payer Phone Subscriber Number Group Number Insured Name Patient Relationship to Insured Coverage Start Date Coverage End Date [facility] [address] [place], [place] [id number] [phone] [id number] YAMILEX IBARRA Self - patient is the insured 0 MEDICARE NGS [address] [place] [address] [id number] STACEY YAMILEX Self - patient is the insured Medical (General) History Medical History History ICD Code Hypertension, unspecified type I10 Hyperlipidemia, unspecified hyperlipidem ia type E78.5 diabetes mellitus left renal mass on 0.[address] scan 1.7 cm right adrenal nodule 2011 CT scan obesity degenerative disc disease L5-S1 eczema. Left ankle umbilical hernia shingles 2005 benign prostatic hypertrophy tubular adenoma Surgical History Surgery Date(Month/Year) appendectomy 1975 hernia removal 1999 colonoscopy,, [facility] [place] No history Hospitalization History Reason Date(Month/Year) No history
--- OUTSIDE RECORDS SUMMARY | 2024-09-25 06:17 | XMS_ITS ---
Author Organization Ravinder Ortiz III, MD Address [address] [place] [address] Care Team Providers Care Manager Of Pmo Name Role Phone Ravinder Ortiz Primary Care [...] 0.2 - 1.3 BLD 50 Negative - REASON FOR VISIT Annual Exam Medications Medication SIG (Take, Route, Frequency, Duration) Notes Start Date End Date Status Sildenafil Citrate 50 MG TAKE 1 TABLET B Y MOUTH EVERY DAY NEEDED Active metFORMIN HCl 500 MG TAKE 1 TABLET BY MO UTH TWICE A DAY WITH MEALS FOR 90 DAYS Active Lisinopril 40 MG TAKE 1 TABLET BY BRAD TH EVERY DAY Active Simvastatin 20 MG TAKE 1 TABLET BY BRAD TH EVERY DAY IN THE EVENING Active Paxlovid (300/100) 20 x 150 MG & 10 x 100MG as directed Orally twice a day 07/07/2023 Active NIFEdipine ER 30 MG TAKE 1 TABLET BY BRAD TH EVERY DAY ON EMPTY STOMACH Active Atenolol 100 MG TAKE 1 TABLET BY BRAD TH EVERY DAY Active Tamsulosin HCl 0.4 MG 2 capsules 30 vera savanah after the same meal each day Orally Once a day 05/04/2019 Active Loratadine 10 MG 1 tablet Orally Once a day Active oxyBUTYnin Chloride ER 10 MG 1 tablet Orally Once a day Active Social History Tobacco Use: Social History Observation Description Date Details (start date - stop date) Never Smoker NA - NA Sex Assigned At : Social History Observation Description Sex Assigned At Male Tobacco Use/Smoking Question Answer Notes Patient is a nonsmoker Additional Findings: Tobacco Non-User Aggressive non-smoker Vital Signs Temperature 98.4 degrees Fahrenheit 09/26/19 24 Blood pressure systolic 142 mm Hg 09/26/19 24 Blood pressure diastolic 79 mm Hg 024 Heart Rate 55 /min 09/26/2023 Height 65 in 09/26/2023 Weight 192 lbs 09/26/2023 BMI 31.95 kg/m2 09/26/2023 Encounters Encounter Location Date Provider Diagnosis Ravinder Ortiz III, MD [address] [place] [address] [place] [address] 09/26/2023 Ravinder Ortiz Type 2 diabetes jordy itus without complication, without long-term current use of insulin E11.9 ; Hyperlipidemia, unspecified hyperlipidemia type E78.5 ; Obesity (BMI 30-39.9) E66.9 ; Benign prostatic hyperplasia with lower urinary tract symptoms N40.1 and Essential hypertension I10 Assessments Encounter Date Diagnosis (ICD Code) Assessment Notes Treat ment Notes Treatment Clinical Notes 09/26/2023 Type 2 diabetes mellitus without complication, [...] No change in his medications was made. 09/26/2023 Hyperlipidemia, unspecified hyperlipidemia type (ICD-10 - E78.5) His lipids are stable and in near target range. No change in his regimen was needed. 09/26/2023 Obesity (BMI 30-39.9 ) (ICD-10 - E66.9) He has lost 2 pounds. His BMI is 31.9. We discussed a weight loss diabetic diet at length today. We made a plan to lose weight at a rate of one half of a pound per week. 09/26/2023 Benign prostatic hyperplasia with lower urinary tract symptoms (ICD-10 - N40.1) He is rising from sleep once or twice a night to urinate. We have discussed lifestyle modification as a way to reduce this. 09/26/2023 Essential hypertension (ICD-10 - I10) His blood pressure is slightly high at 140/80. Will be rechecked again in the near future. We discussed diet and nutrition and the elements of sodium restriction and weight loss in great detail today. Plan Of Treatment Medication Medication Name Sig Start Date Stop Date Notes Sildenafil Citrate 50 MG TAKE 1 TABLET B Y MOUTH EVERY DAY NEEDED metFORMIN HCl 500 MG TAKE 1 TABLET BY MO UTH TWICE A DAY WITH MEALS FOR 90 DAYS Lisinopril 40 MG TAKE 1 TABLET BY BRAD TH EVERY DAY Simvastatin 20 MG TAKE 1 TABLET BY BRAD TH EVERY DAY IN THE EVENING Paxlovid (300/100) 20 x 150 MG & 10 x 100MG as directed Orally twice a day 07/07/2023 NIFEdipine ER 30 MG TAKE 1 TABLET BY BRAD TH EVERY DAY ON EMPTY STOMACH Atenolol 100 MG TAKE 1 TABLET BY BRAD TH EVERY DAY Tamsulosin HCl 0.4 MG 2 capsules 30 vera savanah after the same meal each day Orally Once a day 05/04/2019 Loratadine 10 MG 1 tablet Orally Once a day oxyBUTYnin Chloride ER 10 MG 1 tablet Orally Once a day Pending Test Test Name Order Date PROFILE, FASTING (COMPREHENSIVE METABOLI C) 09/26/2023 PSA, TOTAL 09/26/2023 CBC WITH AUTO DIFF 09/26/2023 Lipid Panel 09/26/2023 Microalbumin, Random 09/26/2023 Hemoglobin A1c 09/26/2023 Next Appt Details Follow Up: 4 Months, Reason: OV Provider Name:Ravinder Ortiz, 10/01/2024 10:00:00 AM, [address] [place] [address] [address]PER, [place], [id number], Progress Notes * YAMILEX IBARRADOB: 5 (67 yo M)Acc No.[id number]:09/26/2023 Progress Notes Patient:?YAMILEX IBARRA Provider:?Ravinder Ortiz MD :[id number]???Age:67 Y???Sex:Male Genaro e:09/26/2023 Address[address] [id number] Subjective: * Chief Complaints: * ???Annual Exam * HPI: ???Depression Screening:? He returns to the office at the age of 67 for his annual physical examination. He has not been checking his fasting glucose levels regularly. He is experiencing nocturia once a night. His back pain has resolved. He has no new complaints. His blood pressure is stable. Discharge escalating consume a diabetic diet. He denies any hematuria. He has had no chest pain or bleeding. ?PHQ-9?Little interest or pleasure in doing things?Not at all ?Feeling down, depressed, or hopeless?Not at all ?Trouble falling or staying asleep, or sleeping too much?Not at all ?Feeling tired or having little energy?Not at all ?Poor appetite or overeating?Not at all ?Feeling bad about yourself or that you are a failure, or have let yourself or your family down?Not at all ?Trouble concentrating on things, such as reading the newspaper or watching television?Not at all ?Moving or speaking so slowly that other people could have noticed; or the opposite, being so fidgety or restless that you have been moving around a lot more than usual?Not at all ?Thoughts that you would be better off or of hurting yourself in some way?Not at all ?Total Score?0 ???COVID-19 Screening:?Questions?Have you experienced fever, chills, cough, sore throat, shortness of breath, difficulty breathing, muscle aches, loss of taste or smell??No ?Have you been exposed to the virus within the last 10 days??No ?Have you travelled internationally in the last 10 days??No ?Have you been exposed to COVID-19 in the past??Yes ???SDOH Questions:?SDOH Questions?In the past year have you been worried about losing your housing??No ?In the past year have you or any family members you live with been unable to get any of the following when it was really needed? Check all that apply:?None * ROS:?General/Constitutional:?pain?only normal aches and pains.?Chills?denies.?Fatigue?admits.?Fever?denies.?ENT:?Decreased hearing?in both ears.?Respiratory:?Cough?denies.?Cardiovascular:?Chest pain with exertion?denies.?Dyspnea on exertion?denies.?Shortness of breath?denies.?Gastrointestinal:?Constipation?denies.?Decreased appetite?denies.?Diarrhea?denies.?Heartburn?denies.?Nausea?denies.?Rectal bleeding?denies.?Vomiting?denies.?Hematology:?bruising?denies.?petechiae?denies.?Swollen glands?none have been noted.?Genitourinary:?Frequent urination?once a night.?Musculoskeletal:?Muscle aches?denies.?Painful joints?denies.?Sciatica?denies.?Weakness?denies.?Skin:?Itching?denies.?Rash?denies.?Skin lesion(s)?denies.?Neurologic:?Difficulty speaking?denies.?Dizziness?denies.?Headache?denies.?Low back pain?denies.?Psychiatric:?Depressed mood?denies.? * Medical History:? * Surgical History:?appendecto my 1976hernia removal 1999colonoscopy,, [facility] [place] * Hospitalization/Major Diagno stic Procedure:?Denies Past [...] Tobacco Non-User?Aggressive non-smoker ???He was born in [place] and raised at [facility] near [facility]. He has been to [place] for 44 years. 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 * Medications:?TakingTamsulosi n HCl 0.4 MG Capsule 2 capsules 30 minutes after the same meal each day Orally Once a dayLoratadine 10 MG Tablet 1 tablet Orally Once a dayoxyBUTYnin Chloride ER 10 MG Tablet Extended Release 24 Hour 1 tablet Orally Once a dayNIFEdipine ER 30 MG Tablet Extended Release 24 Hour TAKE 1 TABLET BY MOUTH EVERY DAY ON EMPTY STOMACH Sildenafil Citrate 50 MG Tablet TAKE 1 TABLET BY MOUTH EVERY DAY NEEDED metFORMIN HCl 500 MG Tablet TAKE 1 TABLET BY MOUTH TWICE A DAY WITH MEALS FOR 90 DAYS Lisinopril 40 MG Tablet TAKE 1 TABLET BY MOUTH EVERY DAY Atenolol 100 MG Tablet TAKE 1 TABLET BY MOUTH EVERY DAY Simvastatin 20 MG Tablet TAKE 1 TABLET BY MOUTH EVERY DAY IN THE EVENING Medication List reviewed and reconciled with the patientTaking Tamsulosin HCl 0.4 MG Capsule 2 capsules 30 minutes after the same meal each day Orally Once a dayTaking Loratadine 10 MG Tablet 1 tablet Orally Once a dayTaking oxyBUTYnin Chloride ER 10 MG Tablet Extended Release 24 Hour 1 tablet Orally Once a dayTaking NIFEdipine ER 30 MG Tablet Extended Release 24 Hour TAKE 1 TABLET BY MOUTH EVERY DAY ON EMPTY STOMACH Taking Sildenafil Citrate 50 MG Tablet TAKE 1 TABLET BY MOUTH EVERY DAY NEEDED Taking metFORMIN HCl 500 MG Tablet TAKE 1 TABLET BY MOUTH TWICE A DAY WITH MEALS FOR 90 DAYS Taking Lisinopril 40 MG Tablet TAKE 1 TABLET BY MOUTH EVERY DAY Taking Atenolol 100 MG Tablet TAKE 1 TABLET BY MOUTH EVERY DAY Taking Simvastatin 20 MG Tablet TAKE 1 TABLET BY MOUTH EVERY DAY IN THE EVENING Medication List reviewed and reconciled with the patient * Allergies:?No Known Drug All ergyno[Allergies Verified] Objective: * Vitals:?Ht: 65, Wt:192, BMI: 31.95, BP:142/79, HR:55, Temp:98.4, Wt-k.09. * ???Past Orders: Lab:URINE DIP STICK * Order Date 09/26/2023 06/08/2022 09/14/2019 Result: Normal SG 1.020 (Ref Range: 1.005 - 1.025) 1.025 1.020 pH 6.0 (Ref Range: 5.0 - 9.0) 5 5 WAN 70 (Ref Range: Negative -) NEG neg NIT Negative (Ref Range: Negative -) NEG neg PRO 15 (Ref Range: Negative - Trace) TRACE trace GLU Negative (Ref Range: Negative -) NORMAL normal KET Negative (Ref Range: Negative -) NEG neg UBG 0.2 (Ref Range: 0.1 - 1.8) NEG normal JENNIFER Negative (Ref Range: 0.2 - 1.3) NEG neg BLD 50 (Ref Range: Negative -) TRACE trace Menstrating NR N/A n/a * Lab:Hemoglobin A1c * Order Date 09/24/2023 06/06/2023 02/08/2023 Hemoglobin A1c % 7.5?H (Ref Range: <6.0 %) 8.5?H (Ref Range: <6.0 %) 7.5 (Ref Range: %) Estimated Average Glucose 169 (Ref Range: mg/dL) 197 (Ref Range: mg/dL) 169 (Ref Range: mg/dL) * Lab:Complete Blood Count Aut o Diff * Order Date 09/24/2023 06/06/2023 02/08/2023 White Blood Count 6.0 (Ref Range: 4.8-10.8 X10*3/uL) 5.5 (Ref Range: 4.8-10.8 X10*3/uL) 6.1 (Ref Range: 4.8-10.8 X10*3/uL) Red Blood Count 5.08 (Ref Range: 4.60-5.80 X10*6/uL) 4.97 (Ref Range: 4.60-5.80 X10*6/uL) 4.91 (Ref Range: 4.60-5.80 X10*6/uL) Hemoglobin 15.0 (Ref Range: 14.0-18.0 g/dl) 14.9 (Ref Range: 14.0-18.0 g/dl) 14.7 (Ref Range: 14.0-18.0 g/dl) Hematocrit 44.6 (Ref Range: 42.0-52.0 %) 43.6 (Ref Range: 42.0-52.0 %) 44.4 (Ref Range: 42.0-52.0 %) Mean Corpuscular Volume 87.8 (Ref Range: 80.0-98.0 fL) 87.7 (Ref Range: 80.0-98.0 fL) 90.4 (Ref Range: 80.0-98.0 fL) Mean Corpuscular Hemoglobin 29.5 (Ref Range: 27.0-33.0 pg) 30.0 (Ref Range: 27.0-33.0 pg) 29.9 (Ref Range: 27.0-33.0 pg) Mean Corpuscular HGB Conc 33.6 (Ref Range: 31.0-36.0 g/dl) 34.2 (Ref Range: 31.0-36.0 g/dl) 33.1 (Ref Range: 31.0-36.0 g/dl) Red Cell Distribution Width 12.7 (Ref Range: 11.0-16.0 %) 12.0 (Ref Range: 11.0-16.0 %) 12.3 (Ref Range: 11.0-16.0 %) Platelet Count 219 (Ref Range: 160-400 X10*3/uL) 202 (Ref Range: 160-400 X10*3/uL) 221 (Ref Range: 160-400 X10*3/uL) Mean Platelet Volume 10.6 (Ref Range: 9.4-12.4 fL) 10.8 (Ref Range: 9.4-12.4 fL) 10.9 (Ref Range: 9.4-12.4 fL) Neutrophils Percent Auto 56.5 (Ref Range: 45-73 %) 58.3 (Ref Range: 45-73 %) 58.3 (Ref Range: 45-73 %) Imm Gran Pct Auto 0.2 (Ref Range: 0.0-0.4 %) 0.2 (Ref Range: 0.0-0.4 %) 0.2 (Ref Range: 0.0-0.4 %) Lymphocytes Percent Auto 27.2 (Ref Range: 20-40 %) 26.8 (Ref Range: 20-40 %) 26.8 (Ref Range: 20-40 %) Monocytes Percent Auto 9.2 (Ref Range: 2-11 %) 8.8 (Ref Range: 2-11 %) 8.8 (Ref Range: 2-11 %) Eosinophils Percent Auto 5.7?H (Ref Range: 0-4 %) 5.0?H (Ref Range: 0-4 %) 5.1?H (Ref Range: 0-4 %) Basophils Percent Auto 1.2 (Ref Range: 0-2 %) 0.9 (Ref Range: 0-2 %) 0.8 (Ref Range: 0-2 %) NRBC Pct Auto 0.0 (Ref Range: 0.0-0.2 /100WBC) 0.0 (Ref Range: 0.0-0.2 /100WBC) 0.0 (Ref Range: 0.0-0.2 /100WBC) Neutrophils Absolute Auto 3.4 (Ref Range: 2.0-8.3 x10*3/uL) 3.2 (Ref Range: 2.0-8.3 x10*3/uL) 3.5 (Ref Range: 2.0-8.3 x10*3/uL) Imm Gran Abs Auto 0.01 (Ref Range: 0.00-0.03 X10*3/uL) 0.01 (Ref Range: 0.00-0.03 X10*3/uL) 0.01 (Ref Range: 0.00-0.03 X10*3/uL) Lymphocytes Absolute Auto 1.6 (Ref Range: 1.2-4.9 X10*3/uL) 1.5 (Ref Range: 1.2-4.9 X10*3/uL) 1.6 (Ref Range: 1.2-4.9 X10*3/uL) Monocytes Absolute Auto 0.6 (Ref Range: 0.1-1.2 X10*3/uL) 0.5 (Ref Range: 0.1-1.2 X10*3/uL) 0.5 (Ref [...] X10*3/uL) 0.000 (Ref Range: 0.0-0.012 X10*3/uL) * Lab:Zulema jackson Fast * Order Date 09/24/2023 06/06/2023 02/08/2023 Sodium 142 (Ref Range: 135-145 mmol/L) 140 (Ref Range: 135-145 mmol/L) 139 (Ref Range: 135-145 mmol/L) Bilirubin Total 1.1?H (Ref Range: 0.0-1.0 mg/dL) 0.7 (Ref Range: 0.0-1.0 mg/dL) 0.6 (Ref Range: 0.0-1.0 mg/dL) Aspartate Amino Transferase 11 (Ref Range: 5-37 U/L) 10 (Ref Range: 5-37 U/L) 14 (Ref Range: 5-37 U/L) Alanine Aminotransferase 13 (Ref Range: 0-40 U/L) 12 (Ref Range: 0-40 U/L) 14 (Ref Range: 0-40 U/L) Total Protein 7.0 (Ref Range: 6.5-8.0 g/dL) 6.6 (Ref Range: 6.5-8.0 g/dL) 6.8 (Ref Range: 6.5-8.0 g/dL) Albumin Level 4.4 (Ref Range: 3.5-5.0 g/dL) 4.2 (Ref Range: 3.5-5.0 g/dL) 4.2 (Ref Range: 3.5-5.0 g/dL) Alkaline Phosphatase 85 (Ref Range: 39-117 U/L) 87 (Ref Range: 39-117 U/L) 87 (Ref Range: 39-117 U/L) Potassium 3.4 (Ref Range: 3.3-5.1 mmol/L) 3.5 (Ref Range: 3.3-5.1 mmol/L) 3.7 (Ref Range: 3.3-5.1 mmol/L) Chloride 106 (Ref Range: 96-108 mmol/L) 105 (Ref Range: 96-108 mmol/L) 105 (Ref Range: 96-108 mmol/L) Carbon Dioxide 26 (Ref Range: 22-29 mmol/L) 28 (Ref Range: 22-29 mmol/L) 28 (Ref Range: 22-29 mmol/L) Anion Gap 13 (Ref Range: 12-20) 11?L (Ref Range: 12-20) 10?L (Ref Range: 12-20) Blood Urea Nitrogen 16 (Ref Range: 9-16 mg/dL) 17?H (Ref Range: 9-16 mg/dL) 13 (Ref Range: 9-16 mg/dL) Creatinine 0.90 (Ref Range: 0.5-1.4 mg/dL) 0.81 (Ref Range: 0.5-1.4 mg/dL) 0.83 (Ref Range: 0.5-1.4 mg/dL) Estimated Glomerular Filt Rate > 60 > 60 > 60 Glucose Fasting 183?H (Ref Range: 60-99 mg/dL) 201?H (Ref Range: 60-99 mg/dL) 178?H (Ref Range: 60-99 mg/dL) Calcium 9.4 (Ref Range: 8.4-10.2 mg/dL) 9.0 (Ref Range: 8.4-10.2 mg/dL) 9.2 (Ref Range: 8.4-10.2 mg/dL) * Lab:Lipid Panel * Order Date 09/24/2023 06/06/2023 02/08/2023 Triglycerides 90 (Ref Range: <150 mg/dL) 115 (Ref Range: <150 mg/dL) 132 (Ref Range: mg/dL) Cholesterol 154 (Ref Range: <200 mg/dL) 163 (Ref Range: <200 mg/dL) 139 (Ref Range: mg/dL) LDL Cholesterol Calculated 91 (Ref Range: <100 mg/dL) 96 (Ref Range: <100 mg/dL) 75 (Ref Range: mg/dl) HDL Cholesterol 45 (Ref Range: >40 mg/dL) 44 (Ref Range: >40 mg/dL) 38 (Ref Range: mg/dL) * Lab:Microalbumin, Random * Order Date 09/24/2023 06/06/2023 02/08/2023 Creatinine Urine 114.39 (Ref Range: mg/dL) 63.66 (Ref Range: mg/dL) 58.19 (Ref Range: mg/dL) Microalbumin Urine 28.0 (Ref Range: mg/L) 14.0 (Ref Range: mg/L) 14.0 (Ref Range: mg/L) Microalbum Creatinine Ratio Ur 24.4 (Ref Range: <30 ug/mg cr) 21.9 (Ref Range: <30 ug/mg cr) 24.0 (Ref Range: ug/mg cr) * Examination: ???General Examination: ?GENERAL APPEARANCE:?pleasant, well [...] organomegaly, no mass , centripital obesity.?RECTAL EXAM:?not examined, Declined.?MUSCULOSKELETAL:?extremities unremarkable, no clubbing, cyanosis or edema.?PERIPHERAL PULSES:?normal.?NEUROLOGIC:?alert and oriented, cranial nerves 2-12 grossly intact, deep tendon reflexes 2+ symmetrical, motor strength normal upper and lower extremities, sensory exam intact.?PSYCH:?alert, oriented.? Assessment: * Assessment: 1.?Hyperlipidemia, unspecifi ed hyperlipidemia type - E78.5, His lipids are stable and in near target range. No change in his regimen was needed.?2.?Type 2 diabetes mellitus without complication, without long-term current use of insulin - E11.9, He is trying to lose weight and consume a healthy diabetic diet, low in animal fat. His fasting blood glucose was 183. His hemoglobin A1c has decreased to 7.5.. His fasting cholesterol is 163. I have recommended aggressive continued weight loss and a healthy diet and physical activity. No change in his medications was made.?3.?Obesity (BMI 30-39.9) - E66.9, He has lost 2 pounds. His BMI is 31.9. We discussed a weight loss diabetic diet at length today. We made a plan to lose weight at a rate of one half of a pound per week. 4.?Benign prostatic hyperplasia with lower urinary tract symptoms - N40.1, He is rising from sleep once or twice a night to urinate. We have discussed lifestyle modification as a way to reduce this.?5.?Essential hypertension - I10, His blood pressure is slightly high at 140/80. Will be rechecked again in the near future. We discussed diet and nutrition and the elements of sodium restriction and weight loss in great detail today.? Plan: * Treatment: 2.?Type 2 diabetes mellitus without complication, without long-term current use of insulin? Continue Tamsulosin HCl Capsule, 0.4 MG, 2 capsules 30 minutes after the same meal each day, Orally, Once a day;?Continue Loratadine Tablet, 10 MG, 1 tablet, Orally, Once a day;?Continue oxyBUTYnin Chloride ER Tablet Extended Release 24 Hour, 10 MG, 1 tablet, Orally, Once a day.?LAB: PROFILE, FASTING (COMPREHENSIVE METABOLIC) ?LAB: PSA, TOTAL [...] Microalbumin, Random ?LAB: Hemoglobin A1c 5.?Others? Continue Simvastatin Tablet, 20 MG, TAKE 1 TABLET BY MOUTH EVERY DAY IN THE EVENING;?Continue Paxlovid (300/100) Tablet Therapy Pack, 20 x 150 MG & 10 x 100MG, as directed, Orally, twice a day;?Continue Atenolol Tablet, 100 MG, TAKE 1 TABLET BY MOUTH EVERY DAY;?Continue NIFEdipine ER Tablet Extended Release 24 Hour, 30 MG, TAKE 1 TABLET BY MOUTH EVERY DAY ON EMPTY STOMACH;?Continue Sildenafil Citrate Tablet, 50 MG, TAKE 1 TABLET BY MOUTH EVERY DAY NEEDED;?Continue metFORMIN HCl Tablet, 500 MG, TAKE 1 TABLET BY MOUTH TWICE A DAY WITH MEALS FOR 90 DAYS;?Continue Lisinopril Tablet, 40 MG, TAKE 1 TABLET BY MOUTH EVERY DAY.?? * Labs:? * ?Lab: URINE DIP STICK ? Value Reference Range ?SG 1.020 1.005 - 1.025 * ?pH 6.0 5.0 - 9.0 * ?WAN 70 Negative - * ?NIT Negative Negative - * ?PRO 15 Negative - Trac e * ?GLU Negative Negative - * ?KET Negative Negative - * ?UBG 0.2 0.1 - 1.8 * ?JENNIFER Negative 0.2 - 1.3 * ?BLD 50 Negative - * Procedure Codes:?86685 URINE -NO MICRO * Preventive Medicine:? ??Counseling:?Care goal follow-up plan:?Counseling [...] done: Medical or Other reason not done * Follow Up:?4 Months (Reason: OV) * Images: * Sign off status: Completed true * Provider:?Ravinder Ortiz MD Date:?09/15 Generated for Farrahi bridget/Candida/eTransmitting on:?09/25/2024 06:17 AM EDT History and Physical Notes * HPI (History of Present Illness) Category Sub-Category Detail Notes Depression Screening PHQ-9 Little inte rest or pleasure in doing things: Not at all Feeling down, depressed, or hopeless: No t at all Trouble falling or staying asleep, or sl eeping too much: Not at all Feeling tired or having little energy: N ot at all Poor appetite or overeating: Not at all Feeling bad about yourself o r that you are a failure, or have let yourself or your family down: Not at all Trouble concentrating on thi ngs, such as reading the newspaper or watching television: Not at all Moving or speaking so slowly that other people could have noticed; or the opposite, being so fidgety or restless that you have been moving around a lot more than usual: Not at all Thoughts that you would be b hernando off or of hurting yourself in some way: Not at all Total Score: 0 COVID-19 Screening Questions Have you had any new onset fever, chills, cough, congestion, sore throat, shortness of breath, muscle aches?: No Have you been exposed to the virus withi n the last 10 days?: No Have you travelled internationally in e last 10 days?: No Have you been exposed to COVID-19 in the past?: Yes SDOH Questions SDOH Questions In the past year have you been worried about losing your housing?: No In the past year have you or any family members you live with been unable to get any of the following when it was really needed? Check all that apply:: None Examination Category Sub-Category Detail Notes General Examination [...] lymph no joellen,spleen normal RECTAL EXAM: not examined, Declin ed PSYCH: alert, oriented ORAL CAVITY: normal, unremarkable
[2024-09-25 10:25] LABS: MANUAL DIFF FLAG NO
[2024-09-25 10:29] LABS: Basophils Percent Auto 0.5 % (0-2); Eosinophils Absolute Auto 0.3 X10*3/uL (0.0-0.4); Eosinophils Percent Auto 4.3 % (0-4); Hematocrit 42.5 % (42.0-52.0); Hemoglobin 14.9 g/dl (14.0-18.0); Imm Gran Abs Auto 0.03 X10*3/uL (0.00-0.03); Imm Gran Pct Auto 0.5 % (0.0-0.4); Lymphocytes Percent Auto 30.9 % (20-40); Mean Corpuscular HGB Conc 35.1 g/dl (31.0-36.0); Mean Corpuscular Hemoglobin 30.1 pg (27.0-33.0); Mean Corpuscular Volume 85.9 fL (80.0-98.0); Mean Platelet Volume 10.6 fL (9.4-12.4); Monocytes Absolute Auto 0.5 X10*3/uL (0.1-1.2); Monocytes Percent Auto 7.7 % (2-11); Neutrophils Absolute Auto 3.6 x10*3/uL (2.0-8.3); Neutrophils Percent Auto 56.1 % (45-73); Platelet Count 241 X10*3/uL (160-400); Red Blood Count 4.95 X10*6/uL (4.60-5.80); Red Cell Distribution Width 12.2 % (11.0-16.0); White Blood Count 6.3 X10*3/uL (4.8-10.8)
[2024-09-25 10:43] LABS: Creatinine Urine 79.38 mg/dL; Estimated Average Glucose 192 mg/dL; Hemoglobin A1c % 8.3 % (<6.0); Microalbum/Creatinine Ratio Ur 47.8 ug/mg cr (<30)
[2024-09-25 10:51] LABS: Alanine Aminotransferase 16 U/L (0-40); Albumin Level 4.1 g/dL (3.5-5.0); Alkaline Phosphatase 90 U/L (39-117); Anion Gap 10 (12-20); Aspartate Amino Transferase 16 U/L (5-37); Bilirubin Total 0.7 mg/dL (0.0-1.0); Blood Urea Nitrogen 12 mg/dL (9-16); Calcium 8.8 mg/dL (8.4-10.2); Carbon Dioxide 29 mmol/L (22-29); Chloride 104 mmol/L (96-108); Cholesterol 143 mg/dL (<200); Estimated Glomerular Filt Rate > 60; Glucose Fasting 228 mg/dL (60-99); HDL Cholesterol 37 mg/dL (>40); LDL Cholesterol Calculated 80 mg/dL (<100); Potassium 3.5 mmol/L (3.3-5.1); Sodium 139 mmol/L (135-145); Total Protein 7.1 g/dL (6.5-8.0); Triglycerides 130 mg/dL (<150)
[2024-09-25 11:11] LABS: Prostate Specific Antigen 2.03 ng/mL (<0.05-4.0)
== END 2024-09-25 06:14 | disposition home or self-care (01) ==
LOC: HO.HMGCLDS 06:13
PROVIDERS: PCP Internal Medicine Medical Oncology; Visit Provider Internal Medicine Medical Oncology
DX: E11.9 Type 2 diabetes mellitus without complications (principal); E78.5 Hyperlipidemia, unspecified; Z12.5 Encounter for screening for malignant neoplasm of prostate; E66.9 Obesity, unspecified; N40.1 Benign prostatic hyperplasia with lower urinary tract symptoms
CPT/HCPCS: 36415; 80053; 80061; 82043; 82570; 83036; 84153; 85025

== ENCOUNTER 2025-01-21 06:20 | Outpatient (REF) | payer MEDICARE, SELFPAY ==
[2025-01-21 10:47] LABS: MANUAL DIFF FLAG NO
[2025-01-21 10:59] LABS: Hematocrit 40.8 % (42.0-52.0); Hemoglobin 14.3 g/dl (14.0-18.0); Imm Gran Abs Auto 0.01 X10*3/uL (0.00-0.03); Imm Gran Pct Auto 0.2 % (0.0-0.4); Lymphocytes Absolute Auto 1.6 X10*3/uL (1.2-4.9); Mean Corpuscular HGB Conc 35.0 g/dl (31.0-36.0); Mean Corpuscular Hemoglobin 31.0 pg (27.0-33.0); Mean Corpuscular Volume 88.5 fL (80.0-98.0); NRBC Abs Auto 0.000 X10*3/uL (0.0-0.012); NRBC Pct Auto 0.0 /100WBC (0.0-0.2); Platelet Count 206 X10*3/uL (160-400); Red Blood Count 4.61 X10*6/uL (4.60-5.80); White Blood Count 5.5 X10*3/uL (4.8-10.8)
[2025-01-21 11:41] LABS: Prostate Specific Antigen 1.82 ng/mL (<0.05-4.0)
[2025-01-21 11:54] LABS: Alanine Aminotransferase 14 U/L (0-40); Albumin Level 4.2 g/dL (3.5-5.0); Alkaline Phosphatase 67 U/L (39-117); Anion Gap 12 (12-20); Aspartate Amino Transferase 18 U/L (5-37); Blood Urea Nitrogen 13 mg/dL (9-16); Calcium 9.4 mg/dL (8.4-10.2); Carbon Dioxide 26 mmol/L (22-29); Chloride 106 mmol/L (96-108); Cholesterol 137 mg/dL (<200); Estimated Glomerular Filt Rate > 60; HDL Cholesterol 45 mg/dL (>40); Potassium 3.6 mmol/L (3.3-5.1); Sodium 140 mmol/L (135-145); Total Protein 6.2 g/dL (6.5-8.0); Triglycerides 98 mg/dL (<150)
[2025-01-21 14:55] LABS: Microalbum/Creatinine Ratio Ur 13.3 ug/mg cr (<30)
== END 2025-01-21 06:21 | disposition home or self-care (01) ==
LOC: HO.HMGCLDS 06:20
PROVIDERS: PCP Internal Medicine Medical Oncology; Visit Provider Internal Medicine Medical Oncology
DX: E11.9 Type 2 diabetes mellitus without complications (principal); E78.5 Hyperlipidemia, unspecified; I10 Essential (primary) hypertension; E66.9 Obesity, unspecified; N40.1 Benign prostatic hyperplasia with lower urinary tract symptoms; Z12.5 Encounter for screening for malignant neoplasm of prostate
CPT/HCPCS: 36415; 80053; 80061; 82043; 82570; 84153; 85025

== ENCOUNTER 2025-04-22 06:27 | Outpatient (REF) | payer MEDICARE, SELFPAY ==
--- OUTSIDE RECORDS SUMMARY | 2024-01-27 06:45 | XMS_ITS ---
Author Organization Ravinder Ortiz III, MD Address [address] [place] [address] [place] [address] Care Team Providers Care Assurance Senior Manager Name Role Phone Dr. Ravinder Ortiz III Primary Care Provider Allergies Allergen (clinical drug ingredient) Drug/Non Drug Allergy documented on EMR Reaction Allergy Type Onset Date Status No Known Drug Allergy Unknown Drug Allergy Active REASON FOR VISIT Diabetes, Hyperlipidemia, Hypertension, Obesity, Benign prostatic hypertrophy, DJD L5-S1 Medications Medication SIG (Take, Route, Frequency, Duration) Notes Start Date End Date Status metFORMIN HCl 1000 MG 1 tablet with a me al Orally twice a day for 90 days 01/27/2024 Active Lisinopril 40 MG TAKE 1 TABLET BY BRAD TH EVERY DAY Active metFORMIN HCl 500 MG TAKE 1 TABLET BY MO [facility] TWICE A DAY WITH MEALS FOR 90 DAYS Active Sildenafil Citrate 50 MG TAKE 1 TABLET B Y MOUTH EVERY DAY NEEDED Active oxyBUTYnin Chloride ER 10 MG 1 tablet Orally Once a day Active Simvastatin 20 MG TAKE 1 TABLET BY BRAD TH EVERY DAY IN THE EVENING Active Loratadine 10 MG 1 tablet Orally Once a day Active Tamsulosin HCl 0.4 MG 2 capsules 30 vera savanah after the same meal each day Orally Once a day 05/04/2019 Active Atenolol 100 MG TAKE 1 TABLET BY BRAD TH EVERY DAY Active Paxlovid (300/100) 20 x 150 MG & 10 x 100MG as directed Orally twice a day 07/07/2023 Active NIFEdipine ER 30 MG TAKE 1 TABLET BY BRAD TH EVERY DAY ON EMPTY STOMACH Active Social History Tobacco Use: Social History Observation Description Date Details (start date - stop date) Never Smoker NA - NA Sex Assigned At : Social History Observation Description Sex Assigned At Male Tobacco Use/Smoking Question Answer Notes Patient is a nonsmoker Additional Findings: Tobacco Non-User Aggressive non-smoker Vital Signs Temperature 98.2 degrees Fahrenheit 01/27/20 24 Blood pressure systolic 140 mm Hg 01/27/20 24 Blood pressure diastolic 79 mm Hg 024 Heart Rate 62 /min 01/27/2024 Height 65 in 01/27/2024 Weight 193 lbs 01/27/2024 BMI 32.11 kg/m2 01/27/2024 Encounters Encounter Location Date Provider Diagnosis Ravinder Ortiz III, MD [address] [place] [address] [place] [address] 01/27/2024 Ravinder Ortiz Type 2 diabetes jordy itus without complication, without long-term current use of insulin E11.9 ; Hyperlipidemia, unspecified hyperlipidemia type E78.5 ; Obesity (BMI 30-39.9) E66.9 ; Essential hypertension I10 and Benign prostatic hyperplasia with lower urinary tract symptoms N40.1 Assessments Encounter Date Diagnosis (ICD Code) Assessment Notes Treat ment Notes Treatment Clinical Notes 01/27/2024 Type 2 diabetes mellitus without complication, without long-term current use of insulin (ICD-10 - E11.9) His hemoglobin A1c has increased to 8.5. I increased the metformin dose to one thousand milligrams twice a day. 01/27/2024 Hyperlipidemia, unspecified hyperlipidemia type (ICD-10 - E78.5) His lipids are currently stable and no change in his medication was made. 01/27/2024 Obesity (BMI 30-39.9 ) (ICD-10 - E66.9) We have reviewed his weight loss strategy and is diabetic diet. We made a plan to lose weight at a rate of one half of a pound per week. 01/27/2024 Essential hypertension (ICD-10 - I10) His blood pressure is slightly high at 140/80. Will be rechecked again in the near future. We discussed diet and nutrition and the elements of sodium restriction and weight loss in great detail today. 01/27/2024 Benign prostatic hyperplasia with lower urinary tract symptoms (ICD-10 - N40.1) He is rising from sleep once or twice a night to urinate. We have discussed lifestyle modification as a way to reduce this. Plan Of Treatment Medication Medication Name Sig Start Date Stop Date Notes metFORMIN HCl 1000 MG 1 tablet with a me al Orally twice a day for 90 days 01/27/2024 Lisinopril 40 MG TAKE 1 TABLET BY BRAD TH EVERY DAY metFORMIN HCl 500 MG TAKE 1 TABLET BY MO UTH TWICE A DAY WITH MEALS FOR 90 DAYS Sildenafil Citrate 50 MG TAKE 1 TABLET B Y MOUTH EVERY DAY NEEDED oxyBUTYnin Chloride ER 10 MG 1 tablet Orally Once a day Simvastatin 20 MG TAKE 1 TABLET BY BRAD TH EVERY DAY IN THE EVENING Loratadine 10 MG 1 tablet Orally Once a day Tamsulosin HCl 0.4 MG 2 capsules 30 vera savanah after the same meal each day Orally Once a day 05/04/2019 Atenolol 100 MG TAKE 1 TABLET BY BRAD TH EVERY DAY Paxlovid (300/100) 20 x 150 MG & 10 x 100MG as directed Orally twice a day 07/07/2023 NIFEdipine ER 30 MG TAKE 1 TABLET BY BRAD TH EVERY DAY ON EMPTY STOMACH Pending Test Test Name Order Date PROFILE, FASTING (COMPREHENSIVE METABOLI C) 01/27/2024 CBC WITH AUTO DIFF 01/27/2024 Lipid Panel 01/27/2024 Microalbumin, Random 01/27/2024 Hemoglobin A1c 01/27/2024 Next Appt Details Follow Up: 3 Months, Reason: OV Provider Name:Ravinder Ortiz , 05/02/2025 09:15:00 AM, [address] [place] [address] [address], [place], [id number], Provider Name:Ravinder Ortiz , 10/03/2025 10:00:00 AM, [address] [place] [address] [address], [place], [id number], Progress Notes * YAMILEX IBARRADOB: 5 (68 yo M)Acc No.[id number]:01/27/2024 Progress Notes Patient: YAMILEX PUTNAM Provider: Poppy Ortiz MD :[id number] A ge:68 Y S ex:Male Date:01/27/2024 Address:[address] [place], [place] [address], [id number] Subjective: * Chief Complaints: * D iabetesHyperlipidemiaHypertensionObesityBenign prostatic hypertrophyDJD L5-S1 * HPI: C OVID-19 Screening: He returns for management of his metabolic syndrome. He says he is doing well and has no new problems. He says that his diabetes is okay. He has gained 1 pound in his hemoglobin A1c has increased to 8.5. I have increased his metformin to 1000 mg twice a day. He experiences nocturia twice a night. We discussed lifestyle modifications that could control nocturia. His blood work was reviewed with him in detail. Questions H ave you experienced fever, chills, cough, sore throat, shortness of breath, difficulty breathing, muscle aches, loss of taste or smell? N o H ave you been exposed to the virus within the last 10 days? N o H ave you travelled internationally in the last 10 days? N o H ave you been exposed to COVID-19 in the past? Y es * ROS: G eneral/Constitutional: pain o nly normal aches and pains. C hills d enies.?Fatigue a dmits. F ever d enies. E NT: Decreased hearing m ild. R espiratory: Cough d enies. C ardiovascular: Chest pain with exertion d enies. D yspnea on exertion?denies. S hortness of breath d enies. G astrointestinal: Constipation o ccasional. D ecreased appetite d enies. D iarrhea d enies. H eartburn d enies. N ausea d enies. R ectal bleeding d enies. V omiting d enies. H ematology: bruising d enies. p etechiae d enies. S wollen glands n one have been noted. G enitourinary: Frequent urination t wice a night. M usculoskeletal: Muscle aches d enies. P ainful joints d enies. S ciatica d enies. W eakness d enies. S kin: Itching d enies. R carmine d enies. S kin lesion(s)?denies. N eurologic: Difficulty speaking d enies. D izziness d enies.?Headache d enies. L ow back pain d enies. P sychiatric: Depressed mood d enies. * Medical History: * Surgical History: a ppendectomy 1975hernia removal 1999colonoscopy,, [facility] 05/2020 * Hospitalization/Major Diagno stic Procedure: D enies Past Hospitalization * Family History: F ather: , diagnosed with HTN. M other: alive. 2 brother(s) , 3 sister(s) - healthy. 1 son(s) , 1 daughter(s) - healthy. . His father had chronic lung disease and hypertension. His mother is living with macular degeneration. One daughter has arthritis. He has 2 brothers and 2 sisters. He is not aware of any inherited cancer family syndrome. He is not aware of any history of substance abuse or mental illness in the family. * Social History: T obacco Use: T obacco Use/Smoking P atient is a n onsmoker A dditional Findings: Tobacco Non-User A ggressive non-smoker H edgar was born in [place] and raised at [facility] near [facility]. He has been to [place] for 44 years. He worked as a [employer]lin and did [employer]. 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 * Medications: T akingSimvastatin 20 MG Tablet TAKE 1 TABLET BY MOUTH EVERY DAY IN THE EVENING Paxlovid (300/100) 20 x 150 MG & 10 x 100MG Tablet Therapy Pack as directed Orally twice a dayAtenolol 100 MG Tablet TAKE 1 TABLET BY MOUTH EVERY DAY Tamsulosin HCl 0.4 MG Capsule 2 capsules 30 minutes after the same meal each day Orally Once a dayLoratadine 10 MG Tablet 1 tablet Orally Once a dayoxyBUTYnin Chloride ER 10 MG Tablet Extended Release 24 Hour 1 tablet Orally Once a daySildenafil Citrate 50 MG Tablet TAKE 1 TABLET BY MOUTH EVERY DAY NEEDED metFORMIN HCl 500 MG Tablet TAKE 1 TABLET BY MOUTH TWICE A DAY WITH MEALS FOR 90 DAYS Lisinopril 40 MG Tablet TAKE 1 TABLET BY MOUTH EVERY DAY NIFEdipine ER 30 MG Tablet Extended Release 24 Hour TAKE 1 TABLET BY MOUTH EVERY DAY ON EMPTY STOMACH Medication List reviewed and reconciled with the patientTaking Simvastatin 20 MG Tablet TAKE 1 TABLET BY MOUTH EVERY DAY IN THE EVENING Taking Paxlovid (300/100) 20 x 150 MG & 10 x 100MG Tablet Therapy Pack as directed Orally twice a dayTaking Atenolol 100 MG Tablet TAKE 1 TABLET BY MOUTH EVERY DAY Taking Tamsulosin HCl 0.4 MG Capsule 2 capsules 30 minutes after the same meal each day Orally Once a dayTaking Loratadine 10 MG Tablet 1 tablet Orally Once a dayTaking oxyBUTYnin Chloride ER 10 MG Tablet Extended Release 24 Hour 1 tablet Orally Once a dayTaking Sildenafil Citrate 50 MG Tablet TAKE 1 TABLET BY MOUTH EVERY DAY NEEDED Taking metFORMIN HCl 500 MG Tablet TAKE 1 TABLET BY MOUTH TWICE A DAY WITH MEALS FOR 90 DAYS Taking Lisinopril 40 MG Tablet TAKE 1 TABLET BY MOUTH EVERY DAY Taking NIFEdipine ER 30 MG Tablet Extended Release 24 Hour TAKE 1 TABLET BY MOUTH EVERY DAY ON EMPTY STOMACH Medication List reviewed and reconciled with the patient * Allergies: N o Known Drug Allergyno[Allergies Verified] Objective: * Vitals: H t: 65, Wt:193, BMI:32.11, BP:140/79, HR:62, Temp:98.2, Wt-k.54. * P ast Orders: Lab:Prostate Specific Antige n * Order Date 01/20/2024 12/29/2023 06/06/2023 Prostate Specific Antigen 1.50 (Ref Range: <0.05-4.0 ng/mL) 1.57 (Ref Range: <0.05-4.0 ng/mL) 1.40 (Ref Range: <0.05-4.0 ng/mL) * Lab:Microalbumin, Random * Order Date 01/20/2024 09/24/2023 06/06/2023 Creatinine Urine 50.68 (Ref Range: mg/dL) 114.39 (Ref Range: mg/dL) 63.66 (Ref Range: mg/dL) Microalbumin Urine 13.0 (Ref Range: mg/L) 28.0 (Ref Range: mg/L) 14.0 (Ref Range: mg/L) Microalbum Creatinine Ratio Ur 25.6 (Ref Range: <30 ug/mg cr) 24.4 (Ref Range: <30 ug/mg cr) 21.9 (Ref Range: <30 ug/mg cr) * Lab:Lipid Panel * Order Date 01/20/2024 09/24/2023 06/06/2023 Triglycerides 106 (Ref Range: <150 mg/dL) 90 (Ref Range: <150 mg/dL) 115 (Ref Range: <150 mg/dL) Cholesterol 148 (Ref Range: <200 mg/dL) 154 (Ref Range: <200 mg/dL) 163 (Ref Range: <200 mg/dL) LDL Cholesterol Calculated 81 (Ref Range: <100 mg/dL) 91 (Ref Range: <100 mg/dL) 96 (Ref Range: <100 mg/dL) HDL Cholesterol 46 (Ref Range: >40 mg/dL) 45 (Ref Range: >40 mg/dL) 44 (Ref Range: >40 mg/dL) * Lab:Comprehensive [place]. Nellie l Fast * Order Date 01/20/2024 09/24/2023 06/06/2023 Sodium 138 (Ref Range: 135-145 mmol/L) 142 (Ref Range: 135-145 mmol/L) 140 (Ref Range: 135-145 mmol/L) Bilirubin Total 0.9 (Ref Range: 0.0-1.0 mg/dL) 1.1 H (Ref Range: 0.0-1.0 mg/dL) 0.7 (Ref Range: 0.0-1.0 mg/dL) Aspartate Amino Transferase 12 (Ref Range: 5-37 U/L) 11 (Ref Range: 5-37 U/L) 10 (Ref Range: 5-37 U/L) Alanine Aminotransferase 13 (Ref Range: 0-40 U/L) 13 (Ref Range: 0-40 U/L) 12 (Ref Range: 0-40 U/L) Total Protein 6.7 (Ref Range: 6.5-8.0 g/dL) 7.0 (Ref Range: 6.5-8.0 g/dL) 6.6 (Ref Range: 6.5-8.0 g/dL) Albumin Level 4.2 (Ref Range: 3.5-5.0 g/dL) 4.4 (Ref Range: 3.5-5.0 g/dL) 4.2 (Ref Range: 3.5-5.0 g/dL) Alkaline Phosphatase 86 (Ref Range: 39-117 U/L) 85 (Ref Range: 39-117 U/L) 87 (Ref Range: 39-117 U/L) Potassium 3.4 (Ref Range: 3.3-5.1 mmol/L) 3.4 (Ref Range: 3.3-5.1 mmol/L) 3.5 (Ref Range: 3.3-5.1 mmol/L) Chloride 102 (Ref Range: 96-108 mmol/L) 106 (Ref Range: 96-108 mmol/L) 105 (Ref Range: 96-108 mmol/L) Carbon Dioxide 26 (Ref Range: 22-29 mmol/L) 26 (Ref Range: 22-29 mmol/L) 28 (Ref Range: 22-29 mmol/L) Anion Gap 13 (Ref Range: 12-20) 13 (Ref Range: 12-20) 11 L (Ref Range: 12-20) Blood Urea Nitrogen 10 (Ref Range: 9-16 mg/dL) 16 (Ref Range: 9-16 mg/dL) 17 H (Ref Range: 9-16 mg/dL) Creatinine 0.86 (Ref Range: 0.5-1.4 mg/dL) 0.90 (Ref Range: 0.5-1.4 mg/dL) 0.81 (Ref Range: 0.5-1.4 mg/dL) Estimated Glomerular Filt Rate > 60 > 60 > 60 Glucose Fasting 227 H (Ref Range: 60-99 mg/dL) 183 H (Ref Range: 60-99 mg/dL) 201 H (Ref Range: 60-99 mg/dL) Calcium 9.2 (Ref Range: 8.4-10.2 mg/dL) 9.4 (Ref Range: 8.4-10.2 mg/dL) 9.0 (Ref Range: 8.4-10.2 mg/dL) * Lab:Complete Blood Count Aut o Diff * Order Date 01/20/2024 09/24/2023 06/06/2023 White Blood Count 6.1 (Ref Range: 4.8-10.8 X10*3/uL) 6.0 (Ref Range: 4.8-10.8 X10*3/uL) 5.5 (Ref Range: 4.8-10.8 X10*3/uL) Red Blood Count 4.92 (Ref Range: 4.60-5.80 X10*6/uL) 5.08 (Ref Range: 4.60-5.80 X10*6/uL) 4.97 (Ref Range: 4.60-5.80 X10*6/uL) Hemoglobin 15.1 (Ref Range: 14.0-18.0 g/dl) 15.0 (Ref Range: 14.0-18.0 g/dl) 14.9 (Ref Range: 14.0-18.0 g/dl) Hematocrit 43.6 (Ref Range: 42.0-52.0 %) 44.6 (Ref Range: 42.0-52.0 %) 43.6 (Ref Range: 42.0-52.0 %) Mean Corpuscular Volume 88.6 (Ref Range: 80.0-98.0 fL) 87.8 (Ref Range: 80.0-98.0 fL) 87.7 (Ref Range: 80.0-98.0 fL) Mean Corpuscular Hemoglobin 30.7 (Ref Range: 27.0-33.0 pg) 29.5 (Ref Range: 27.0-33.0 pg) 30.0 (Ref Range: 27.0-33.0 pg) Mean Corpuscular HGB Conc 34.6 (Ref Range: 31.0-36.0 g/dl) 33.6 (Ref Range: 31.0-36.0 g/dl) 34.2 (Ref Range: 31.0-36.0 g/dl) Red Cell Distribution Width 12.7 (Ref Range: 11.0-16.0 %) 12.7 (Ref Range: 11.0-16.0 %) 12.0 (Ref Range: 11.0-16.0 %) Platelet Count 211 (Ref Range: 160-400 X10*3/uL) 219 (Ref Range: 160-400 X10*3/uL) 202 (Ref Range: 160-400 X10*3/uL) Mean Platelet Volume 11.0 (Ref Range: 9.4-12.4 fL) 10.6 (Ref Range: 9.4-12.4 fL) 10.8 (Ref Range: 9.4-12.4 fL) Neutrophils Percent Auto 59.7 (Ref Range: 45-73 %) 56.5 (Ref Range: 45-73 %) 58.3 (Ref Range: 45-73 %) Imm Gran Pct Auto 0.3 (Ref Range: 0.0-0.4 %) 0.2 (Ref Range: 0.0-0.4 %) 0.2 (Ref Range: 0.0-0.4 %) Lymphocytes Percent Auto 25.5 (Ref Range: 20-40 %) 27.2 (Ref Range: 20-40 %) 26.8 (Ref Range: 20-40 %) Monocytes Percent Auto 8.8 (Ref Range: 2-11 %) 9.2 (Ref Range: 2-11 %) 8.8 (Ref Range: 2-11 %) Eosinophils Percent Auto 4.5 H (Ref Range: 0-4 %) 5.7 H (Ref Range: 0-4 %) 5.0 H (Ref Range: 0-4 %) Basophils Percent Auto 1.2 (Ref Range: 0-2 %) 1.2 (Ref Range: 0-2 %) 0.9 (Ref Range: 0-2 %) NRBC Pct Auto 0.0 (Ref Range: 0.0-0.2 /100WBC) 0.0 (Ref Range: 0.0-0.2 /100WBC) 0.0 (Ref Range: 0.0-0.2 /100WBC) Neutrophils Absolute Auto 3.6 (Ref Range: 2.0-8.3 x10*3/uL) 3.4 (Ref Range: 2.0-8.3 x10*3/uL) 3.2 (Ref Range: 2.0-8.3 x10*3/uL) Imm Gran Abs Auto 0.02 (Ref Range: 0.00-0.03 X10*3/uL) 0.01 (Ref Range: 0.00-0.03 X10*3/uL) 0.01 (Ref Range: 0.00-0.03 X10*3/uL) Lymphocytes Absolute Auto 1.5 (Ref Range: 1.2-4.9 X10*3/uL) 1.6 (Ref Range: 1.2-4.9 X10*3/uL) 1.5 (Ref Range: 1.2-4.9 X10*3/uL) Monocytes Absolute Auto 0.5 (Ref Range: 0.1-1.2 X10*3/uL) 0.6 (Ref Range: 0.1-1.2 X10*3/uL) 0.5 (Ref Range: 0.1-1.2 X10*3/uL) Eosinophils Absolute Auto 0.3 (Ref Range: 0.0-0.4 X10*3/uL) 0.3 (Ref Range: 0.0-0.4 X10*3/uL) 0.3 (Ref Range: 0.0-0.4 X10*3/uL) Basophils Absolute Auto 0.1 (Ref Range: 0.0-0.2 X10*3/uL) 0.1 (Ref Range: 0.0-0.2 X10*3/uL) 0.1 (Ref Range: 0.0-0.2 X10*3/uL) NRBC Abs Auto 0.000 (Ref Range: 0.0-0.012 X10*3/uL) 0.000 (Ref Range: 0.0-0.012 X10*3/uL) 0.000 (Ref Range: 0.0-0.012 X10*3/uL) * Lab:Hemoglobin A1c * Order Date 01/20/2024 09/24/2023 06/06/2023 Hemoglobin A1c % 8.5 H (Ref Range: <6.0 %) 7.5 H (Ref Range: <6.0 %) 8.5 H (Ref Range: <6.0 %) Estimated Average Glucose 197 (Ref Range: mg/dL) 169 (Ref Range: mg/dL) 197 (Ref Range: mg/dL) * Examination: G eneral Examination: GENERAL APPEARANCE: p leasant, well nourished, well developed, in no acute distress, calm and relaxed , obese , man. HEAD: a traumatic, normocephalic. EYES: e randee, perrla, anicteric, conjugate. EARS: n ormal. NOSE: s eptum intact. ORAL CAVITY: n ormal, unremarkable. NECK/THYROID: n o jugular venous distention, no carotid bruit, thyroid normal. LYMPH NODES: n o enlarged lymph nodes,spleen normal. SKIN: n o suspicious lesions, anicteric. HEART: n o clicks, gallops, murmurs, or rubs, regular rhythm, S1, S2 normal, no s3, or vascular bruits. LUNGS: c lear to auscultation . BREASTS: no masses palpable bilaterally. ABDOMEN: b owel sounds normal, no ascites, no organomegaly, no mass , centripital obesity. RECTAL EXAM: n ot examined. MUSCULOSKELETAL: e xtremities unremarkable, no clubbing, cyanosis or edema. PERIPHERAL PULSES: n ormal. NEUROLOGIC: a lert and oriented, cranial nerves 2-12 grossly intact, deep tendon reflexes 2+ symmetrical, motor strength normal upper and lower extremities, sensory exam intact. PSYCH: a lert, oriented. Assessment: * Assessment: 1. T ype 2 diabetes mellitus without complication, without long-term current use of insulin - E11.9 (Primary), His hemoglobin A1c has increased to 8.5. I increased the metformin dose to one thousand milligrams twice a day. 2 . H yperlipidemia, unspecified hyperlipidemia type - E78.5, His lipids are currently stable and no change in his medication was made. 3 . O mike (BMI 30-39.9) - E66.9, We have reviewed his weight loss strategy and is diabetic diet. We made a plan to lose weight at a rate of one half of a pound per week. 4 . E ssential hypertension - I10, His blood pressure is slightly high at 140/80. Will be rechecked again in the near future. We discussed diet and nutrition and the elements of sodium restriction and weight loss in great detail today. 5. B enign prostatic hyperplasia with lower urinary tract symptoms - N40.1, He is rising from sleep once or twice a night to urinate. We have discussed lifestyle modification as a way to reduce this. Plan: * Treatment: 2. H yperlipidemia, unspecified hyperlipidemia type L AB: PROFILE, FASTING (COMPREHENSIVE METABOLIC) L AB: CBC WITH AUTO DIFF L AB: Lipid Panel L AB: Microalbumin, Random L AB: Hemoglobin A1c 3. O besity (BMI 30-39.9) L AB: PROFILE, FASTING (COMPREHENSIVE METABOLIC) L AB: CBC WITH AUTO DIFF L AB: Lipid Panel L AB: Microalbumin, Random L AB: Hemoglobin A1c 4. O thers Continue NIFEdipine ER Tablet Extended Release 24 Hour, 30 MG, TAKE 1 TABLET BY MOUTH EVERY DAY ON EMPTY STOMACH; C ontinue Simvastatin Tablet, 20 MG, TAKE 1 TABLET BY MOUTH EVERY DAY IN THE EVENING; C ontinue Paxlovid (300/100) Tablet Therapy Pack, 20 x 150 MG & 10 x 100MG, as directed, Orally, twice a day; C ontinue Atenolol Tablet, 100 MG, TAKE 1 TABLET BY MOUTH EVERY DAY; C ontinue Sildenafil Citrate Tablet, 50 MG, TAKE 1 TABLET BY MOUTH EVERY DAY NEEDED; C ontinue metFORMIN HCl Tablet, 500 MG, TAKE 1 TABLET BY MOUTH TWICE A DAY WITH MEALS FOR 90 DAYS; C ontinue Lisinopril Tablet, 40 MG, TAKE 1 TABLET BY MOUTH EVERY DAY. * Procedure Codes: * Preventive Medicine: Counseling: C are goal follow-up plan: Counseling for abnormal BMI given Y es Above Normal BMI Follow-up D ietary management education, guidance, and counseling, Dietary needs education, Exercise promotion: strength training, Exercise promotion: stretching, Feeding regime, Giving encouragement to exercise, Lifestyle education regarding diet, Nutrition / feeding management, Nutrition therapy, Prescribed activity/exercise education, Prescribed diet education, Prescribed dietary intake, Special diet education, Weight monitoring , Intervention, Order not done: Medical or Other reason not done DM Care Plan: P atient Lifestyle Goals P atient wants to be able to manage diabetes without too much effort. T reatment Goals B lood Sugars less than < 115, HbA1C < 7.0. B arriers n o barriers. S elf-Managment Goals W ork on weight loss, with a goal of losing 1 lb per week, Increase exercise to 3 times a week for 30 mins. * Follow Up: 3 Months (Reason: OV) * Images: * Sign off status: Completed true * Provider: Poppy Ortiz MD Date: 0 01/27/2024 Generated for Heriberto gill/Candida/eTjo annsmitting on: 1 06:30 AM EDT History and Physical Notes * HPI (History of Present Illness) Category Sub-Category Detail Notes COVID-19 Screening Questions Have you had any new onset fever, chills, cough, congestion, sore throat, shortness of breath, muscle aches?: No Have you been exposed to the virus withi n the last 10 days?: No Have you travelled internationally in [facility] last 10 days?: No Have you been exposed to COVID-19 in the past?: Yes Examination Category Sub-Category Detail Notes General Examination GENERAL APPEARANCE: pleasant , well nourished, well developed, in no acute distress, calm and relaxed , obese , man HEAD: atraumatic, normocep halic EYES: eomi, perrla, anicte karla, conjugate EARS: normal NOSE: septum intact NECK/THYROID: no jugular venous di stention, no carotid bruit, thyroid normal HEART: no clicks, gallops, murmurs, or rubs, regular rhythm, S1, S2 normal, no s3, or vascular bruits LUNGS: clear to auscultatio n ABDOMEN: bowel sounds normal, no ascites, no organomegaly, no mass , centripital obesity NEUROLOGIC: alert and oriented, cranial nerves 2-12 grossly intact, deep tendon reflexes 2+ symmetrical, motor strength normal upper and lower extremities, sensory exam intact SKIN: no suspicious lesion s, anicteric PERIPHERAL PULSES: normal BREASTS: no masses palpable b ilaterally MUSCULOSKELETAL: extremities unremark able, no clubbing, cyanosis or edema LYMPH NODES: no enlarged lymph no joellen,spleen normal RECTAL EXAM: not examined PSYCH: alert, oriented ORAL CAVITY: normal, unremarkable
--- OUTSIDE RECORDS SUMMARY | 2024-05-03 05:00 | XMS_ITS ---
Author Organization Ravinder Ortiz III, MD Address [address] [place] [address] [place] [address] Care Team Providers Care Bobtail Driver Name Role Phone Dr. Ravinder Ortiz III Primary Care Provider [phone] Allergies Allergen (clinical drug ingredient) Drug/Non Drug Allergy documented on EMR Reaction Allergy Type Onset Date Status No Known Drug Allergy Unknown Drug Allergy Active REASON FOR VISIT Diabetes, Hyperlipidemia, Hypertension, Obesity Medications Medication SIG (Take, Route, Frequency, Duration) Notes Start Date End Date Status Sildenafil Citrate 50 MG TAKE 1 TABLET B Y MOUTH EVERY DAY NEEDED Active metFORMIN HCl 500 MG TAKE 1 TABLET BY MO UTH TWICE A DAY WITH MEALS FOR 90 DAYS Active Lisinopril 40 MG TAKE 1 TABLET BY BRAD TH EVERY DAY Active metFORMIN HCl 1000 MG 1 tablet with a me al Orally twice a day 01/27/2024 Active Atenolol 100 MG TAKE 1 TABLET BY BRAD TH EVERY DAY Active Tamsulosin HCl 0.4 MG 2 capsules 30 vera savanah after the same meal each day Orally Once a day 05/04/2019 Active Loratadine 10 MG 1 tablet Orally Once a day Active oxyBUTYnin Chloride ER 10 MG 1 tablet Orally Once a day Active Paxlovid (300/100) 20 x 150 MG & 10 x 100MG as directed Orally twice a day 07/07/2023 Active NIFEdipine ER 30 MG TAKE 1 TABLET BY BRAD TH EVERY DAY ON EMPTY STOMACH Active Simvastatin 20 MG TAKE 1 TABLET BY BRAD TH EVERY DAY IN THE EVENING Active Social History Tobacco Use: Social History Observation Description Date Details (start date - stop date) Never Smoker NA - NA Sex Assigned At : Social History Observation Description Sex Assigned At Male Tobacco Use/Smoking Question Answer Notes Patient is a nonsmoker Additional Findings: Tobacco Non-User Aggressive non-smoker Vital Signs Temperature 97.3 degrees Fahrenheit 05/03/20 24 Blood pressure systolic 139 mm Hg 05/03/20 24 Blood pressure diastolic 75 mm Hg 024 Heart Rate 62 /min 05/03/2024 Height 65 in 05/03/2024 Weight 193 lbs 05/03/2024 BMI 32.11 kg/m2 05/03/2024 Encounters Encounter Location Date Provider Diagnosis Ravinder Ortiz III, MD [address] [place] [address] [place] [address] 05/03/2024 Ravinder Ortiz Type 2 diabetes jordy itus without complication, without long-term current use of insulin E11.9 ; Hyperlipidemia, unspecified hyperlipidemia type E78.5 ; Obesity (BMI 30-39.9) E66.9 and Benign prostatic hyperplasia with lower urinary tract symptoms N40.1 Assessments Encounter Date Diagnosis (ICD Code) Assessment Notes Treat ment Notes Treatment Clinical Notes 05/03/2024 Type 2 diabetes mellitus without complication, without long-term current use of insulin (ICD-10 - E11.9) His hemoglobin A1c has decreased to 7.4.He was continued on the metformin dose of one thousand milligrams twice a day. 05/03/2024 Hyperlipidemia, unspecified hyperlipidemia type (ICD-10 - E78.5) His lipids are currently stable. No change in his medication was made. I have encouraged aggrressive weight loss and adherence to a diabetic weight reduction diet. 05/03/2024 Obesity (BMI 30-39.9 ) (ICD-10 - E66.9) His body mass index is 32 and his weight has been stable. We reviewed his weight loss strategy in detail today. 05/03/2024 Benign prostatic hyperplasia with lower urinary tract symptoms (ICD-10 - N40.1) He rises from sleep on the average of once a night to urinate. We discussed lifestyle modifications he could make reduce this. Plan Of Treatment Medication Medication Name Sig Start Date Stop Date Notes Sildenafil Citrate 50 MG TAKE 1 TABLET B Y MOUTH EVERY DAY NEEDED metFORMIN HCl 500 MG TAKE 1 TABLET BY MO UTH TWICE A DAY WITH MEALS FOR 90 DAYS Lisinopril 40 MG TAKE 1 TABLET BY BRAD TH EVERY DAY metFORMIN HCl 1000 MG 1 tablet with a me al Orally twice a day 01/27/2024 Atenolol 100 MG TAKE 1 TABLET BY BRAD TH EVERY DAY Tamsulosin HCl 0.4 MG 2 capsules 30 vera savanah after the same meal each day Orally Once a day 05/04/2019 Loratadine 10 MG 1 tablet Orally Once a day oxyBUTYnin Chloride ER 10 MG 1 tablet Orally Once a day Paxlovid (300/100) 20 x 150 MG & 10 x 100MG as directed Orally twice a day 07/07/2023 NIFEdipine ER 30 MG TAKE 1 TABLET BY BRAD TH EVERY DAY ON EMPTY STOMACH Simvastatin 20 MG TAKE 1 TABLET BY BRAD TH EVERY DAY IN THE EVENING Pending Test Test Name Order Date PROFILE, FASTING (COMPREHENSIVE METABOLI C) 05/03/2024 PSA, TOTAL 05/03/2024 CBC WITH AUTO DIFF 05/03/2024 Lipid Panel 05/03/2024 Microalbumin, Random 05/03/2024 Hemoglobin A1c 05/03/2024 Next Appt Details Follow Up: As Scheduled, [facility] visit in September, Reason: OV, Regular check-up Provider Name:Ravinder Ortiz , 05/02/2025 09:15:00 AM, [address] [place] [address] [address], [place], [id number], Provider Name:Ravinder Ortiz , 10/03/2025 10:00:00 AM, [address] [place] [address] [address], [place], [phone], Progress Notes * YAMILEX IBARRADOB: 5 (68 yo M)Acc No.[id number]:05/03/2024 Progress Notes Patient: Gerard CADETYAMILEX Provider: Poppy Ortiz MD :1955 A ge:68 Y S ex:Male Date:05/03/2024 Address:[address] [place] [address] [id number] Subjective: * Chief Complaints: * D iabetesHyperlipidemiaHypertensionObesity * HPI: C OVID-19 Screening: Questions H ave you experienced fever, chills, [...] COVID-19 in the past? Y es * : The 68-year-old male patient came in for a regular scheduled visit. He has been managing his diabetes with medication, specifically metformin, and has been adhering to his medication regimen. He reported getting up once a night to urinate. He also mentioned an incident where he had an irritation in his eye, which was treated with erythromycin. The patient's weight has remained stable, but the doctor advised him to lose some weight to better manage his diabetes. His blood sugar was reported to be 178 and his A1C was 7.4, an improvement from the previous 8.5. All other vitals and lab results were reported to be normal. Blood Sugar Level is 178. * ROS: G eneral/Constitutional: pain o nly normal aches and pains. C hills d enies.?Fatigue a dmits. F ever d enies. E NT: Decreased hearing d enies. R espiratory: Cough d enies. C ardiovascular: [...] have been noted. G enitourinary: Frequent urination o nce a night. M usculoskeletal: Muscle aches d [...] Surgical History: a ppendectomy 1975hernia removal 1999colonoscopy,, [facility] [place]No history * Hospitalization/Major Diagno stic Procedure: N o history * Family History: F ather: , diagnosed [...] dditional Findings: Tobacco Non-User A ggressive non-smoker Inés hernández was born in [place] and raised at [facility] near [facility]. He has been to [place] for 44 years. 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 * Medications: T akingNIFEdipine ER 30 MG Tablet Extended Release 24 Hour TAKE 1 TABLET BY MOUTH EVERY DAY ON EMPTY STOMACH Simvastatin 20 MG Tablet TAKE 1 TABLET BY MOUTH EVERY DAY IN THE EVENING Atenolol 100 MG Tablet TAKE 1 TABLET BY MOUTH EVERY DAY Tamsulosin HCl 0.4 MG Capsule 2 capsules 30 minutes after the same meal each day Orally Once a day Loratadine 10 MG Tablet 1 tablet Orally Once a day oxyBUTYnin Chloride ER 10 MG Tablet Extended Release 24 Hour 1 tablet Orally Once a day Sildenafil Citrate 50 MG Tablet TAKE 1 TABLET BY MOUTH EVERY DAY NEEDED Lisinopril 40 MG Tablet TAKE 1 TABLET BY MOUTH EVERY DAY metFORMIN HCl 1000 MG Tablet 1 tablet with a meal Orally twice a day Taking NIFEdipine ER 30 MG Tablet Extended Release 24 Hour TAKE 1 TABLET BY MOUTH EVERY DAY ON EMPTY STOMACH Taking Simvastatin 20 MG Tablet TAKE 1 TABLET BY MOUTH EVERY DAY IN THE EVENING Taking Atenolol 100 MG Tablet TAKE 1 TABLET BY MOUTH EVERY DAY Taking Tamsulosin HCl 0.4 MG Capsule 2 capsules 30 minutes after the same meal each day Orally Once a day Taking Loratadine 10 MG Tablet 1 tablet Orally Once a day Taking oxyBUTYnin Chloride ER 10 MG Tablet Extended Release 24 Hour 1 tablet Orally Once a day Taking Sildenafil Citrate 50 MG Tablet TAKE 1 TABLET BY MOUTH EVERY DAY NEEDED Taking Lisinopril 40 MG Tablet TAKE 1 TABLET BY MOUTH EVERY DAY Taking metFORMIN HCl 1000 MG Tablet 1 tablet with a meal Orally twice a day DiscontinuedPaxlovid (300/100) 20 x 150 MG & 10 x 100MG Tablet Therapy Pack as directed Orally twice a day metFORMIN HCl 500 MG Tablet TAKE 1 TABLET BY MOUTH TWICE A DAY WITH MEALS FOR 90 DAYS Medication List reviewed and reconciled with the patientDiscontinued Paxlovid (300/100) 20 x 150 MG & 10 x 100MG Tablet Therapy Pack as directed Orally twice a day Discontinued metFORMIN HCl 500 MG Tablet TAKE 1 TABLET BY MOUTH TWICE A DAY WITH MEALS FOR 90 DAYS Medication List reviewed and reconciled with the patient * Allergies: N o Known Drug Allergyno[Allergies Verified] Objective: * Vitals: H t: 65, Wt:193, BMI:32.11, BP:139/75, HR:62, Temp:97.3, Wt-k.54. * P ast Orders: Lab:[facility] Almodovar. Nellie l Fast * Collection Date 04/27/2024 01/20/2024 09/24/2023 Collection Time 06:33 AM 06:41 AM 07:09 AM Order Date 04/27/2024 01/20/2024 09/24/2023 Sodium 142 (Ref Range: 135-145 mmol/L) 138 (Ref Range: 135-145 mmol/L) 142 (Ref Range: 135-145 mmol/L) Bilirubin Total 1.2 H (Ref Range: 0.0-1.0 mg/dL) 0.9 (Ref Range: 0.0-1.0 mg/dL) 1.1 H (Ref Range: 0.0-1.0 mg/dL) Aspartate Amino Transferase 14 (Ref Range: 5-37 U/L) 12 (Ref Range: 5-37 U/L) 11 (Ref Range: 5-37 U/L) Alanine Aminotransferase 13 (Ref Range: 0-40 U/L) 13 (Ref Range: 0-40 U/L) 13 (Ref Range: 0-40 U/L) Total Protein 6.5 (Ref Range: 6.5-8.0 g/dL) 6.7 (Ref Range: 6.5-8.0 g/dL) 7.0 (Ref Range: 6.5-8.0 g/dL) Albumin Level 4.3 (Ref Range: 3.5-5.0 g/dL) 4.2 (Ref Range: 3.5-5.0 g/dL) 4.4 (Ref Range: 3.5-5.0 g/dL) Alkaline Phosphatase 74 (Ref Range: 39-117 U/L) 86 (Ref Range: 39-117 U/L) 85 (Ref Range: 39-117 U/L) Potassium 3.4 (Ref Range: 3.3-5.1 mmol/L) 3.4 (Ref Range: 3.3-5.1 mmol/L) 3.4 (Ref Range: 3.3-5.1 mmol/L) Chloride 108 (Ref Range: 96-108 mmol/L) 102 (Ref Range: 96-108 mmol/L) 106 (Ref Range: 96-108 mmol/L) Carbon Dioxide 26 (Ref Range: 22-29 mmol/L) 26 (Ref Range: 22-29 mmol/L) 26 (Ref Range: 22-29 mmol/L) Anion Gap 11 L (Ref Range: 12-20) 13 (Ref Range: 12-20) 13 (Ref Range: 12-20) Blood Urea Nitrogen 15 (Ref Range: 9-16 mg/dL) 10 (Ref Range: 9-16 mg/dL) 16 (Ref Range: 9-16 mg/dL) Creatinine 0.87 (Ref Range: 0.5-1.4 mg/dL) 0.86 (Ref Range: 0.5-1.4 mg/dL) 0.90 (Ref Range: 0.5-1.4 mg/dL) Estimated Glomerular Filt Rate > 60 > 60 > 60 Glucose Fasting 178 H (Ref Range: 60-99 mg/dL) 227 H (Ref Range: 60-99 mg/dL) 183 H (Ref Range: 60-99 mg/dL) Calcium 9.1 (Ref Range: 8.4-10.2 mg/dL) 9.2 (Ref Range: 8.4-10.2 mg/dL) 9.4 (Ref Range: 8.4-10.2 mg/dL) * Lab:Lipid Panel * Collection Date 04/27/2024 01/20/2024 09/24/2023 Collection Time 06:33 AM 06:41 AM 07:09 AM Order Date 04/27/2024 01/20/2024 09/24/2023 Triglycerides 61 (Ref Range: <150 mg/dL) 106 (Ref Range: <150 mg/dL) 90 (Ref Range: <150 mg/dL) Cholesterol 134 (Ref Range: <200 mg/dL) 148 (Ref Range: <200 mg/dL) 154 (Ref Range: <200 mg/dL) LDL Cholesterol Calculated 76 (Ref Range: <100 mg/dL) 81 (Ref Range: <100 mg/dL) 91 (Ref Range: <100 mg/dL) HDL Cholesterol 46 (Ref Range: >40 mg/dL) 46 (Ref Range: >40 mg/dL) 45 (Ref Range: >40 mg/dL) * Lab:Microalbumin, Random * Collection Date 04/27/2024 01/20/2024 09/24/2023 Collection Time 06:32 AM 06:41 AM 07:09 AM Order Date 04/27/2024 01/20/2024 09/24/2023 Creatinine Urine 149.09 (Ref Range: mg/dL) 50.68 (Ref Range: mg/dL) 114.39 (Ref Range: mg/dL) Microalbumin Urine 28.0 (Ref Range: mg/L) 13.0 (Ref Range: mg/L) 28.0 (Ref Range: mg/L) Microalbum Creatinine Ratio Ur 18.7 (Ref Range: <30 ug/mg cr) 25.6 (Ref Range: <30 ug/mg cr) 24.4 (Ref Range: <30 ug/mg cr) * Lab:Hemoglobin A1c * Collection Date 04/27/2024 01/20/2024 09/24/2023 Collection Time 06:33 AM 06:41 AM 07:09 AM Order Date 04/27/2024 01/20/2024 09/24/2023 Hemoglobin A1c % 7.4 H (Ref Range: <6.0 %) 8.5 H (Ref Range: <6.0 %) 7.5 H (Ref Range: <6.0 %) Estimated Average Glucose 166 (Ref Range: mg/dL) 197 (Ref Range: mg/dL) 169 (Ref Range: mg/dL) * Lab:Complete Blood Count Aut o Diff * Collection Date 04/27/2024 01/20/2024 09/24/2023 Collection Time 06:33 AM 06:41 AM 07:09 AM Order Date 04/27/2024 01/20/2024 09/24/2023 White Blood Count 5.2 (Ref Range: 4.8-10.8 X10*3/uL) 6.1 (Ref Range: 4.8-10.8 X10*3/uL) 6.0 (Ref Range: 4.8-10.8 X10*3/uL) Red Blood Count 4.63 (Ref Range: 4.60-5.80 X10*6/uL) 4.92 (Ref Range: 4.60-5.80 X10*6/uL) 5.08 (Ref Range: 4.60-5.80 X10*6/uL) Hemoglobin 14.4 (Ref Range: 14.0-18.0 g/dl) 15.1 (Ref Range: 14.0-18.0 g/dl) 15.0 (Ref Range: 14.0-18.0 g/dl) Hematocrit 41.0 L (Ref Range: 42.0-52.0 %) 43.6 (Ref Range: 42.0-52.0 %) 44.6 (Ref Range: 42.0-52.0 %) Mean Corpuscular Volume 88.6 (Ref Range: 80.0-98.0 fL) 88.6 (Ref Range: 80.0-98.0 fL) 87.8 (Ref Range: 80.0-98.0 fL) Mean Corpuscular Hemoglobin 31.1 (Ref Range: 27.0-33.0 pg) 30.7 (Ref Range: 27.0-33.0 pg) 29.5 (Ref Range: 27.0-33.0 pg) Mean Corpuscular HGB Conc 35.1 (Ref Range: 31.0-36.0 g/dl) 34.6 (Ref Range: 31.0-36.0 g/dl) 33.6 (Ref Range: 31.0-36.0 g/dl) Red Cell Distribution Width 12.4 (Ref Range: 11.0-16.0 %) 12.7 (Ref Range: 11.0-16.0 %) 12.7 (Ref Range: 11.0-16.0 %) Platelet Count 212 (Ref Range: 160-400 X10*3/uL) 211 (Ref Range: 160-400 X10*3/uL) 219 (Ref Range: 160-400 X10*3/uL) Mean Platelet Volume 10.7 (Ref Range: 9.4-12.4 fL) 11.0 (Ref Range: 9.4-12.4 fL) 10.6 (Ref Range: 9.4-12.4 fL) Neutrophils Percent Auto 51.1 (Ref Range: 45-73 %) 59.7 (Ref Range: 45-73 %) 56.5 (Ref Range: 45-73 %) Imm Gran Pct Auto 0.2 (Ref Range: 0.0-0.4 %) 0.3 (Ref Range: 0.0-0.4 %) 0.2 (Ref Range: 0.0-0.4 %) Lymphocytes Percent Auto 29.9 (Ref Range: 20-40 %) 25.5 (Ref Range: 20-40 %) 27.2 (Ref Range: 20-40 %) Monocytes Percent Auto 9.0 (Ref Range: 2-11 %) 8.8 (Ref Range: 2-11 %) 9.2 (Ref Range: 2-11 %) Eosinophils Percent Auto 8.6 H (Ref Range: 0-4 %) 4.5 H (Ref Range: 0-4 %) 5.7 H (Ref Range: 0-4 %) Basophils Percent Auto 1.2 (Ref Range: 0-2 %) 1.2 (Ref Range: 0-2 %) 1.2 (Ref Range: 0-2 %) NRBC Pct Auto 0.0 (Ref Range: 0.0-0.2 /100WBC) 0.0 (Ref Range: 0.0-0.2 /100WBC) 0.0 (Ref Range: 0.0-0.2 /100WBC) Neutrophils Absolute Auto 2.7 (Ref Range: 2.0-8.3 x10*3/uL) 3.6 (Ref Range: 2.0-8.3 x10*3/uL) 3.4 (Ref Range: 2.0-8.3 x10*3/uL) Imm Gran Abs Auto 0.01 (Ref Range: 0.00-0.03 X10*3/uL) 0.02 (Ref Range: 0.00-0.03 X10*3/uL) 0.01 (Ref Range: 0.00-0.03 X10*3/uL) Lymphocytes Absolute Auto 1.6 (Ref Range: 1.2-4.9 X10*3/uL) 1.5 (Ref Range: 1.2-4.9 X10*3/uL) 1.6 (Ref Range: 1.2-4.9 X10*3/uL) Monocytes Absolute Auto 0.5 (Ref Range: 0.1-1.2 X10*3/uL) 0.5 (Ref Range: 0.1-1.2 X10*3/uL) 0.6 (Ref Range: 0.1-1.2 X10*3/uL) Eosinophils Absolute Auto 0.5 H (Ref Range: 0.0-0.4 X10*3/uL) 0.3 (Ref Range: 0.0-0.4 X10*3/uL) 0.3 (Ref Range: 0.0-0.4 X10*3/uL) Basophils Absolute Auto 0.1 (Ref Range: 0.0-0.2 X10*3/uL) 0.1 (Ref Range: 0.0-0.2 X10*3/uL) 0.1 (Ref Range: 0.0-0.2 X10*3/uL) NRBC Abs Auto 0.000 (Ref Range: 0.0-0.012 X10*3/uL) 0.000 (Ref Range: 0.0-0.012 X10*3/uL) 0.000 (Ref Range: 0.0-0.012 X10*3/uL) * Examination: G eneral Examination: GENERAL APPEARANCE: p leasant, well nourished, well developed, in no acute distress, calm and relaxed, obese, man. HEAD: a traumatic, normocephalic. EYES: e [...] sounds normal, no ascites, no organomegaly, no mass, centripital obesity. RECTAL EXAM: n ot examined. [...] long-term current use of insulin - E11.9 (Primary) N otes :His hemoglobin A1c has decreased to 7.4.He was continued on the metformin dose of one thousand milligrams twice a day. 2 . H yperlipidemia, unspecified hyperlipidemia type - E78.5 N otes :His lipids are currently stable. No change in his medication was made. I have encouraged aggrressive weight loss and adherence to a diabetic weight reduction diet. 3 . O besity (BMI 30-39.9) - E66.9 N otes :His body mass index is 32 and his weight has been stable. We reviewed his weight loss strategy in detail today. 4 . B enign prostatic hyperplasia with lower urinary tract symptoms - N40.1? Notes :He rises from sleep on the average of once a night to urinate. We discussed lifestyle modifications he could make reduce this. Plan: * Treatment: 2. H yperlipidemia, unspecified hyperlipidemia type L AB: PROFILE, FASTING (COMPREHENSIVE METABOLIC) L AB: PSA, TOTAL L AB: CBC WITH AUTO DIFF L AB: Lipid Panel L AB: Microalbumin, Random L AB: Hemoglobin A1c 3. O besity (BMI 30-39.9) L AB: PROFILE, FASTING (COMPREHENSIVE METABOLIC) L AB: PSA, TOTAL L AB: CBC WITH AUTO DIFF L AB: Lipid Panel L AB: Microalbumin, Random L AB: Hemoglobin A1c 4. B enign prostatic hyperplasia with lower urinary tract symptoms L AB: PROFILE, FASTING (COMPREHENSIVE METABOLIC) L AB: PSA, TOTAL L AB: CBC WITH AUTO DIFF L AB: Lipid Panel L AB: Microalbumin, Random L AB: Hemoglobin A1c 5. O thers Continue NIFEdipine ER Tablet Extended [...] Goals B lood Sugars less than < 115.? B arriers n o barriers. S elf-Managment Goals W ork on weight loss, with a goal of losing 1 lb per week. * Follow Up: A s Scheduled, Annual visit in September (Reason: OV, Regular check-up) * Images: * Sign off status: Completed true * Provider: Poppy Ortiz MD Date: Generated for Heriberto gill/Candida/eTransmitting on: 06:30 AM EDT History and Physical Notes * HPI (History of Present Illness) Category Sub-Category Detail Notes COVID-19 Screening Questions Have you had any new onset fever, chills, cough, congestion, sore throat, shortness of breath, muscle aches?: No Have you been exposed to the virus withi n the last 10 days?: No Have you travelled internationally in [facility] last 10 days?: No Have you been exposed to COVID-19 in the past?: Yes Examination Category Sub-Category Detail Notes General Examination GENERAL APPEARANCE: pleasant , well nourished, well developed, in no acute distress, calm and relaxed, obese, man HEAD: atraumatic, normocep halic EYES: eomi, perrla, anicte karla, conjugate EARS: normal NOSE: septum intact NECK/THYROID: no jugular venous di stention, no carotid bruit, thyroid normal HEART: no clicks, gallops, murmurs, or rubs, regular rhythm, S1, S2 normal, no s3, or vascular bruits LUNGS: clear to auscultatio n ABDOMEN: bowel sounds normal, no ascites, no organomegaly, no mass, centripital obesity NEUROLOGIC: alert and oriented, cranial [...]
--- OUTSIDE RECORDS SUMMARY | 2024-10-01 06:00 | XMS_ITS ---
Author Organization Ravinder Ortiz III, MD Address [address] [place] [address] [place] [address] Care Team Providers Care Technical Artist Name Role Phone Dr. Ravinder Ortiz III Primary Care Provider [phone] Allergies Allergen (clinical drug ingredient) Drug/Non Drug Allergy documented on EMR Reaction Allergy Type Onset Date Status No Known Drug Allergy Unknown Drug Allergy Active REASON FOR VISIT Annual Exam Medications Medication SIG (Take, Route, Frequency, Duration) Notes Start Date End Date Status NIFEdipine ER 30 MG TAKE 1 TABLET BY BRAD TH EVERY DAY ON EMPTY STOMACH Active Atenolol 100 MG TAKE 1 TABLET BY BRAD TH EVERY DAY Active Lisinopril 40 MG TAKE 1 TABLET BY BRAD TH EVERY DAY Active Simvastatin 20 MG 1 Tablet Orally Ever y day in the evening Active metFORMIN HCl 1000 MG 1 tablet with a me al Orally twice a day 01/27/2024 Active Sildenafil Citrate 50 MG TAKE 1 TABLET B Y MOUTH EVERY DAY NEEDED Active Loratadine 10 MG 1 tablet Orally Once a day Active oxyBUTYnin Chloride ER 10 MG 1 tablet Orally Once a day Active Tamsulosin HCl 0.4 MG 2 capsules 30 vera savanah after the same meal each day Orally Once a day 05/04/2019 Active Social History Tobacco Use: Social History Observation Description Date Details (start date - stop date) Never Smoker NA - NA Sex Assigned At : Social History Observation Description Sex Assigned At Male Tobacco Use/Smoking Question Answer Notes Patient is a nonsmoker Additional Findings: Tobacco Non-User Aggressive non-smoker Vital Signs Temperature 99.1 degrees Fahrenheit 10/02/19 25 Blood pressure systolic 138 mm Hg 10/02/19 25 Blood pressure diastolic 83 mm Hg 025 Heart Rate 68 /min 10/01/2024 Height 65 in 10/01/2024 Weight 194 lbs 10/01/2024 BMI 32.28 kg/m2 10/01/2024 Encounters Encounter Location Date Provider Diagnosis Ravinder Ortiz III, MD [address] [place] [address] DR [facility] [place] [phone] 10/01/2024 Ravinder Ortiz Type 2 diabetes jordy itus without complication, without long-term current use of insulin E11.9 ; Hyperlipidemia, unspecified hyperlipidemia type E78.5 ; Essential hypertension I10 ; Obesity (BMI 30-39.9) E66.9 and Benign prostatic hyperplasia with lower urinary tract symptoms N40.1 Assessments Encounter Date Diagnosis (ICD Code) Assessment Notes Treat ment Notes Treatment Clinical Notes 10/01/2024 Type 2 diabetes mellitus without complication, without long-term current use of insulin (ICD-10 - E11.9) His hemoglobin A1c has increased to 8.3 and his fasting glucose was over 200. He admits to many dietary indiscretions. His medications will be adjusted. Short follow-up was arranged. We discussed diet and nutrition at length today. 10/01/2024 Hyperlipidemia, unspecified hyperlipidemia type (ICD-10 - E78.5) The current fasting lipid profile was good control of his lipids and compliance with his medication. 10/01/2024 Essential hypertension (ICD-10 - I10) His blood pressure is currently stable and no change in his medication was made. I strongly recommended aggressive weight loss and sodium restriction 10/01/2024 Obesity (BMI 30-39.9 ) (ICD-10 - E66.9) He has gained 1 pound. We discussed diet and nutrition and the importance of weight loss. 10/01/2024 Benign prostatic hyperplasia with lower urinary tract symptoms (ICD-10 - N40.1) He is experiencing nocturia once a night. We have discussed lifestyle modifications he could make to reduce nocturia. Plan Of Treatment Medication Medication Name Sig Start Date Stop Date Notes NIFEdipine ER 30 MG TAKE 1 TABLET BY BRAD TH EVERY DAY ON EMPTY STOMACH Atenolol 100 MG TAKE 1 TABLET BY BRAD TH EVERY DAY Lisinopril 40 MG TAKE 1 TABLET BY BRAD TH EVERY DAY Simvastatin 20 MG 1 Tablet Orally Ever y day in the evening metFORMIN HCl 1000 MG 1 tablet with a me al Orally twice a day 01/27/2024 Sildenafil Citrate 50 MG TAKE 1 TABLET B Y MOUTH EVERY DAY NEEDED Loratadine 10 MG 1 tablet Orally Once a day oxyBUTYnin Chloride ER 10 MG 1 tablet Orally Once a day Tamsulosin HCl 0.4 MG 2 capsules 30 vera savanah after the same meal each day Orally Once a day 05/04/2019 Pending Test Test Name Order Date PROFILE, FASTING (COMPREHENSIVE METABOLI C) 10/01/2024 PSA, TOTAL 10/01/2024 CBC w DIFF 10/01/2024 Lipid Panel 10/01/2024 Microalbumin, Random 10/01/2024 Next Appt Details Follow Up: 4 Months, Reason: OV Provider Name:Ravinder Ortiz , 05/02/2025 09:15:00 AM, [address] [place] [address] [address], [place], [id number], Provider Name:Ravinder Ortiz , 10/03/2025 10:00:00 AM, [address] [place] [address] [address], [place], [phone], Progress Notes * YAMILEX IBARRADOB: (68 yo M)Acc No.[id number]:10/01/2024 Progress Notes Patient: YAMILEX PUTNAM Provider: Poppy Ortiz MD :1955 A ge:68 Y S ex:Male Date:10/01/2024 Address:[address] [place], [place] [id number] Subjective: * Chief Complaints: * A nnual Exam * HPI: D epression Screening: He returns too the office at the age of 68 for his annual physical examination. His hemoglobin A1c has increased to 8.3. His weight is up 1 pound. His blood pressure is stable. He denies any chest pain shortness of breath joint pain or difficulty sleeping.He has been compliant with all of his medications. He has not been testing his fasting glucose. His does so every day and we made an arrangement that she would check him every week. She will report that data. His back pain is in remission. He rises from sleep once a night to urinate. Inés hernández has no other new complaints. PHQ-9 L ittle interest or pleasure in doing things?Not at all F eeling down, depressed, or hopeless N ot at all T rouble falling or staying asleep, or sleeping too much N ot at all F eeling tired or having little energy N ot at all P oor appetite or overeating N ot at all F eeling bad about yourself or that you are a failure, or have let yourself or your family down N ot at all T rouble concentrating on things, such as reading the newspaper or watching television N ot at all M oving or speaking so slowly that other people could have noticed; or the opposite, being so fidgety or restless that you have been moving around a lot more than usual N ot at all T houghts that you would be better off or of hurting yourself in some way N ot at all T otal Score 0 C OVID-19 Screening: Questions H ave you had any new onset fever, chills, cough, congestion, sore throat, shortness of breath, muscle aches? N o F all Risk Screening: Fall History H ave you had any falls with injury in the past year? N o H ave you had two or more falls in the past year? N o F all Risk Assessment: N o falls in the past year S MIGUEL Questions: SDOH Questions I n the past year have you been worried about losing your housing? N o I n the past year have you or any family members you live with been unable to get any of the following when it was really needed? Check all that apply: N one * ROS: G eneral/Constitutional: Denies C hange in appetite. D enies C hills. D enies F atigue. D enies F ever. D enies H eadache. D enies L ightheadedness. D enies S leep disturbance. D enies W eight gain. D enies W eight loss.? A llergy/Immunology: Denies B listering of skin. D enies C ongestion.?Denies C ough. D enies H mindi. D enies I tching. D enies R carmine. D enies S neezing. D enies W atery eyes. D enies W heezing. O phthalmologic: Denies B lurred vision. D enies D iminished visual acuity. D enies D ischarge. D enies D ry eye. D enies F lashes of light in the visual field. D enies F loaters in the visual field. D enies I tching and redness. D enies P ain. D enies R ed eye. D enies V ision screen. E NT: Denies B locked ear(s). D enies D ecreased hearing.?Denies D ecreased sense of smell. D enies D ifficulty swallowing. D enies D ry mouth. D enies E ar pain. D enies H earing screen. D enies N osebleed. Denies R inging in the ears. D enies S inus pain. D enies S ore throat.?Denies S wollen glands. E ndocrine: Denies C old intolerance. D enies D ifficulty sleeping. D enies D izziness. D enies E xcessive sweating. D enies E xcessive thirst. D enies F requent urination. D enies H eat intolerance. D enies I rregular menses. D enies W eakness. D enies W eight loss. R espiratory: Denies B reathing pattern. D enies C hest pain.?Denies C ough. D enies H emoptysis. D enies P ain with inspiration. D enies S hortness of breath at rest. D enies S hortness of breath with exertion. D enies?Sputum production. D enies W heezing. B reast: Denies B loody nipple discharge. D enies B reast lump. D enies B reast pain. D enies B reast swelling. D enies F ever. D enies G land swelling. D enies N ipple discharge. D enies R ed skin. D enies?Weight loss. C ardiovascular: Denies C hest pain at rest. D enies C hest pain with exertion. D enies C laudication. D enies C yanosis. D enies D ifficulty laying flat. D enies D izziness. D enies D yspnea on exertion. D enies F luid accumulation in the legs. D enies I rregular heartbeat. D enies O rthopnea. D enies P alpitations. D enies S hortness of breath. D enies W eakness. D enies?Weight gain. G astrointestinal: Denies A bdominal pain. D enies B lood in stool.?Denies C hange in bowel habits. D enies C onstipation. D enies D ecreased appetite. D enies D iarrhea. D enies D ifficulty swallowing. D enies E xposure to hepatitis. D enies H eartburn, o ccasional. D enies H ematemesis. D enies?Nausea. D enies R ectal bleeding. D enies V omiting. D enies W eight loss. H ematology: Denies B reast lump. D enies D izziness. D enies E asy bruising. D enies F ever. D enies G roin mass. D enies P rolonged bleeding. D enies R ecent transfusion. D enies S wollen glands. D enies W eakness. D enies W eight loss. W omen Only: Denies B reast lump. D enies B reast pain. D enies D ischarge from the breast. D enies H eavy bleeding during menses. D enies H ot flashes. I ncontinence d enies. D enies I rregular menses. D enies M issed periods. D enies P ainful intercourse. D enies P ainful menses. D enies V aginal bleeding between periods. D enies V aginal discharge/itching. M en Only: Denies D ifficulty initiating stream. D enies D ribbling after urination, o ccasionally. D enies H irving testicle. D enies H ernia.?Denies H ypospadias. D enies L ump in groin. D enies P enile discharge. D enies R carmine or blisters on penis. D enies S crotal pain. D enies S crotal swelling. D enies U ndescended testicle. G enitourinary: Denies A bdominal pain/swelling. D enies B lood in urine. D enies D ifficulty urinating. D enies F requent urination. D enies P ain in lower back. D enies P ainful urination. U rinary Incontinence d enies. ? M usculoskeletal: Denies C arpal tunnel. D enies J oint stiffness.?Denies L eg cramps. D enies M uscle aches. D enies P ain in shoulder(s). D enies P ainful joints. D enies S ciatica. D enies S wollen joints. D enies Trauma to arm(s). D enies T rauma to hip(s). D enies T rauma to knee(s). D enies T rauma to ankle(s). D enies W eakness. P eripheral Vascular: Denies A bsent pulses in feet. D enies A bsent pulses in hands. D enies B lanching of skin. D enies C old extremities. D enies D ecreased sensation in extremities. D enies P ain/cramping in legs after exertion. D enies P ainful extremities. D enies U lceration of feet. P odiatric: Denies A chilles pain. D enies A chilles swelling.?Denies A nkle pain. D enies A nkle swelling. D enies B all of foot pain.?Denies B ig toe pain. D enies B ig toe swelling. D enies B urning. D enies D ifficulty walking. D enies F ever. D enies F oot numbness. D enies F oot pain. D enies J oint dislocation. D enies R edness over the achilles. D enies S ole pain. D enies W ound oozing. S kin: Denies A cne. D enies B listering of skin. D enies D ry skin. D enies E czema. D enies H mindi. D enies I tching. D enies K eloid formation. D enies M ole(s). D enies P hotosensitivity. D enies R carmine. D enies R carmine on feet. D enies S aman lesions of skin/scalp. D enies S kin cancer. D enies S kin lesion(s). D enies S kin oozing. D enies S un sensitivity. N eurologic: Denies B alance difficulty. D enies C oordination.?Denies D ifficulty speaking. D enies D izziness. D enies F ainting. D enies G ait abnormality. D enies H eadache. D enies I rritability. D enies Loss of strength. D enies L oss of use of extremity. D enies L ow back pain. D enies M lilli loss. D enies P ain. D enies S eizures. D enies T ics.?Denies T ingling/Numbness. D enies T ransient loss of vision. D enies T remor. P sychiatric: Denies A nxiety. D enies A uditory/visual hallucinations. D enies D elusions. D enies D epressed mood. D enies D ifficulty sleeping. D enies E ating disorder. D enies L oss of appetite. D enies M ental or Physical abuse. D enies S tressors. D enies S ubstance abuse. D enies S uicidal thoughts. H ealth Education: Denies B lood pressure screening. D enies D iabetes screening. D enies F amily planning/safe sex teaching. D enies H ealthy weight education. D enies H epatitis vaccination. D enies I nfluenza vaccination. D enies Lipid screening. D enies P neumovax vaccination. D enies S moking cessation.? C ancer Self-Management: Denies B reast self-exam. D enies C olonoscopy.?Denies M ammogram. Jeremy spence P AP testing. D enmelissa P SA testing. D enies?Skin exam. Jeremy spence S moking cessation. D enies U se of sunscreen. * Medical History: * Surgical History: a ppendectomy 1975hernia removal 1999colonoscopy,, [facility] [place] 05/[place]No history * Hospitalization/Major Diagno stic Procedure: [...] ggressive non-smoker Inés hernández was born in [place] and raised at [facility] near [facility]. He has been to [place] for 44 years. 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 * Medications: T akingNIFEdipine ER 30 MG Tablet Extended Release 24 Hour TAKE 1 TABLET BY MOUTH EVERY DAY ON EMPTY STOMACH Tamsulosin HCl 0.4 MG Capsule 2 capsules 30 minutes after the same meal each day Orally Once a day Loratadine 10 MG Tablet 1 tablet Orally Once a day oxyBUTYnin Chloride ER 10 MG Tablet Extended Release 24 Hour 1 tablet Orally Once a day Sildenafil Citrate 50 MG Tablet TAKE 1 TABLET BY MOUTH EVERY DAY NEEDED metFORMIN HCl 1000 MG Tablet 1 tablet with a meal Orally twice a day Lisinopril 40 MG Tablet TAKE 1 TABLET BY MOUTH EVERY DAY Atenolol 100 MG Tablet TAKE 1 TABLET BY MOUTH EVERY DAY Simvastatin 20 MG Tablet 1 Tablet Orally Every day in the evening Taking NIFEdipine ER 30 MG Tablet Extended Release 24 Hour TAKE 1 TABLET BY MOUTH EVERY DAY ON EMPTY STOMACH Taking Tamsulosin HCl 0.4 MG Capsule 2 [...] MOUTH EVERY DAY NEEDED Taking metFORMIN HCl 1000 MG Tablet 1 tablet with a meal Orally twice a day Taking Lisinopril 40 MG Tablet TAKE 1 TABLET BY MOUTH EVERY DAY Taking Atenolol 100 MG Tablet TAKE 1 TABLET BY MOUTH EVERY DAY Taking Simvastatin 20 MG Tablet 1 Tablet Orally Every day in the evening DiscontinuedPaxlovid (300/100) 20 x 150 MG & [...] Verified] Objective: * Vitals: H t: 65, Wt:194, BMI:32.28, BP:138/83, HR:68, Temp:99.1, Wt-k. * P ast Orders: Lab:Hemoglobin A1c * Collection Date 09/25/2024 04/27/2024 01/20/2024 Collection Time 06:38 AM 06:33 AM 06:41 AM Order Date 09/25/2024 04/27/2024 01/20/2024 Hemoglobin A1c % 8.3 H (Ref Range: <6.0 %) 7.4 H (Ref Range: <6.0 %) 8.5 H (Ref Range: <6.0 %) Estimated Average Glucose 192 (Ref Range: mg/dL) 166 (Ref Range: mg/dL) 197 (Ref Range: mg/dL) * Lab:Complete Blood Count Aut o Diff * Collection Date 09/25/2024 04/27/2024 01/20/2024 Collection Time 06:38 AM 06:33 AM 06:41 AM Order Date 09/25/2024 04/27/2024 01/20/2024 White Blood Count 6.3 (Ref Range: 4.8-10.8 X10*3/uL) 5.2 (Ref Range: 4.8-10.8 X10*3/uL) 6.1 (Ref Range: 4.8-10.8 X10*3/uL) Red Blood Count 4.95 (Ref Range: 4.60-5.80 X10*6/uL) 4.63 (Ref Range: 4.60-5.80 X10*6/uL) 4.92 (Ref Range: 4.60-5.80 X10*6/uL) Hemoglobin 14.9 (Ref Range: 14.0-18.0 g/dl) 14.4 (Ref Range: 14.0-18.0 g/dl) 15.1 (Ref Range: 14.0-18.0 g/dl) Hematocrit 42.5 (Ref Range: 42.0-52.0 %) 41.0 L (Ref Range: 42.0-52.0 %) 43.6 (Ref Range: 42.0-52.0 %) Mean Corpuscular Volume 85.9 (Ref Range: 80.0-98.0 fL) 88.6 (Ref Range: 80.0-98.0 fL) 88.6 (Ref Range: 80.0-98.0 fL) Mean Corpuscular Hemoglobin 30.1 (Ref Range: 27.0-33.0 pg) 31.1 (Ref Range: 27.0-33.0 pg) 30.7 (Ref Range: 27.0-33.0 pg) Mean Corpuscular HGB Conc 35.1 (Ref Range: 31.0-36.0 g/dl) 35.1 (Ref Range: 31.0-36.0 g/dl) 34.6 (Ref Range: 31.0-36.0 g/dl) Red Cell Distribution Width 12.2 (Ref Range: 11.0-16.0 %) 12.4 (Ref Range: 11.0-16.0 %) 12.7 (Ref Range: 11.0-16.0 %) Platelet Count 241 (Ref Range: 160-400 X10*3/uL) 212 (Ref Range: 160-400 X10*3/uL) 211 (Ref Range: 160-400 X10*3/uL) Mean Platelet Volume 10.6 (Ref Range: 9.4-12.4 fL) 10.7 (Ref Range: 9.4-12.4 fL) 11.0 (Ref Range: 9.4-12.4 fL) Neutrophils Percent Auto 56.1 (Ref Range: 45-73 %) 51.1 (Ref Range: 45-73 %) 59.7 (Ref Range: 45-73 %) Imm Gran Pct Auto 0.5 H (Ref Range: 0.0-0.4 %) 0.2 (Ref Range: 0.0-0.4 %) 0.3 (Ref Range: 0.0-0.4 %) Lymphocytes Percent Auto 30.9 (Ref Range: 20-40 %) 29.9 (Ref Range: 20-40 %) 25.5 (Ref Range: 20-40 %) Monocytes Percent Auto 7.7 (Ref Range: 2-11 %) 9.0 (Ref Range: 2-11 %) 8.8 (Ref Range: 2-11 %) Eosinophils Percent Auto 4.3 H (Ref Range: 0-4 %) 8.6 H (Ref Range: 0-4 %) 4.5 H (Ref Range: 0-4 %) Basophils Percent Auto 0.5 (Ref Range: 0-2 %) 1.2 (Ref Range: 0-2 %) 1.2 (Ref Range: 0-2 %) NRBC Pct Auto 0.0 (Ref Range: 0.0-0.2 /100WBC) 0.0 (Ref Range: 0.0-0.2 /100WBC) 0.0 (Ref Range: 0.0-0.2 /100WBC) Neutrophils Absolute Auto 3.6 (Ref Range: 2.0-8.3 x10*3/uL) 2.7 (Ref Range: 2.0-8.3 x10*3/uL) 3.6 (Ref Range: 2.0-8.3 x10*3/uL) Imm Gran Abs Auto 0.03 (Ref Range: 0.00-0.03 X10*3/uL) 0.01 (Ref Range: 0.00-0.03 X10*3/uL) 0.02 (Ref Range: 0.00-0.03 X10*3/uL) Lymphocytes Absolute Auto 2.0 (Ref Range: 1.2-4.9 X10*3/uL) 1.6 (Ref Range: 1.2-4.9 X10*3/uL) 1.5 (Ref Range: 1.2-4.9 X10*3/uL) Monocytes Absolute Auto 0.5 (Ref Range: 0.1-1.2 X10*3/uL) 0.5 (Ref Range: 0.1-1.2 X10*3/uL) 0.5 (Ref Range: 0.1-1.2 X10*3/uL) Eosinophils Absolute Auto 0.3 (Ref Range: 0.0-0.4 X10*3/uL) 0.5 H (Ref Range: 0.0-0.4 X10*3/uL) 0.3 (Ref Range: 0.0-0.4 X10*3/uL) Basophils Absolute Auto 0.0 (Ref Range: 0.0-0.2 X10*3/uL) 0.1 (Ref Range: 0.0-0.2 X10*3/uL) 0.1 (Ref Range: 0.0-0.2 X10*3/uL) NRBC Abs Auto 0.000 (Ref Range: 0.0-0.012 X10*3/uL) 0.000 (Ref Range: 0.0-0.012 X10*3/uL) 0.000 (Ref Range: 0.0-0.012 X10*3/uL) * Lab:Zulema jackson Fast * Collection Date 09/25/2024 04/27/2024 01/20/2024 Collection Time 06:38 AM 06:33 AM 06:41 AM Order Date 09/25/2024 04/27/2024 01/20/2024 Sodium 139 (Ref Range: 135-145 mmol/L) 142 (Ref Range: 135-145 mmol/L) 138 (Ref Range: 135-145 mmol/L) Bilirubin Total 0.7 (Ref Range: 0.0-1.0 mg/dL) 1.2 H (Ref Range: 0.0-1.0 mg/dL) 0.9 (Ref Range: 0.0-1.0 mg/dL) Aspartate Amino Transferase 16 (Ref Range: 5-37 U/L) 14 (Ref Range: 5-37 U/L) 12 (Ref Range: 5-37 U/L) Alanine Aminotransferase 16 (Ref Range: 0-40 U/L) 13 (Ref Range: 0-40 U/L) 13 (Ref Range: 0-40 U/L) Total Protein 7.1 (Ref Range: 6.5-8.0 g/dL) 6.5 (Ref Range: 6.5-8.0 g/dL) 6.7 (Ref Range: 6.5-8.0 g/dL) Albumin Level 4.1 (Ref Range: 3.5-5.0 g/dL) 4.3 (Ref Range: 3.5-5.0 g/dL) 4.2 (Ref Range: 3.5-5.0 g/dL) Alkaline Phosphatase 90 (Ref Range: 39-117 U/L) 74 (Ref Range: 39-117 U/L) 86 (Ref Range: 39-117 U/L) Potassium 3.5 (Ref Range: 3.3-5.1 mmol/L) 3.4 (Ref Range: 3.3-5.1 mmol/L) 3.4 (Ref Range: 3.3-5.1 mmol/L) Chloride 104 (Ref Range: 96-108 mmol/L) 108 (Ref Range: 96-108 mmol/L) 102 (Ref Range: 96-108 mmol/L) Carbon Dioxide 29 (Ref Range: 22-29 mmol/L) 26 (Ref Range: 22-29 mmol/L) 26 (Ref Range: 22-29 mmol/L) Anion Gap 10 L (Ref Range: 12-20) 11 L (Ref Range: 12-20) 13 (Ref Range: 12-20) Blood Urea Nitrogen 12 (Ref Range: 9-16 mg/dL) 15 (Ref Range: 9-16 mg/dL) 10 (Ref Range: 9-16 mg/dL) Creatinine 0.90 (Ref Range: 0.5-1.4 mg/dL) 0.87 (Ref Range: 0.5-1.4 mg/dL) 0.86 (Ref Range: 0.5-1.4 mg/dL) Estimated Glomerular Filt Rate > 60 > 60 > 60 Glucose Fasting 228 H (Ref Range: 60-99 mg/dL) 178 H (Ref Range: 60-99 mg/dL) 227 H (Ref Range: 60-99 mg/dL) Calcium 8.8 (Ref Range: 8.4-10.2 mg/dL) 9.1 (Ref Range: 8.4-10.2 mg/dL) 9.2 (Ref Range: 8.4-10.2 mg/dL) * Lab:Lipid Panel * Collection Date 09/25/2024 04/27/2024 01/20/2024 Collection Time 06:38 AM 06:33 AM 06:41 AM Order Date 09/25/2024 04/27/2024 01/20/2024 Triglycerides 130 (Ref Range: <150 mg/dL) 61 (Ref Range: <150 mg/dL) 106 (Ref Range: <150 mg/dL) Cholesterol 143 (Ref Range: <200 mg/dL) 134 (Ref Range: <200 mg/dL) 148 (Ref Range: <200 mg/dL) LDL Cholesterol Calculated 80 (Ref Range: <100 mg/dL) 76 (Ref Range: <100 mg/dL) 81 (Ref Range: <100 mg/dL) HDL Cholesterol 37 L (Ref Range: >40 mg/dL) 46 (Ref Range: >40 mg/dL) 46 (Ref Range: >40 mg/dL) * Lab:Prostate Specific Antige n * Collection Date 09/25/2024 01/20/2024 12/29/2023 Collection Time 06:38 AM 06:41 AM 06:37 AM Order Date 09/25/2024 01/20/2024 12/29/2023 Prostate Specific Antigen 2.03 (Ref Range: <0.05-4.0 ng/mL) 1.50 (Ref Range: <0.05-4.0 ng/mL) 1.57 (Ref Range: <0.05-4.0 ng/mL) * Lab:Microalbumin, Random * Collection Date 09/25/2024 04/27/2024 01/20/2024 Collection Time 06:38 AM 06:32 AM 06:41 AM Order Date 09/25/2024 04/27/2024 01/20/2024 Creatinine Urine 79.38 (Ref Range: mg/dL) 149.09 (Ref Range: mg/dL) 50.68 (Ref Range: mg/dL) Microalbumin Urine 38.0 (Ref Range: mg/L) 28.0 (Ref Range: mg/L) 13.0 (Ref Range: mg/L) Microalbum Creatinine Ratio Ur 47.8 H (Ref Range: <30 ug/mg cr) 18.7 (Ref Range: <30 ug/mg cr) 25.6 (Ref Range: <30 ug/mg cr) * Examination: G eneral Examination: GENERAL APPEARANCE: p lani, well nourished, well developed, in no acute [...] (Primary) N otes :His hemoglobin A1c has increased to 8.3 and his fasting glucose was over 200. He admits to many dietary indiscretions. His medications will be adjusted. Short follow-up was arranged. We discussed diet and nutrition at length today. 2 . H yperlipidemia, unspecified hyperlipidemia type - E78.5 N otes :The current fasting lipid profile was good control of his lipids and compliance with his medication. 3 . E ssential hypertension - I10 N otes :His blood pressure is currently stable and no change in his medication was made. I strongly recommended aggressive weight loss and sodium restriction 4 . O besity (BMI 30-39.9) - E66.9 N otes :He has gained 1 pound. We discussed diet and nutrition and the importance of weight loss. 5 . B enign prostatic hyperplasia with lower urinary tract symptoms - N40.1? Notes :He is experiencing nocturia once a night. We have discussed lifestyle modifications he could make to reduce nocturia. Plan: * Treatment: 2. H yperlipidemia, unspecified hyperlipidemia type L AB: PROFILE, FASTING (COMPREHENSIVE METABOLIC) L AB: PSA, TOTAL L AB: CBC w DIFF L AB: Lipid Panel L AB: Microalbumin, Random 3. E ssential hypertension L AB: PROFILE, FASTING (COMPREHENSIVE METABOLIC) L AB: PSA, TOTAL L AB: CBC w DIFF L AB: Lipid Panel L AB: Microalbumin, Random 4. O lisbetity (BMI 30-39.9) L AB: PROFILE, FASTING (COMPREHENSIVE METABOLIC) L AB: PSA, TOTAL L AB: CBC w DIFF L AB: Lipid Panel L AB: Microalbumin, Random 5. B enign prostatic hyperplasia with lower urinary tract symptoms L AB: PROFILE, FASTING (COMPREHENSIVE METABOLIC) L AB: PSA, TOTAL L AB: CBC w DIFF L AB: Lipid Panel L AB: Microalbumin, Random 6. O thers Continue Simvastatin Tablet, 20 MG, 1 Tablet, Orally, Every day in the evening; C ontinue Atenolol Tablet, 100 MG, TAKE 1 TABLET BY MOUTH EVERY DAY; C ontinue Lisinopril Tablet, 40 MG, TAKE 1 TABLET BY MOUTH EVERY DAY; C ontinue NIFEdipine ER Tablet Extended Release 24 Hour, 30 MG, TAKE 1 TABLET BY MOUTH EVERY DAY ON EMPTY STOMACH; C ontinue Sildenafil Citrate Tablet, 50 MG, TAKE 1 TABLET BY MOUTH EVERY DAY NEEDED. * Procedure Codes: * Preventive Medicine: Counseling: [...] without too much effort. T reatment Goals H bA1C < 7.0, Blood Sugars less than < 115. B arriers n o barriers. S elf-Managment Goals W ork on weight loss, with a goal of losing 1 lb per week. * Follow Up: 4 Months (Reason: OV) * Images: * Sign off status: Completed true * Provider: Poppy Ortiz MD Date: 0 10/01/2024 Generated for [employer] bridget/Candida/eTransmitting on: 1 06:29 AM EDT History and Physical Notes * [...] way: Not at all Total Score: 0 Fall Risk Screening Fall History Have you had any falls with injury in the past year?: No Have you had two or more falls in the year?: No Fall Risk Assessment:: No falls in the year COVID-19 Screening Questions Have you had any new onset fever, chills, cough, congestion, sore throat, shortness of breath, muscle aches?: No SDOH Questions SDOH Questions In the past [...]
--- OUTSIDE RECORDS SUMMARY | 2025-01-31 05:45 | XMS_ITS ---
Author Organization Ravinder Ortiz III, MD Address [address] [place] [address] [place] [address] Care Team Providers Care Logistics Operations Director Name Role Phone Dr. Ravinder Ortiz III Primary Care Provider Allergies Allergen (clinical drug ingredient) Drug/Non Drug Allergy documented on EMR Reaction Allergy Type Onset Date Status No Known Drug Allergy Unknown Drug Allergy Active REASON FOR VISIT Diabetes, Hyperlipidemia, Hypertension, Benign prostatic hypertrophy, Obesity Medications Medication SIG (Take, Route, Frequency, Duration) Notes Start Date End Date Status Lisinopril 40 MG TAKE 1 TABLET BY [...] MOUTH EVERY DAY NEEDED Active metFORMIN HCl 1000 MG TAKE 1 TABLET BY M OUTH TWICE A DAY WITH A MEAL FOR 90 DAYS Active NIFEdipine ER 30 MG TAKE 1 TABLET BY BRAD TH EVERY DAY ON EMPTY STOMACH Active Simvastatin 20 MG 1 Tablet Orally Ever y day in the evening Active Atenolol 100 MG TAKE 1 TABLET BY BRAD TH EVERY DAY Active Social History Tobacco Use: Social History Observation Description Date Details (start date - stop date) Never Smoker NA - NA Sex Assigned At : Social History Observation Description Sex Assigned At Male Tobacco Use/Smoking Question Answer Notes Patient is a nonsmoker Additional Findings: Tobacco Non-User Aggressive non-smoker Vital Signs Temperature 98.4 degrees Fahrenheit 02/01/20 25 Blood pressure systolic 130 mm Hg 02/01/20 25 Blood pressure diastolic 72 mm Hg 025 Heart Rate 64 /min 01/31/2025 Height 65 in 01/31/2025 Weight 183 lbs 01/31/2025 BMI 30.45 kg/m2 01/31/2025 Encounters Encounter Location Date Provider Diagnosis Ravinder Ortiz III, MD [address] [place] [address] [place] [address] 01/31/2025 Ravinder Ortiz Type 2 diabetes jordy itus without complication, without long-term current use of insulin E11.9 ; Hyperlipidemia, unspecified hyperlipidemia type E78.5 ; Obesity (BMI 30-39.9) E66.9 ; Benign prostatic hyperplasia with lower urinary tract symptoms N40.1 and Essential hypertension I10 Assessments Encounter Date Diagnosis (ICD Code) Assessment Notes Treat ment Notes Treatment Clinical Notes 01/31/2025 Type 2 diabetes mellitus without complication, without long-term current use of insulin (ICD-10 - E11.9) His fasting glucose is 157 and he has lost 11 pounds. A current hemoglobin A1c is not available. One will be done in the near future. No change in his regimen was necessary today. I made the point with him that the foundation of control of his diabetes should be weight loss and diet. 01/31/2025 Hyperlipidemia, unspecified hyperlipidemia type (ICD-10 - E78.5) His current fasting lipid profile shows excellent control of his lipids. No change in his regimen was made. 01/31/2025 Obesity (BMI 30-39.9 ) (ICD-10 - E66.9) He has lost 11 pounds. We discussed a weight which she could continue weight loss until his body mass index is in the normal range. 01/31/2025 Benign prostatic hyperplasia with lower urinary tract symptoms (ICD-10 - N40.1) He has been rising from sleep about once a night to urinate. We have discussed modifications in his lifestyle he could make to reduce nocturia. 01/31/2025 Essential hypertension (ICD-10 - I10) His blood pressure is currently stable and no change in his medication was made. I strongly recommended aggressive weight loss and sodium restriction Plan Of Treatment Medication Medication Name Sig Start Date Stop Date Notes Lisinopril 40 MG TAKE 1 TABLET BY BRAD TH EVERY DAY Tamsulosin HCl 0.4 MG 2 capsules 30 vera savanah after the same meal each day Orally Once a day 05/04/2019 Loratadine 10 MG 1 tablet Orally Once a day oxyBUTYnin Chloride ER 10 MG 1 tablet Orally Once a day Sildenafil Citrate 50 MG TAKE 1 TABLET B Y MOUTH EVERY DAY NEEDED metFORMIN HCl 1000 MG TAKE 1 TABLET BY M OUTH TWICE A DAY WITH A MEAL FOR 90 DAYS NIFEdipine ER 30 MG TAKE 1 TABLET BY BRAD TH EVERY DAY ON EMPTY STOMACH Simvastatin 20 MG 1 Tablet Orally Ever y day in the evening Atenolol 100 MG TAKE 1 TABLET BY BRAD TH EVERY DAY Pending Test Test Name Order Date PROFILE, FASTING (COMPREHENSIVE METABOLI C) 01/31/2025 PSA, TOTAL 01/31/2025 CBC w DIFF 01/31/2025 Lipid Panel 01/31/2025 Microalbumin, Random 01/31/2025 Hemoglobin A1c 01/31/2025 Next Appt Details Follow Up: 3 Months, Reason: OV Provider Name:Ravinder Ortiz , 05/02/2025 09:15:00 AM, [address] [place] [address] [address], [place], [id number], Provider Name:Ravinder Ortiz , 10/03/2025 10:00:00 AM, [address] [place] [address] [address], [place], [id number], Progress Notes * YAMILEX IBARRADOB: 5 (69 yo M)Acc No.[id number]:01/31/2025 Progress Notes Patient: YAMILEX PUTNAM Provider: Poppy Ortiz MD :1955 A ge:69 Y S ex:Male Date:01/31/2025 Address:[address] [place] [address] [phone] Subjective: * Chief Complaints: * D iabetesHyperlipidemiaHypertensionBenign prostatic hypertrophyObesity * HPI: C OVID-19 Screening: He returns for medical management. He has lost 11 pounds and is doing well. His hemoglobin A1c was excellent. His blood work was reviewed with him. His umbilical hernia is asymptomatic. He arises from sleep once a night to urinate. His arthritis is minor. No change in his regimen was necessary today. Questions H ave you had any new onset fever, chills, cough, congestion, sore throat, shortness of breath, muscle aches? N o * ROS: G eneral/Constitutional: pain L umbar spine. C hills d enies. F atigue?admits. F ever d enies. E NT: Decreased [...] have been noted. G enitourinary: Frequent urination d enies. M usculoskeletal: Muscle aches d enies. P ainful joints L umbar spine. S ciatica d enies. W eakness d enies. S kin: Itching d enies. R carmine d enies. S kin lesion(s)?denies. N eurologic: Difficulty speaking d enies. D izziness d enies.?Headache d enies. L ow back pain d enies. P sychiatric: Depressed mood d enies. * Medical History: * Surgical History: a ppendectomy 1975hernia removal 1999colonoscopy,, [facility] 05/2020No history * Hospitalization/Major Diagno [...] T obacco Use: T obacco Use/Smoking P brenna is a n onsmoker A dditional Findings: Tobacco Non-User A ggressive non-smoker Inés hernández was born in [place] and raised at [facility] near [facility]. He has been to [place] for 44 years. 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 * Medications: T akingSimvastatin 20 MG Tablet 1 Tablet Orally Every day in the evening Atenolol 100 MG Tablet TAKE 1 TABLET BY MOUTH EVERY DAY Lisinopril 40 MG Tablet TAKE 1 TABLET BY MOUTH EVERY DAY Tamsulosin HCl 0.4 MG Capsule 2 capsules 30 minutes after the same meal each day Orally Once a day oxyBUTYnin Chloride ER 10 MG Tablet Extended Release 24 Hour 1 tablet Orally Once a day Sildenafil Citrate 50 MG Tablet TAKE 1 TABLET BY MOUTH EVERY DAY NEEDED metFORMIN HCl 1000 MG Tablet TAKE 1 TABLET BY MOUTH TWICE A DAY WITH A MEAL FOR 90 DAYS NIFEdipine ER 30 MG Tablet Extended Release 24 Hour TAKE 1 TABLET BY MOUTH EVERY DAY ON EMPTY STOMACH Taking Simvastatin 20 MG Tablet 1 Tablet Orally Every day in the evening Taking Atenolol 100 MG Tablet TAKE 1 TABLET BY MOUTH EVERY DAY Taking Lisinopril 40 MG Tablet TAKE 1 TABLET BY MOUTH EVERY DAY Taking Tamsulosin HCl 0.4 MG Capsule 2 capsules 30 minutes after the same meal each day Orally Once a day Taking oxyBUTYnin Chloride ER 10 MG Tablet Extended Release 24 Hour 1 tablet Orally Once a day Taking Sildenafil Citrate 50 MG Tablet TAKE 1 TABLET BY MOUTH EVERY DAY NEEDED Taking metFORMIN HCl 1000 MG Tablet TAKE 1 TABLET BY MOUTH TWICE A DAY WITH A MEAL FOR 90 DAYS Taking NIFEdipine ER 30 MG Tablet Extended Release 24 Hour TAKE 1 TABLET BY MOUTH EVERY DAY ON EMPTY STOMACH Not-Taking/PRNLoratadine 10 MG Tablet 1 tablet Orally Once a day Medication List reviewed and reconciled with the patientNot-Taking/PRN Loratadine 10 MG Tablet 1 tablet Orally Once a day Medication List reviewed and reconciled with the patient * Allergies: N o Known Drug Allergyno[Allergies Verified] Objective: * Vitals: H t: 65, Wt:183, BMI:30.45, BP:130/72, HR:64, Temp:98.4, Wt-k.01. * P ast Orders: Lab:Microalbumin, Random * Collection Date 01/21/2025 09/25/2024 04/27/2024 Collection Time 06:45 AM 06:38 AM 06:32 AM Order Date 01/21/2025 09/25/2024 04/27/2024 Creatinine Urine 127.03 (Ref Range: mg/dL) 79.38 (Ref Range: mg/dL) 149.09 (Ref Range: mg/dL) Microalbumin Urine 17.0 (Ref Range: mg/L) 38.0 (Ref Range: mg/L) 28.0 (Ref Range: mg/L) Microalbum Creatinine Ratio Ur 13.3 (Ref Range: <30 ug/mg cr) 47.8 H (Ref Range: <30 ug/mg cr) 18.7 (Ref Range: <30 ug/mg cr) * Lab:Complete Blood Count Aut o Diff * Collection Date 01/21/2025 09/25/2024 04/27/2024 Collection Time 06:45 AM 06:38 AM 06:33 AM Order Date 01/21/2025 09/25/2024 04/27/2024 White Blood Count 5.5 (Ref Range: 4.8-10.8 X10*3/uL) 6.3 (Ref Range: 4.8-10.8 X10*3/uL) 5.2 (Ref Range: 4.8-10.8 X10*3/uL) Red Blood Count 4.61 (Ref Range: 4.60-5.80 X10*6/uL) 4.95 (Ref Range: 4.60-5.80 X10*6/uL) 4.63 (Ref Range: 4.60-5.80 X10*6/uL) Hemoglobin 14.3 (Ref Range: 14.0-18.0 g/dl) 14.9 (Ref Range: 14.0-18.0 g/dl) 14.4 (Ref Range: 14.0-18.0 g/dl) Hematocrit 40.8 L (Ref Range: 42.0-52.0 %) 42.5 (Ref Range: 42.0-52.0 %) 41.0 L (Ref Range: 42.0-52.0 %) Mean Corpuscular Volume 88.5 (Ref Range: 80.0-98.0 fL) 85.9 (Ref Range: 80.0-98.0 fL) 88.6 (Ref Range: 80.0-98.0 fL) Mean Corpuscular Hemoglobin 31.0 (Ref Range: 27.0-33.0 pg) 30.1 (Ref Range: 27.0-33.0 pg) 31.1 (Ref Range: 27.0-33.0 pg) Mean Corpuscular HGB Conc 35.0 (Ref Range: 31.0-36.0 g/dl) 35.1 (Ref Range: 31.0-36.0 g/dl) 35.1 (Ref Range: 31.0-36.0 g/dl) Red Cell Distribution Width 12.5 (Ref Range: 11.0-16.0 %) 12.2 (Ref Range: 11.0-16.0 %) 12.4 (Ref Range: 11.0-16.0 %) Platelet Count 206 (Ref Range: 160-400 X10*3/uL) 241 (Ref Range: 160-400 X10*3/uL) 212 (Ref Range: 160-400 X10*3/uL) Mean Platelet Volume 10.6 (Ref Range: 9.4-12.4 fL) 10.6 (Ref Range: 9.4-12.4 fL) 10.7 (Ref Range: 9.4-12.4 fL) Neutrophils Percent Auto 55.9 (Ref Range: 45-73 %) 56.1 (Ref Range: 45-73 %) 51.1 (Ref Range: 45-73 %) Imm Gran Pct Auto 0.2 (Ref Range: 0.0-0.4 %) 0.5 H (Ref Range: 0.0-0.4 %) 0.2 (Ref Range: 0.0-0.4 %) Lymphocytes Percent Auto 29.4 (Ref Range: 20-40 %) 30.9 (Ref Range: 20-40 %) 29.9 (Ref Range: 20-40 %) Monocytes Percent Auto 8.0 (Ref Range: 2-11 %) 7.7 (Ref Range: 2-11 %) 9.0 (Ref Range: 2-11 %) Eosinophils Percent Auto 5.6 H (Ref Range: 0-4 %) 4.3 H (Ref Range: 0-4 %) 8.6 H (Ref Range: 0-4 %) Basophils Percent Auto 0.9 (Ref Range: 0-2 %) 0.5 (Ref Range: 0-2 %) 1.2 (Ref Range: 0-2 %) NRBC Pct Auto 0.0 (Ref Range: 0.0-0.2 /100WBC) 0.0 (Ref Range: 0.0-0.2 /100WBC) 0.0 (Ref Range: 0.0-0.2 /100WBC) Neutrophils Absolute Auto 3.1 (Ref Range: 2.0-8.3 x10*3/uL) 3.6 (Ref Range: 2.0-8.3 x10*3/uL) 2.7 (Ref Range: 2.0-8.3 x10*3/uL) Imm Gran Abs Auto 0.01 (Ref Range: 0.00-0.03 X10*3/uL) 0.03 (Ref Range: 0.00-0.03 X10*3/uL) 0.01 (Ref Range: 0.00-0.03 X10*3/uL) Lymphocytes Absolute Auto 1.6 (Ref Range: 1.2-4.9 X10*3/uL) 2.0 (Ref Range: 1.2-4.9 X10*3/uL) 1.6 (Ref Range: 1.2-4.9 X10*3/uL) Monocytes Absolute Auto 0.4 (Ref Range: 0.1-1.2 X10*3/uL) 0.5 (Ref Range: 0.1-1.2 X10*3/uL) 0.5 (Ref Range: 0.1-1.2 X10*3/uL) Eosinophils Absolute Auto 0.3 (Ref Range: 0.0-0.4 X10*3/uL) 0.3 (Ref Range: 0.0-0.4 X10*3/uL) 0.5 H (Ref Range: 0.0-0.4 X10*3/uL) Basophils Absolute Auto 0.1 (Ref Range: 0.0-0.2 X10*3/uL) 0.0 (Ref Range: 0.0-0.2 X10*3/uL) 0.1 (Ref Range: 0.0-0.2 X10*3/uL) NRBC Abs Auto 0.000 (Ref Range: 0.0-0.012 X10*3/uL) 0.000 (Ref Range: 0.0-0.012 X10*3/uL) 0.000 (Ref Range: 0.0-0.012 X10*3/uL) * Lab:Zulema Almodovar. Nellie l Fast * Collection Date 01/21/2025 09/25/2024 04/27/2024 Collection Time 06:45 AM 06:38 AM 06:33 AM Order Date 01/21/2025 09/25/2024 04/27/2024 Sodium 140 (Ref Range: 135-145 mmol/L) 139 (Ref Range: 135-145 mmol/L) 142 (Ref Range: 135-145 mmol/L) Bilirubin Total 0.7 (Ref Range: 0.0-1.0 mg/dL) 0.7 (Ref Range: 0.0-1.0 mg/dL) 1.2 H (Ref Range: 0.0-1.0 mg/dL) Aspartate Amino Transferase 18 (Ref Range: 5-37 U/L) 16 (Ref Range: 5-37 U/L) 14 (Ref Range: 5-37 U/L) Alanine Aminotransferase 14 (Ref Range: 0-40 U/L) 16 (Ref Range: 0-40 U/L) 13 (Ref Range: 0-40 U/L) Total Protein 6.2 L (Ref Range: 6.5-8.0 g/dL) 7.1 (Ref Range: 6.5-8.0 g/dL) 6.5 (Ref Range: 6.5-8.0 g/dL) Albumin Level 4.2 (Ref Range: 3.5-5.0 g/dL) 4.1 (Ref Range: 3.5-5.0 g/dL) 4.3 (Ref Range: 3.5-5.0 g/dL) Alkaline Phosphatase 67 (Ref Range: 39-117 U/L) 90 (Ref Range: 39-117 U/L) 74 (Ref Range: 39-117 U/L) Potassium 3.6 (Ref Range: 3.3-5.1 mmol/L) 3.5 (Ref Range: 3.3-5.1 mmol/L) 3.4 (Ref Range: 3.3-5.1 mmol/L) Chloride 106 (Ref Range: 96-108 mmol/L) 104 (Ref Range: 96-108 mmol/L) 108 (Ref Range: 96-108 mmol/L) Carbon Dioxide 26 (Ref Range: 22-29 mmol/L) 29 (Ref Range: 22-29 mmol/L) 26 (Ref Range: 22-29 mmol/L) Anion Gap 12 (Ref Range: 12-20) 10 L (Ref Range: 12-20) 11 L (Ref Range: 12-20) Blood Urea Nitrogen 13 (Ref Range: 9-16 mg/dL) 12 (Ref Range: 9-16 mg/dL) 15 (Ref Range: 9-16 mg/dL) Creatinine 0.83 (Ref Range: 0.5-1.4 mg/dL) 0.90 (Ref Range: 0.5-1.4 mg/dL) 0.87 (Ref Range: 0.5-1.4 mg/dL) Estimated Glomerular Filt Rate > 60 > 60 > 60 Glucose Fasting 157 H (Ref Range: 60-99 mg/dL) 228 H (Ref Range: 60-99 mg/dL) 178 H (Ref Range: 60-99 mg/dL) Calcium 9.4 (Ref Range: 8.4-10.2 mg/dL) 8.8 (Ref Range: 8.4-10.2 mg/dL) 9.1 (Ref Range: 8.4-10.2 mg/dL) * Lab:Lipid Panel * Collection Date 01/21/2025 09/25/2024 04/27/2024 Collection Time 06:45 AM 06:38 AM 06:33 AM Order Date 01/21/2025 09/25/2024 04/27/2024 Triglycerides 98 (Ref Range: <150 mg/dL) 130 (Ref Range: <150 mg/dL) 61 (Ref Range: <150 mg/dL) Cholesterol 137 (Ref Range: <200 mg/dL) 143 (Ref Range: <200 mg/dL) 134 (Ref Range: <200 mg/dL) LDL Cholesterol Calculated 73 (Ref Range: <100 mg/dL) 80 (Ref Range: <100 mg/dL) 76 (Ref Range: <100 mg/dL) HDL Cholesterol 45 (Ref Range: >40 mg/dL) 37 L (Ref Range: >40 mg/dL) 46 (Ref Range: >40 mg/dL) * Lab:Prostate Specific Antige n * Collection Date 01/21/2025 09/25/2024 01/20/2024 Collection Time 06:45 AM 06:38 AM 06:41 AM Order Date 01/21/2025 09/25/2024 01/20/2024 Prostate Specific Antigen 1.82 (Ref Range: <0.05-4.0 ng/mL) 2.03 (Ref Range: <0.05-4.0 ng/mL) 1.50 (Ref Range: <0.05-4.0 ng/mL) * Examination: G eneral Examination: GENERAL APPEARANCE: [...] e xtremities unremarkable, no clubbing, cyanosis or edema, Mild loss of range of motion lumbar spine. PERIPHERAL PULSES: n ormal. NEUROLOGIC: a lert and oriented, cranial nerves 2-12 grossly intact, deep tendon reflexes 2+ symmetrical, motor strength normal upper and lower extremities, sensory exam intact. PSYCH: a lert, oriented. Assessment: * Assessment: 1. T ype 2 diabetes mellitus without complication, without long-term current use of insulin - E11.9 (Primary) S pecify :brow lift N otes :His fasting glucose is 157 and he has lost 11 pounds. A current hemoglobin A1c is not available. One will be done in the near future. No change in his regimen was necessary today.? I made the point with him that the foundation of control of his diabetes should be weight loss and diet. 2 . H yperlipidemia, unspecified hyperlipidemia type - E78.5 N otes :His current fasting lipid profile shows excellent control of his lipids. No change in his regimen was made. 3 . O mike (BMI 30-39.9) - E66.9 N otes :He has lost 11 pounds. We discussed a weight which she could continue weight loss until his body mass index is in the normal range. 4 . B enign prostatic hyperplasia with lower urinary tract symptoms - N40.1? Notes :He has been rising from sleep about once a night to urinate. We have discussed modifications in his lifestyle he could make to reduce nocturia. 5 . E ssential hypertension - I10 N otes :His blood pressure is currently stable and no change in his medication was made. I strongly recommended aggressive weight loss and sodium restriction Plan: * Treatment: 2. H yperlipidemia, unspecified hyperlipidemia type L AB: PROFILE, FASTING (COMPREHENSIVE METABOLIC) L AB: PSA, TOTAL L AB: CBC w DIFF L AB: Lipid Panel L AB: Microalbumin, Random L AB: Hemoglobin A1c 3. O mike (BMI 30-39.9) L AB: PROFILE, FASTING (COMPREHENSIVE [...] STOMACH; C ontinue Simvastatin Tablet, 20 MG, 1 Tablet, Orally, Every day in the evening; Continue Atenolol Tablet, 100 MG, TAKE 1 TABLET [...] management education, guidance, and counseling, Dietary needs education DM Care Plan: P atient Lifestyle Goals P atient wants to be able to manage diabetes without too much effort. T reatment Goals H bA1C < 7.0, Blood Sugars less than < 115. B arriers n o barriers. S elf-Managment Goals W ork on weight loss, with a goal of losing 1 lb per week. * Follow Up: 3 Months (Reason: OV) * Images: * Sign off status: Completed true * Provider: Poppy Ortiz MD Date: 0 01/31/2025 Generated for Farrahi bridget/Candida/eTransmitting on: 1 06:30 AM EDT History and Physical Notes * HPI (History of Present Illness) Category Sub-Category Detail Notes COVID-19 Screening Questions Have you had any new onset fever, chills, cough, congestion, sore throat, shortness of breath, muscle aches?: No Examination Category Sub-Category Detail Notes General Examination [...] extremities unremark able, no clubbing, cyanosis or edema, Mild loss of range of motion lumbar spine LYMPH NODES: no enlarged lymph no joellen,spleen normal RECTAL EXAM: not examined PSYCH: alert, oriented ORAL CAVITY: normal, unremarkable
--- OUTSIDE RECORDS SUMMARY | 2025-04-22 06:30 | XMS_ITS | Patient Health Record ---
Author Organization [facility] Address [address] [place] [id number] Care Team Providers Care Stretching Machine Tender Frame Name Role Phone Ravinder Ortiz MD Primary Care Provider Unavailab Ravinder Agustin Unavailable [phone] Reason For Referral No Information Medications Medication [...] Problem Status W/U Status Risk Notes Problem [id number] Encounter for screening for malignant neoplasm of colon (Z12.11) Active confirmed Problem [id number] Preprocedural examination (Z01.818) Active confirmed Plan Of Treatment Future Test Test Name Order Date COLONOSCOPY 04/10/2020 Insurance Providers Payer Name Payer Address Payer Phone Subscriber Number Group Number Insured Name Patient Relationship to Insured Coverage Start Date Coverage End Date [facility] [address] [place] [address] [phone] [id number] YAMILEX IBARRA Self - patient is the insured [place] of [place] [employer] [address] [place] [address] [id number] YAMILEX IBARRA Self - patient is the insured Medical (General) History Medical History History ICD Code Hypertension Kidney stones NIDDM BPH Hyperlipidemia Denies MO,CVA,Lung disease,renal disease Surgical History Surgery Date(Month/Year) Bilateral inguinal hernia repair
--- OUTSIDE RECORDS SUMMARY | 2025-04-22 06:31 | XMS_ITS | Patient Health Record ---
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 Ravinder Ortiz III Primary Care Provider Allergies Allergen (clinical drug ingredient) Drug/Non Drug Allergy documented on EMR Reaction Allergy Type Onset Date Status No Known Drug Allergy Unknown Drug Allergy Active Results Component Value Reference Range Notes Complete Blood Count Auto Di ff Reviewed date:04/30/2024 07:08:24 AM Interpretation: Performing Lab:[facility], [address] [place] [phone] Notes/Report: White Blood Count 5.2 4.8-10.8 X10*3/uL [...] NRBC Abs Auto 0.000 0.0-0.012 X10*3/uL Comprehensive [place]. Panel Fa st Reviewed date:04/30/2024 07:08:24 AM Interpretation: Performing Lab:[facility], [address] [place] [phone] Notes/Report: Sodium 142 135-145 mmol/L Potassium 3.4 3.3-5.1 mmol/L Chloride 108 96-108 mmol/L Carbon Dioxide 26 22-29 mmol/L Anion Gap 11 12-20 Blood Urea Nitrogen 15 9-16 mg/dL Creatinine 0.87 0.5-1.4 mg/dL Estimated Glomerular Filt Rate > 60 NOTE: For -Algerian individuals, multiply the result by 1.210. Chronic [...] Panel Reviewed date:04/30/2024 07:08:24 AM Interpretation: Performing Lab:[facility], [address] [place] [phone] Notes/Report: Triglycerides 61 <150 mg/dL Desirable Triglyceride: [...] Random Reviewed date:04/30/2024 07:08:24 AM Interpretation: Performing Lab:[facility], [address] [place] [phone] Notes/Report: Creatinine Urine 149.09 Microalbumin Urine 28.0 Microalbum/Creatinine Ratio Ur 18.7 <30 ug/mg cr Albumin/Creatinine Ratio Reference Ranges: Normal: < 30 ug/mg creatinine Microalbuminuria: 30 - 300 ug/mg creatinine Clinical Albuminuria: > 300 ug/mg creatinine Hemoglobin A1c Reviewed date:04/30/2024 07:08:24 AM Interpretation: Performing Lab:[facility], [address] [place] [phone] Notes/Report: Hemoglobin A1c % 7.4 <6.0 % [...] average glucose, using the formula of the [id number] Average Glucose study (ADAG), Diabetes Care, Vol.31,#8, 2007 Complete Blood Count Auto Di ff Reviewed date:09/30/2024 10:10:05 AM Interpretation: Performing Lab:[facility], [address] [place] [phone] Notes/Report: White Blood Count 6.3 4.8-10.8 X10*3/uL Red Blood Count 4.95 4.60-5.80 X10*6/uL Hemoglobin 14.9 14.0-18.0 g/dl Hematocrit 42.5 42.0-52.0 % Mean Corpuscular Volume 85.9 80.0-98.0 fL Mean Corpuscular Hemoglobin 30.1 27.0-33.0 pg Mean Corpuscular HGB Conc 35.1 31.0-36.0 g/dl Red Cell Distribution Width 12.2 11.0-16.0 % Platelet Count 241 160-400 X10*3/uL Mean Platelet Volume 10.6 9.4-12.4 fL Neutrophils Percent Auto 56.1 45-73 % Imm Gran Pct Auto 0.5 0.0-0.4 % Lymphocytes Percent Auto 30.9 20-40 % Monocytes Percent Auto 7.7 2-11 % Eosinophils Percent Auto 4.3 0-4 % Basophils Percent Auto 0.5 0-2 % NRBC Pct Auto 0.0 0.0-0.2 /100WBC Neutrophils Absolute Auto 3.6 2.0-8.3 x10*3/u L Imm Gran Abs Auto 0.03 0.00-0.03 X10*3/uL Lymphocytes Absolute Auto 2.0 1.2-4.9 X10*3/u L Monocytes Absolute Auto 0.5 0.1-1.2 X10*3/uL Eosinophils Absolute Auto 0.3 0.0-0.4 X10*3/u L Basophils Absolute Auto 0.0 0.0-0.2 X10*3/uL NRBC Abs Auto 0.000 0.0-0.012 X10*3/uL Comprehensive [place]. Panel Fa st Reviewed date:09/30/2024 10:10:05 AM Interpretation: Performing Lab:[facility], [address] [place] [address] Notes/Report: Sodium 139 135-145 mmol/L Potassium 3.5 3.3-5.1 mmol/L Chloride 104 96-108 mmol/L Carbon Dioxide 29 22-29 mmol/L Anion Gap 10 12-20 Blood Urea Nitrogen 12 9-16 mg/dL Creatinine 0.90 0.5-1.4 mg/dL Estimated Glomerular Filt Rate > 60 Chronic Kidney Disease: Estimated GFR < 60 mL/min/1.73m2 Severe Kidney Disease: Estimated GFR < 15 mL/min/1.73m2 Glucose Fasting 228 60-99 mg/dL A fasting glucose of 126 mg/dl or greater on more than one occasion is considered diagnostic of diabetes. Calcium 8.8 8.4-10.2 mg/dL Bilirubin Total 0.7 0.0-1.0 mg/dL Aspartate Amino Transferase 16 5-37 U/L Alanine Aminotransferase 16 0-40 U/L Total Protein 7.1 6.5-8.0 g/dL Albumin Level 4.1 3.5-5.0 g/dL Alkaline Phosphatase 90 39-117 U/L Lipid Panel Reviewed date:09/30/2024 10:10:05 AM Interpretation: Performing Lab:[address] [phone] Notes/Report: Triglycerides 130 <150 mg/dL Desirable Triglyceride: less than 150 mg/dL Borderline High Triglyceride 150-199 mg/dL High Triglyceride: 200-499 mg/dL Very High Triglyceride: greater than or equal to 5OO mg/dL Cholesterol 143 <200 mg/dL Desirable Cholesterol: less than 200 mg/dL Borderline High Cholesterol: 200-239 mg/dL High Cholesterol: greater than 239 mg/dL LDL Cholesterol Calculated 80 <100 mg/dL Desirable LDL: less than 100 mg/dL Near Optimal/Above Optimal LDL: 110-129 mg/dL Borderline High LDL: 130-159 mg/dL High LDL: 160-189 mg/dL Very High LDL: greater than or equal to 190 mg/dL HDL Cholesterol 37 >40 mg/dL Desirable HDL: greater than 40 mg/dL Note: This HDL assay may give artificially low results in patients with liver disease. Prostate Specific Antigen Reviewed date:09/30/2024 10:10:05 AM Interpretation: Performing Lab:[address] [phone] Notes/Report: Prostate Specific Antigen 2.03 <0.05-4.0 ng/mL PSA methodology: [place] Alinity i Chemiluminescent Microparticle Immunoassay (CMIA) Microalbumin, Random Reviewed date:09/30/2024 10:10:05 AM Interpretation: Performing Lab:[facility], [address] [place] [phone] Notes/Report: Creatinine Urine 79.38 Microalbumin Urine 38.0 Microalbum/Creatinine Ratio Ur 47.8 <30 ug/mg cr Albumin/Creatinine Ratio Reference Ranges: Normal: < 30 ug/mg creatinine Microalbuminuria: 30 - 300 ug/mg creatinine Clinical Albuminuria: > 300 ug/mg creatinine Hemoglobin A1c Reviewed date:09/30/2024 10:10:05 AM Interpretation: Performing Lab:[facility], [address] [place] [phone] Notes/Report: Hemoglobin A1c % 8.3 <6.0 % Hemoglobin A1C Reference Range Adults: 4.8 - 6.0 % Non diabetic: < 6.0 % Goal: < 7.0 % Additional Action Suggested: > 8.0 % Note: Hemoglobin A1c results are invalid for patients with abnormal amounts of HbF. Blood transfusions may impact the HbA1c concentration in the patient sample. Estimated Average Glucose 192 eAG = Estimated average glucose which is %A1C expressed as average glucose, using the formula of the [id number] Average Glucose study (ADAG), Diabetes Care, Vol.31,#8, Feb. 2007 Complete Blood Count Auto Di ff Reviewed date:01/27/2025 09:45:02 AM Interpretation: Performing Lab:[facility], [address] [place] [phone] Notes/Report: White Blood Count 5.5 4.8-10.8 X10*3/uL Red Blood Count 4.61 4.60-5.80 X10*6/uL Hemoglobin 14.3 14.0-18.0 g/dl Hematocrit 40.8 42.0-52.0 % Mean Corpuscular Volume 88.5 80.0-98.0 fL Mean Corpuscular Hemoglobin 31.0 27.0-33.0 pg Mean Corpuscular HGB Conc 35.0 31.0-36.0 g/dl Red Cell Distribution Width 12.5 11.0-16.0 % Platelet Count 206 160-400 X10*3/uL Mean Platelet Volume 10.6 9.4-12.4 fL Neutrophils Percent Auto 55.9 45-73 % Imm Gran Pct Auto 0.2 0.0-0.4 % Lymphocytes Percent Auto 29.4 20-40 % Monocytes Percent Auto 8.0 2-11 % Eosinophils Percent Auto 5.6 0-4 % Basophils Percent Auto 0.9 0-2 % NRBC Pct Auto 0.0 0.0-0.2 /100WBC Neutrophils Absolute Auto 3.1 2.0-8.3 x10*3/u L Imm Gran Abs Auto 0.01 0.00-0.03 X10*3/uL Lymphocytes Absolute Auto 1.6 1.2-4.9 X10*3/u L Monocytes Absolute Auto 0.4 0.1-1.2 X10*3/uL Eosinophils Absolute Auto 0.3 0.0-0.4 X10*3/u L Basophils Absolute Auto 0.1 0.0-0.2 X10*3/uL NRBC Abs Auto 0.000 0.0-0.012 X10*3/uL Comprehensive [place]. Panel Fa st Reviewed date:01/27/2025 09:45:02 AM Interpretation: Performing Lab:[facility], [address] [place] [phone] Notes/Report: Sodium 140 135-145 mmol/L Potassium 3.6 3.3-5.1 mmol/L Chloride 106 96-108 mmol/L Carbon Dioxide 26 22-29 mmol/L Anion Gap 12 12-20 Blood Urea Nitrogen 13 9-16 mg/dL Creatinine 0.83 0.5-1.4 mg/dL Estimated Glomerular Filt Rate > 60 Chronic Kidney Disease: Estimated GFR < 60 mL/min/1.73m2 Severe Kidney Disease: Estimated GFR < 15 mL/min/1.73m2 Glucose Fasting 157 60-99 mg/dL A fasting glucose of 126 mg/dl or greater on more than one occasion is considered diagnostic of diabetes. Calcium 9.4 8.4-10.2 mg/dL Bilirubin Total 0.7 0.0-1.0 mg/dL Aspartate Amino Transferase 18 5-37 U/L Alanine Aminotransferase 14 0-40 U/L Total Protein 6.2 6.5-8.0 g/dL Albumin Level 4.2 3.5-5.0 g/dL Alkaline Phosphatase 67 39-117 U/L Lipid Panel Reviewed date:01/27/2025 09:45:02 AM Interpretation: Performing Lab:[facility], [address] [place] [phone] Notes/Report: Triglycerides 98 <150 mg/dL Desirable Triglyceride: less than 150 mg/dL Borderline High Triglyceride 150-199 mg/dL High Triglyceride: 200-499 mg/dL Very High Triglyceride: greater than or equal to 5OO mg/dL Cholesterol 137 <200 mg/dL Desirable Cholesterol: less than 200 mg/dL Borderline High Cholesterol: 200-239 mg/dL High Cholesterol: greater than 239 mg/dL LDL Cholesterol Calculated 73 <100 mg/dL Desirable LDL: less than 100 mg/dL Near Optimal/Above Optimal LDL: 110-129 mg/dL Borderline High LDL: 130-159 mg/dL High LDL: 160-189 mg/dL Very High LDL: greater than or equal to 190 mg/dL HDL Cholesterol 45 >40 mg/dL Desirable HDL: greater than 40 mg/dL Note: This HDL assay may give artificially low results in patients with liver disease. Prostate Specific Antigen Reviewed date:01/27/2025 09:45:02 AM Interpretation: Performing Lab:[facility], [address] [place] [phone] Notes/Report: Prostate Specific Antigen 1.82 <0.05-4.0 ng/mL PSA methodology: [place] Alinity i Chemiluminescent Microparticle Immunoassay (CMIA) Microalbumin, Random Reviewed date:01/27/2025 09:45:02 AM Interpretation: Performing Lab:[facility], [address] [place] [phone] Notes/Report: Creatinine Urine 127.03 Microalbumin Urine 17.0 Microalbum/Creatinine Ratio Ur 13.3 <30 ug/mg cr Albumin/Creatinine Ratio Reference Ranges: Normal: < 30 ug/mg creatinine Microalbuminuria: 30 - 300 ug/mg creatinine Clinical Albuminuria: > 300 ug/mg creatinine Reason For Referral No Information Medications Medication SIG (Take, Route, Frequency, Duration) Notes Start Date End Date Status metFORMIN HCl 1000 MG TAKE 1 TABLET [...] B Y MOUTH EVERY DAY NEEDED Active Immunizations Vaccine Route Administration Date Status Comme nts Influenza, quad IM Intramuscular 06/22/2021 Administered COVID- 19 Vaccine Unknown 10/09/2020 Administered COVID- 19 Vaccine Unknown 05/13/2021 Administered PCV13 Unknown 05/13/2021 Administered COVID- 19 Vaccine Unknown 09/11/2020 Administered COVID Moderna Bivalent Unknown 05/03/2022 Administered COVID-19 Comirnaty Pfizer-BioNTech Unknown 08/15/2023 Administered Influenza-iiv4 p-free high dose Unknown 05/03/2022 Administered Fluzone High-Dose (HD-IIV3) Unknown 04/04/2024 Administered Comirnaty Pfizer COVID-19 12+ Unknown 04/04/2024 Administered Comirnaty Pfizer COVID-19 12+ Unknown 08/15/2023 Administered Social History Tobacco Use: Social History [...] Problem Status W/U Status Risk Notes Problem 889210032 Nocturia (R35.1) Active confirmed He says he has been rising at most once a night. No change in his regimen was indicated. We discussed lifestyle modification as a means to reduce nocturia. Problem 771708050 Obesity (BMI 30-39.9) (E66.9) Active confirmed He has lost 11 pounds. We discussed a weight which she could continue weight loss until his body mass index is in the normal range. Problem 027001266 Erectile dysfunction, unspecified erectile dysfunction type (N52.9) Active confirmed He has an established relationship now with a urologist. Problem 33249926 Essential hypertension (I10) Active confirmed His blood pressure is currently stable and no change in his medication was made. I strongly recommended aggressive weight loss and sodium restriction Problem Hyperlipidaemia (22695456) Hyperlipidemia, unspecified hyperlipidemia type (E78.5) Active confirmed His current fasting lipid profile shows excellent control of his lipids. No change in his regimen was made. Problem 230076301 Renal cyst (N28.1) Active confirmed He will continue to be followed by the radiologist. He has had no hematuria. Problem 846484321 Benign prostatic hyperplasia with lower urinary tract symptoms (N40.1) Active confirmed He has been rising from sleep about once a night to urinate. We have discussed modifications in his lifestyle he could make to reduce nocturia. Problem Type II diabetes mellitus without complication (415906675) Type 2 diabetes mellitus without complication, without long-term current use of insulin (E11.9) Active confirmed His fasting glucose is 157 and he has lost 11 pounds. A current hemoglobin A1c is not available. One will be done in the near future. No change in his regimen was necessary today. I made the point with him that the foundation of control of his diabetes should be weight loss and diet. Problem 24596755 Degenerative disc disease at L5-S1 level (M51.36) Active confirmed This is a minor problem at this time is well controlled with ibuprofen or naproxen. Problem 7585648 Adrenal nodule (E27.9) Active confirmed On a recent CT scan of the abdomen done for other reasons. He had a nodularity in his right adrenal gland measuring 1.7 cm. This will be followed with imaging. This will be imaged as well with the kidney. Vital Signs Heart Rate 64 /min 01/31/2025 Temperature 98.4 degrees Fahrenheit 01/31/2025 Blood pressure diastolic 72 mm Hg 01/31/2025 Height 65 in 01/31/2025 Blood pressure systolic 130 mm Hg 01/31/2025 Weight 183 lbs 01/31/2025 BMI 30.45 kg/m2 01/31/2025 Encounters Encounter Location Date Provider Diagnosis Ravinder Ortiz III, MD [address] [place] [address] [place] [phone] 05/03/2024 Ravinder Ortiz Type 2 diabetes jordy itus without complication, without long-term current use of insulin E11.9 ; Hyperlipidemia, unspecified hyperlipidemia type E78.5 ; Obesity (BMI 30-39.9) E66.9 and Benign prostatic hyperplasia with lower urinary tract symptoms N40.1 Ravinder Ortiz III, MD [address] [place] [address] [address] [place] [phone] 10/01/2024 Ravinder Angel Type 2 diabetes ojrdy itus without complication, without long-term current use of insulin E11.9 ; Hyperlipidemia, unspecified hyperlipidemia type E78.5 ; Essential hypertension I10 ; Obesity (BMI 30-39.9) E66.9 and Benign prostatic hyperplasia with lower urinary tract symptoms N40.1 Ravinder Ortiz III, MD [address] [place] [address] [place] [phone] 01/31/2025 Ravinder Ortiz Type 2 diabetes jordy itus without complication, without long-term current use of insulin E11.9 ; Hyperlipidemia, unspecified hyperlipidemia type E78.5 ; Obesity (BMI 30-39.9) E66.9 ; Benign prostatic hyperplasia with lower urinary tract symptoms N40.1 and Essential hypertension I10 Assessments Encounter Date Diagnosis (ICD Code) Assessment Notes Treat ment Notes Treatment Clinical Notes 05/03/2024 Hyperlipidemia, unspecified hyperlipidemia type (ICD-10 - [...] of one thousand milligrams twice a day. 10/01/2024 Hyperlipidemia, unspecified hyperlipidemia type (ICD-10 - E78.5) The current fasting lipid profile was good control of his lipids and compliance with his medication. 10/01/2024 Type 2 diabetes mellitus without complication, without long-term current use of insulin (ICD-10 - E11.9) His hemoglobin A1c has increased to 8.3 and his fasting glucose was over 200. He admits to many dietary indiscretions. His medications will be adjusted. Short follow-up was arranged. We discussed diet and nutrition at length today. 01/31/2025 Hyperlipidemia, unspecified hyperlipidemia type (ICD-10 - E78.5) His current fasting lipid profile shows excellent control of his lipids. No change in his regimen was made. 01/31/2025 Type 2 diabetes mellitus without complication, [...] diabetes should be weight loss and diet. 05/03/2024 Obesity (BMI 30-39.9 ) (ICD-10 - E66.9) His body mass index is 32 and his weight has been stable. We reviewed his weight loss strategy in detail today. 10/01/2024 Essential hypertension (ICD-10 - I10) His blood pressure is currently stable and no change in his medication was made. I strongly recommended aggressive weight loss and sodium restriction 01/31/2025 Obesity (BMI 30-39.9 ) (ICD-10 - E66.9) He has lost 11 pounds. We discussed a weight which she could continue weight loss until his body mass index is in the normal range. 05/03/2024 Benign prostatic hyperplasia with lower urinary tract symptoms (ICD-10 - N40.1) He rises from sleep on the average of once a night to urinate. We discussed lifestyle modifications he could make reduce this. 10/01/2024 Obesity (BMI 30-39.9 ) (ICD-10 - E66.9) He has gained 1 pound. We discussed diet and nutrition and the importance of weight loss. 01/31/2025 Benign prostatic hyperplasia with lower urinary tract symptoms (ICD-10 - N40.1) He has been rising from sleep about once a night to urinate. We have discussed modifications in his lifestyle he could make to reduce nocturia. 10/01/2024 Benign prostatic hyperplasia with lower urinary tract symptoms (ICD-10 - N40.1) He is experiencing nocturia once a night. We have discussed lifestyle modifications he could make to reduce nocturia. 01/31/2025 Essential hypertension (ICD-10 - I10) His blood pressure is currently stable and no change in his medication was made. I strongly recommended aggressive weight loss and sodium restriction Plan Of Treatment Pending Test Test Name Order Date PROFILE, FASTING (COMPREHENSIVE METABOLI C) 06/08/2022 PROFILE, FASTING (COMPREHENSIVE METABOLI C) 04/06/2022 PROFILE, FASTING (COMPREHENSIVE METABOLI C) 02/17/2023 PROFILE, FASTING (COMPREHENSIVE METABOLI C) 05/12/2018 PROFILE, FASTING (COMPREHENSIVE METABOLI C) 10/14/2022 PROFILE, FASTING (COMPREHENSIVE METABOLI C) 09/22/2021 PROFILE, FASTING (COMPREHENSIVE METABOLI C) 03/03/2018 PROFILE, FASTING (COMPREHENSIVE METABOLI C) 06/22/2021 PROFILE, FASTING (COMPREHENSIVE METABOLI C) 02/18/2021 PROFILE, FASTING (COMPREHENSIVE METABOLI C) 12/22/2021 PROFILE, FASTING (COMPREHENSIVE METABOLI C) 10/16/2020 PROFILE, FASTING (COMPREHENSIVE METABOLI C) 09/26/2023 PROFILE, FASTING (COMPREHENSIVE METABOLI C) 06/16/2023 PROFILE, FASTING (COMPREHENSIVE METABOLI C) 05/03/2024 PROFILE, FASTING (COMPREHENSIVE METABOLI C) 01/31/2025 PROFILE, FASTING (COMPREHENSIVE METABOLI C) 01/27/2024 PROFILE, FASTING (COMPREHENSIVE METABOLI C) 10/01/2024 PROFILE, FASTING (COMPREHENSIVE METABOLI C) 06/19/2020 PROFILE, FASTING (COMPREHENSIVE METABOLI C) 09/22/2018 PROFILE, FASTING (COMPREHENSIVE METABOLI C) 05/04/2019 PROFILE, [...] PANEL 04/06/2022 LIPID PANEL 02/17/2023 LIPID PANEL 02/18/2021 LIPID PANEL 05/12/2018 LIPID PANEL 10/14/2022 LIPID PANEL 09/22/2021 LIPID PANEL 03/03/2018 LIPID PANEL 12/22/2021 LIPID PANEL 10/16/2020 LIPID PANEL 06/19/2020 PSA, TOTAL 06/19/2020 PSA, TOTAL 09/22/2018 PSA, TOTAL 06/08/2022 PSA, TOTAL 09/26/2023 PSA, TOTAL 02/17/2023 PSA, TOTAL 05/03/2024 PSA, TOTAL 01/31/2025 PSA, TOTAL 02/18/2021 PSA, TOTAL 10/01/2024 PSA, TOTAL 09/22/2021 PSA, TOTAL 03/03/2018 MICROALBUMIN, RANDOM 12/29/2018 MICROALBUMIN, RANDOM 04/06/2022 MICROALBUMIN, RANDOM 09/22/2018 MICROALBUMIN, RANDOM 10/14/2022 MICROALBUMIN, RANDOM 06/08/2022 MICROALBUMIN, RANDOM 02/17/2023 MICROALBUMIN, RANDOM 10/16/2020 MICROALBUMIN, RANDOM 09/22/2021 CBC w DIFF 10/16/2020 CBC w DIFF 09/22/2021 CBC w DIFF 06/19/2020 CBC w DIFF 02/17/2023 CBC w DIFF 02/14/2020 CBC w DIFF 06/22/2021 CBC w DIFF 05/12/2018 CBC w DIFF 09/14/2019 CBC w DIFF 12/29/2018 CBC w DIFF 04/06/2022 CBC w DIFF 09/22/2018 CBC w DIFF 01/31/2025 CBC w DIFF 02/18/2021 CBC w DIFF 12/22/2021 CBC w DIFF 10/14/2022 CBC w DIFF 10/01/2024 CBC w DIFF 03/03/2018 CBC w DIFF 06/08/2022 CBC WITH AUTO DIFF 06/16/2023 CBC WITH AUTO DIFF 01/27/2024 CBC WITH AUTO DIFF 09/26/2023 CBC WITH AUTO DIFF 05/03/2024 Lipid Panel 05/03/2024 Lipid Panel 01/31/2025 Lipid Panel 10/01/2024 Lipid Panel 06/22/2021 Lipid Panel 06/16/2023 Lipid Panel 01/27/2024 Lipid Panel 09/26/2023 Microalbumin, Random 06/22/2021 Microalbumin, Random 06/16/2023 Microalbumin, Random 01/27/2024 Microalbumin, Random 09/26/2023 Microalbumin, Random 05/03/2024 Microalbumin, Random 01/31/2025 Microalbumin, Random 10/01/2024 Hemoglobin A1c 02/18/2021 Hemoglobin A1c 06/16/2023 Hemoglobin A1c 01/27/2024 Hemoglobin A1c 09/26/2023 Hemoglobin A1c 05/03/2024 Hemoglobin A1c 01/31/2025 Next Appt Details Provider Name:Ravinder Ortiz , 05/02/2025 09:15:00 AM, [address] [place] [address] [address], [place], [address], Provider Name:Ravinder Ortiz , 10/03/2025 10:00:00 AM, [address] [place] [address] [address], [place], [address], Insurance Providers Payer Name Payer Address Payer Phone Subscriber Number Group Number Insured Name Patient Relationship to Insured Coverage Start Date Coverage End Date [employer] [employer] [address] [place], [place] [id number] YAMILEX IBARRA Self - patient is the insured 0 MEDICARE NGS [address] [place] [address] [id number] YAMILEX IBARRA Self - patient is the insured Medical (General) History Medical History History ICD Code Hypertension, unspecified type I10 Hyperlipidemia, unspecified hyperlipidem ia type E78.5 diabetes mellitus left renal mass on 0.[address] scan 1.7 cm right adrenal nodule 2012 CT scan obesity degenerative disc disease L5-S1 eczema. Left ankle umbilical hernia shingles 2005 benign prostatic hypertrophy tubular adenoma Surgical History Surgery Date(Month/Year) No history colonoscopy,, [facility] [place]/2020 hernia removal 1999 appendectomy 1975 Hospitalization History Reason Date(Month/Year) No history
[2025-04-22 10:36] LABS: MANUAL DIFF FLAG NO
[2025-04-22 10:43] LABS: Hematocrit 41.9 % (42.0-52.0); Hemoglobin 14.4 g/dl (14.0-18.0); Imm Gran Abs Auto 0.02 X10*3/uL (0.00-0.03); Imm Gran Pct Auto 0.3 % (0.0-0.4); Lymphocytes Absolute Auto 1.8 X10*3/uL (1.2-4.9); Mean Corpuscular HGB Conc 34.4 g/dl (31.0-36.0); Mean Corpuscular Hemoglobin 30.3 pg (27.0-33.0); Mean Corpuscular Volume 88.2 fL (80.0-98.0); NRBC Abs Auto 0.000 X10*3/uL (0.0-0.012); NRBC Pct Auto 0.0 /100WBC (0.0-0.2); Platelet Count 206 X10*3/uL (160-400); Red Blood Count 4.75 X10*6/uL (4.60-5.80); White Blood Count 6.1 X10*3/uL (4.8-10.8)
[2025-04-22 10:54] LABS: Alanine Aminotransferase 13 U/L (0-40); Albumin Level 4.3 g/dL (3.5-5.0); Alkaline Phosphatase 65 U/L (39-117); Anion Gap 10 (12-20); Aspartate Amino Transferase 17 U/L (5-37); Blood Urea Nitrogen 18 mg/dL (9-16); Calcium 9.1 mg/dL (8.4-10.2); Carbon Dioxide 28 mmol/L (22-29); Chloride 103 mmol/L (96-108); Cholesterol 144 mg/dL (<200); Estimated Glomerular Filt Rate > 60; HDL Cholesterol 44 mg/dL (>40); Potassium 3.9 mmol/L (3.3-5.1); Sodium 137 mmol/L (135-145); Total Protein 6.5 g/dL (6.5-8.0); Triglycerides 89 mg/dL (<150)
[2025-04-22 11:15] LABS: Prostate Specific Antigen 1.96 ng/mL (<0.05-4.0)
[2025-04-22 11:32] LABS: Microalbum/Creatinine Ratio Ur 21.9 ug/mg cr (<30)
== END 2025-04-22 06:28 | disposition home or self-care (01) ==
LOC: HO.HMGCLDS 06:27
PROVIDERS: PCP Internal Medicine Medical Oncology; Visit Provider Internal Medicine Medical Oncology
DX: N40.1 Benign prostatic hyperplasia with lower urinary tract symptoms (principal); Z12.5 Encounter for screening for malignant neoplasm of prostate
CPT/HCPCS: 36415; 80053; 80061; 82043; 82570; 83036; 84153; 85025